=== PATIENT | male | born 1965 ===

== ENCOUNTER 2017-12-16 15:35 | Inpatient (IN) | payer BC, OTHER, MEDICARE ==
[2017-12-16 16:39] LABS: BASO # 0.1 K/uL (0.0-0.2); BASO % 0.5 % (0.0-2.0); EOS # 0.1 K/uL (0.0-0.7); EOS % 0.8 % (0.0-4.0); HEMOGLOBIN 11.6 g/dL (12.0-18.0); LYMPH # 1.4 K/uL (1.0-4.3); LYMPH % 9.8 % (20.0-40.0); MEAN CELL VOLUME 86.1 fl (80.0-94.0); MEAN CORPUSCULAR HEMOGLOBIN 27.7 pg (27.0-31.0); MEAN CORPUSCULAR HGB CONC 32.2 g/dL (33.0-37.0); MEAN PLATELET VOLUME 8.8 fl (7.2-11.7); MONO % 6.9 % (0.0-10.0); NEUT # 11.6 K/uL (1.8-7.0); PLATELET COUNT 232 K/uL (130-400); RBC 4.19 Mil/uL (4.40-5.90); RED CELL DISTRIBUTION WIDTH 15.3 % (11.5-14.5); WHITE BLOOD COUNT 14.1 K/uL (4.8-10.8)
[2017-12-16 16:42] LABS: INR 1.1
[2017-12-16 16:45] LABS: PARTIAL THROMBOPLASTIN TIME 31.4 Seconds (25.6-37.1)
--- NOTE | 2017-12-16 16:45 | ED PDOC ---
Lower Extremity Pain/Injury Time Seen by Provider: 12/16/17 15:53 Chief Complaint (Nursing): Lower Extremity Problem/Injury Chief Complaint (Provider): report of +DVT History Per: Family, Other (MS paperwork) Additional Complaint(s): 52yo male hx recent ICH in [place], s/p ventriculostomy, recently returned to [place] , presents w from [facility] for report of +DVT in E. Patient is nonverbal, communicates w gestures only. Per was having some dyspnea earlier today. Patient has an IVC filter, prior was on anticoagulaiton but had bladder hemorrhage. Also has current UTI from indwelling daniels, recently on Abx. PMD at [facility], no outpatient PMD do date in area, uses Dr Dacosta requesting him if requires admission Past Medical History Reviewed: Historical Data, Nursing Documentation, Vital Signs Vital Signs: Last Vital Signs Temp 97.9 F 12/16/17 15:37 Pulse 94 H 12/16/17 15:37 Resp 16 12/16/17 15:37 BP 91/62 L 12/16/17 15:37 Pulse Ox 97 12/16/17 15:37 - Medical History PMH: HTN (uncontrolled), Mitral Valve Prolapse Denies: Chronic Kidney Disease Other PMH: ICH - Surgical History Other surgeries: knee surgery, ventriculostomy s/p ICH - Family History Family History: States: Unknown Family Hx - Living Arrangements Living Arrangements: Prison/Assist Lvng - Social History Current smoker - smoking cessation education provided: No - Home Medications Home Medications: Ambulatory Orders Medication Instructions Recorded Atorvastatin [Lipitor] 40 mg PEG HS 01/30/16 amLODIPine [Norvasc] 10 mg PEG DAILY 01/30/16 Acetaminophen [Tylenol 325mg tab] 650 mg PEG Q4 PRN 12/16/17 Acetaminophen [Tylenol 325mg tab] 650 mg PEG Q4 PRN 12/16/17 Cefepime [Maxipime] 1 gm IV Q12 12/16/17 Clotrimazole/Betamethasone 1 appl TOP BID 12/16/17 [Lotrisone] Desmopressin [Ddavp] 0.1 mg PEG BID 12/16/17 Famotidine [Pepcid] 20 mg PEG HS 12/16/17 Glimepiride [amaRYL] 2 mg PEG DAILY 12/16/17 Insulin Regular [HumuLIN R] 2 - 12 unit SC Q6 12/16/17 Labetalol [Trandate] 200 mg PEG Q12 12/16/17 Losartan [Cozaar] 100 mg PEG DAILY 12/16/17 Ondansetron [Zofran Tab] 4 mg PEG Q8 PRN 12/16/17 Silver Sulfadiazine 1% [Silvadene 1 appl TOP BID 12/16/17 1%] - Allergies Allergies/Adverse Reactions: Allergies Allergy/AdvReac Type Severity Reaction Status Date / Time No Known Allergies Allergy Verified 01/30/16 18:07 Review of Systems Review Of Systems: ROS cannot be obtained secondary to pt's inabilty to answer questions. Physical Exam - Reviewed Nursing Documentation Reviewed: Yes Vital Signs Reviewed: Yes - Physical Exam Appears: Positive for: Non-toxic (obese bedbound nonverbal) Head Exam: Positive for: ATRAUMATIC, NORMAL INSPECTION, NORMOCEPHALIC Skin: Positive for: Normal Color, Warm, DRY Eye Exam: Positive for: EOMI, Normal appearance, PERRL ENT: Positive for: Normal ENT Inspection Neck: Positive for: Normal, Painless ROM, Trachea Midline (prior trach site healed) Cardiovascular/Chest: Positive for: Regular Rate, Rhythm Respiratory: Positive for: Decreased Breath Sounds. Negative for: Respiratory Distress Gastrointestinal/Abdominal: Positive for: Soft. Negative for: Tenderness Male Genital Exam: Positive for: normal genitalia, other (slight erythema scrotum and inner thighs nontender) Back: Positive for: Normal Inspection Extremity: Positive for: Pedal Edema, Swelling (L>R LE edema) Neurologic/Psych: Positive for: Alert, Motor/Sensory Deficits (chronic weakness bedbound nonverbal) - Laboratory Results Result Diagrams: 12/18/17 05:30 12/18/17 05:30 - ECG O2 Sat by Pulse Oximetry: 97 Medical Decision Making Medical Decision Making: workup for outpatient report of LLE DVT in patient w IVC and prior history of complications from anticoagulation. confirm DVT via duplex here Check CTA chest given SOB earlier Check labs r/o electrolyte derangement, dehydration and eval kidney function prior to CTA Disposition - Clinical Impression Clinical Impression: DVT (deep venous thrombosis), Hyperkalemia, Renal insufficiency - Patient ED Disposition Is Patient to be Admitted: Transfer of Care - Disposition Disposition: Transfer of Care Disposition Time: 16:49 Condition: STABLE Patient Signed Over To: Sandra Julian Handoff Comments: pending workup, labs, CTA/US Duplex and dispo/dx - POA Present On Arrival: Cath Associated UTI (indwelling daniels), Pressure Ulcer ( sacrum)
[2017-12-16 17:00] LABS: ALB/GLOB RATIO 1.1 (1.0-2.1); ALBUMIN 4.3 g/dL (3.5-5.0); CALCIUM 9.5 mg/dL (8.4-10.2)
[2017-12-16 17:04] LABS: TROPONIN I 0.013 ng/mL (0.00-0.120)
[2017-12-16] MEDS ORDERED: Iodixanol 320 MG/ML 100 ML BOTTLE IV ONE (17:16)
[2017-12-16] MEDS ORDERED: Sodium Chloride 0.9% 0 ML IV ONE (17:16)
[2017-12-16] MEDS ORDERED: Sod Polystyrene Sulf 15 gm/60 ml Susp PO ONE (17:27)
[2017-12-16] MEDS ORDERED: Albuterol 0.083% Inhal Sol (2.5 mg/3 mL) UD IH STA (17:27)
[2017-12-16] MEDS ORDERED: Calcium Gluconate 4.65 MEQ in Dextrose 5% In Water 100 ML IVP STA (17:28)
[2017-12-16] MEDS ORDERED: Dextrose 50% SYRINGE Inj (50 ml) IVP ONE (17:28)
[2017-12-16] MEDS ORDERED: Insulin Regular 100 units/ml IVP STA (17:28)
[2017-12-16] MEDS ORDERED: Sodium Chloride 0.9% 1,000 ML IV STA ×2 (17:31→19:11)
[2017-12-16 17:41] LABS: ANISOCYTOSIS SLIGHT; BANDS 1 % (0-2); HYPOCHROMIC SLIGHT; LYMPHOCYTE 8 % (20-50); MONOCYTE 5 % (0-10); MYELOCYTE 2 % (0-0); NEUTROPHIL 79 % (42-75); PLATELET ESTIMATE NORMAL (NORMAL); REACTIVE LYMPHOCYTES 5 % (0-0); STOMATOCYTES SLIGHT; TOTAL CELLS COUNTED 100
[2017-12-16] MEDS ORDERED: Dextrose 50% SYRINGE Inj (50 ml) ONE (17:44)
[2017-12-16] MEDS ORDERED: Albuterol 0.083% Inhal Sol (2.5 mg/3 mL) UD ONE (17:44)
[2017-12-16] MEDS ORDERED: Insulin Regular 100 units/ml ONE (17:45)
--- NOTE | 2017-12-16 19:11 | ED PDOC ---
- Laboratory Results Result Diagrams: 12/17/17 05:30 12/17/17 09:10 - ECG O2 Sat by Pulse Oximetry: 100 (RA) Pulse Ox Interpretation: Normal - Radiology X-Ray: Interpreted by Me X-Ray Interpretation: No Acute Disease - Critical Care Total Time (In Min): 30 Documented Critical Care: Time excludes all time spent performint seperately billable procedures Medical Decision Making Medical Decision Making: Time: 1699 -- Received endorsement from Dr. Rahman. Patient with leg swelling and outpatient ultrasound demonstrated DVT in the left lower extremity and shortness of breath, pending ER workup, re-assessment and final ER dispostion. -- Labs demonstrate a very elevated potassium level. Family reports a history of this. -- EKG demonstrates peaked T waves. -- Hypekalemia therapy ordered. -- Decreased GFR noted and therefore cannot undergo CT Angio of the chest -- Patient pending US of the left lower extremity and arterial dopler of the left lower extremity. Time: 1916 ARTERIAL US RESULTS FINDINGS: Biphasic waveforms are identified on spectral Doppler analysis throughout all the vessels described be low which is a pattern that may indicate mild-to- moderate stenosis at the left iliac arterial system in the pelvis or variably throughout the arteries listed be low though and no significant morphological stenosis is demonstrated at the left lower extremity. COMMON FEMORAL ARTERY: Patent. Maximal flow velocity of 89.5 cm/s. SUPERFICIAL FEMORAL ARTERY:Patent. Maximal flow velocity of 55.3 cm/s. POPLITEAL ARTERY:Patent. Maximal flow velocity of 44.8 cm/s. POSTERIOR TIBIAL ARTERY: Patent. Maximal flow velocity of 76.5 cm/s. DORSALIS PEDIS ARTERY: Patent. Maximal flow velocity of 19.1 cm/s. OTHER FINDINGS: None. IMPRESSION: No high-grade stenosis throughout the left lower extremity arteries discussed above. Bpbn-vt-[id number] left iliac arterial system stenosis may be present in the pelvis or intrinsically within the left lower extremity arteries as discussed above though no morphological stenosis is demonstrated. Further care station by CT angiography of the left upper extremity can be performed if clinically warranted. Time: 1927 LOWER EXTREMITY US RESULTS FINDINGS: At the right lower extremity, there is nonocclusive thrombosis identified at the right common femoral vein at the level of the saphenofemoral junction. No augmentation is seen throughout area Echogenic material is noted in the lumen and there is partial compressibility. Poor color blood flows also identified. Further, a similar pattern affects the proximal right superficial femoral vein compatible with the same. There is no compression at the mid and distal SFV segments nor the popliteal vein or posterior tibial vein compatible with occlusive thrombosis in all of these segments. At the left lower extremity, a nearly identical pattern of partial thrombosis is seen at the left common femoral vein however there is no compressibility identified at the left superficial femoral vein throughout and there is also no color blood flow appreciated. The lumen is echogenic compared to the its normal appearance and this pattern extends into the popliteal vein and post tibial vein. IMPRESSION: Nonocclusive thrombosis right common and proximal superficial veins with remainder completely occluded. Nonocclusive thrombosis right common femoral vein. Occlusive thrombosis otherwise seen throughout the remainder of the right lower extremity veins discussed above. Findings discussed with Dr. Julian with written down read back verification 7:20 p.m. by myself with the ER nurse Milton notified by a the technologist 6:52 p.[address] same date. DW Dr Reyna Hospitalist for pt's PMD Dr [place] [place] to be hospitalized in ICU for bilateral DVT, relative hypotension, hyperkalemia with EKG findings. Scribe Attestation: Documented by Connie Lin acting as a scribe for Dr. Sandra Julian. Provider Scribe Attestation: All medical record entries made by the Scribe were at my direction and personally dictated by me. I have reviewed the chart and agree that the record accurately reflects my personal performance of the history, physical exam, medical decision making, and the department course for this patient. I have also personally directed, reviewed, and agree with the discharge instructions and disposition. Disposition Counseled Patient/Family Regarding: Studies Performed, Diagnosis - Clinical Impression Clinical Impression: DVT (deep venous thrombosis), Hyperkalemia, Renal insufficiency - POA Present On Arrival: Deep Vein Thrombosis / PE - Disposition Disposition: Admitted as In-Patient Disposition Time: 19:35 Condition: CRITICAL
--- NOTE | 2017-12-16 19:19 | US ---
Date of service: 12/16/2017 PROCEDURE: Duplex ultrasound of the left lower extremity arteries. HISTORY: LEFT leg sewlling COMPARISON: None available. TECHNIQUE: Grayscale and duplex Doppler evaluation of the left common femoral, superficial femoral, popliteal, posterior tibial and dorsalis pedis arteries was performed.. FINDINGS: Biphasic waveforms are identified on spectral Doppler analysis throughout all the vessels described be low which is a pattern that may indicate htca-hy-egktqsor stenosis at the left iliac arterial system in the pelvis or variably throughout the arteries listed be low though and no significant morphological stenosis is demonstrated at the left lower extremity. COMMON FEMORAL ARTERY: Patent. Maximal flow velocity of 89.5 cm/s. SUPERFICIAL FEMORAL ARTERY:Patent. Maximal flow velocity of 55.3 cm/s. POPLITEAL ARTERY:Patent. Maximal flow velocity of 44.8 cm/s. POSTERIOR TIBIAL ARTERY: Patent. Maximal flow velocity of 76.5 cm/s. DORSALIS PEDIS ARTERY: Patent. Maximal flow velocity of 19.1 cm/s. OTHER FINDINGS: None. IMPRESSION: No high-grade stenosis throughout the left lower extremity arteries discussed above. Xhvw-fv-prersmoj left iliac arterial system stenosis may be present in the pelvis or intrinsically within the left lower extremity arteries as discussed above though no morphological stenosis is demonstrated. Further care station by CT angiography of the left upper extremity can be performed if clinically warranted.
--- NOTE | 2017-12-16 19:29 | US ---
Date of service: 12/16/2017 PROCEDURE: BILATERAL LOWER EXTREMITY VENOUS ULTRASOUND HISTORY: confirm as outpt LLE COMPARISON: None available. TECHNIQUE: Grayscale and duplex Doppler ultrasonography was performed including graded compression and augmentation at the bilateral common and superficial femoral as well as popliteal veins with bilateral posterior tibial veins also included. FINDINGS: At the right lower extremity, there is nonocclusive thrombosis identified at the right common femoral vein at the level of the saphenofemoral junction. No augmentation is seen throughout area Echogenic material is noted in the lumen and there is partial compressibility. Poor color blood flows also identified. Further, a similar pattern affects the proximal right superficial femoral vein compatible with the same. There is no compression at the mid and distal SFV segments nor the popliteal vein or posterior tibial vein compatible with occlusive thrombosis in all of these segments. At the left lower extremity, a nearly identical pattern of partial thrombosis is seen at the left common femoral vein however there is no compressibility identified at the left superficial femoral vein throughout and there is also no color blood flow appreciated. The lumen is echogenic compared to the its normal appearance and this pattern extends into the popliteal vein and post tibial vein. IMPRESSION: Nonocclusive thrombosis right common and proximal superficial veins with remainder completely occluded. Nonocclusive thrombosis right common femoral vein. Occlusive thrombosis otherwise seen throughout the remainder of the right lower extremity veins discussed above. Findings discussed with Dr. Julian with written down read back verification 12/16/2017 7:20 p.m. by myself with the ER nurse Milton notified by a the technologist 6:52 p.m. same date.
[2017-12-16] MEDS ORDERED: Cefepime (Maxipime) 1 g Inj IVPB SCH (21:00)
[2017-12-16] MEDS: Sodium Chloride 0.9% 1,000 ML IV SCH (22:07)
[2017-12-16] MEDS: Cefepime 1 GM in Sodium Chloride 0.9% 100 ML IVPB SCH (22:35)
--- NOTE | 2017-12-16 22:58 | CP.PCM.HP ---
History of Present Illness - History of Present Illness History of Present Illness: This is a 52 year old male, patient of Dr. Servin, with a recent ICH on September 24, 2017 in [place], s/p ventriculostomy, w/ PEG tube, nonverbal, who presented from [facility] today after found to have Left lower extremity DVT. The patient also has a history of mitral valve prolapse, HTN, and type 2 diabetes mellitus requiring insulin. Additionally 2 days ago he was diagnosed with a UTI and was started on Cefepime at [facility]. In the ED, the patient was noted to be dehydrated and hypotensive with a blood pressure of 91/62, which responded to fluid challenge. However he was noted to have an elevated potassium of 6.5 and EKG changes showing peaked T waves, particularly in leads V2 and V3. He was given Calcium chloride 1500 mg IV, D50/ Insulin, and albuterol for this. US dopplers reveal several DVT bilaterally. His bilateral extremities are cool but with good capillary reflex and color. CT angio of the chest was to be performed, however this was unable to be done due to decreased GFR. Of note the patient had an IVC filter placed in September when he was being treated for ICH. The patient's is at bedside and states that the patient's code status is full code. The patient is nonverbal and unable to give any history or review of systems. He is being admitted to ICU for close monitoring due to his hyperkalemia with EKG changes. Present on Admission - Present on Admission Any Indicators Present on Admission: Yes History of DVT/PE: Yes History of Uncontrolled Diabetes: Yes Review of Systems - Review of Systems Systems not reviewed;Unavailable: Other (nonverbal, somnolent) Past Patient History - Infectious Disease Hx of Infectious Diseases: None - Past Medical History & Family History Past Medical History?: Yes Past Family History: Reviewed and not pertinent - Past Social History Smoking Status: Never Smoked Alcohol: None Drugs: Denies Home Situation {Lives}: Half-Way - CARDIAC Hx Cardiac Disorders: Yes - PULMONARY Hx Respiratory Disorders: No - NEUROLOGICAL Hx Neurological Disorder: Yes HX Cerebrovascular Accident: Yes (x 4 times) - HEENT Other/Comment: Double/Triple vision when looking to the right. Blurry vision and pain. oculomotor nerve palsy - RENAL Hx Chronic Kidney Disease: No - ENDOCRINE/METABOLIC Hx Diabetes Insipidus: Yes Hx Diabetes Mellitus Type 2: Yes - MUSCULOSKELETAL/RHEUMATOLOGICAL Hx Falls: No - GASTROINTESTINAL Hx Constipation: Yes (Started 2 yrs ago) - GENITOURINARY/GYNECOLOGICAL Hx Genitourinary Disorders: Yes - PSYCHIATRIC Hx Substance Use: No - SURGICAL HISTORY Hx Arthroscopy: Yes (Bilateral Knee Twice ([id number])) Other/Comment: Cerebral intraventricular surgery (stroke). Abdominal IVC filter. - ANESTHESIA Hx Anesthesia: Yes Hx Anesthesia Reactions: No Hx Malignant Hyperthermia: No Meds Allergies/Adverse Reactions: Allergies Allergy/AdvReac Type Severity Reaction Status Date / Time No Known Allergies Allergy Verified 01/30/16 18:07 Physical Exam - Additional Findings Additional findings: Physical exam: Constitutional- nonverbal, communicates with gestures only, somnolent Head- NCAT, PERRL Eye- PERRL, + occulomotor palsy, EOMI ENT- normal exam, MMM. Neck- normal inspection, supple, no JVD Respiratory- CTAB, no wheezes rales rhonchi Cardiovascular- RRR, +S1, +S2 no MRG GI/Abdominal- normal bowel sounds, soft, no mass, no hsm Skin- warm, dry Extremities Exam- normal capillary refill, extremities are cool but with good color. bilateral +2 lower extremity edema. Neurological Exam- alert, awake, oriented Psych- normal mood, normal affect Results - Vital Signs Recent Vital Signs: Last Vital Signs Temp 98.2 F 12/16/17 22:00 Pulse 96 H 12/16/17 22:00 Resp 25 H 12/16/17 22:00 BP 107/69 12/16/17 22:00 Pulse Ox 98 12/16/17 22:00 - Labs Result Diagrams: 12/16/17 16:34 12/16/17 16:34 Labs: Laboratory Results - last 24 hr 12/16/17 12/16/17 12/16/17 16:34 16:34 16:34 WBC 14.1 H RBC 4.19 L Hgb 11.6 L D Hct 36.1 MCV 86.1 MCH 27.7 MCHC 32.2 L RDW 15.3 H Plt Count 232 MPV 8.8 Neut % (Auto) 82.0 H Lymph % (Auto) 9.8 L [place] % (Auto) 6.9 Eos % (Auto) 0.8 Baso % (Auto) 0.5 Neut # (Auto) 11.6 H Lymph # (Auto) 1.4 [place] # (Auto) 1.0 H Eos # (Auto) 0.1 Baso # (Auto) 0.1 Neutrophils % (Manual) 79 H Band Neutrophils % 1 Lymphocytes % (Manual) 8 L Reactive Lymphs % 5 H Monocytes % (Manual) 5 Myelocytes % 2 H Platelet Estimate Normal Hypochromasia (manual) Slight Anisocytosis (manual) Slight Stomatocytes Slight PT 12.0 INR 1.1 APTT 31.4 Sodium 135 Potassium 6.5 H* D Chloride 99 Carbon Dioxide 22 Anion Gap 21 H BUN 49 H Creatinine 1.6 H Est GFR ( Amer) 55 Est GFR (Non-Af Amer) 46 POC Glucose (mg/dL) Random Glucose 185 H Calcium 9.5 Total Bilirubin 0.7 AST 28 ALT 38 Alkaline Phosphatase 78 Troponin I 0.0130 NT-Pro-B Natriuret Pep 427 Total Protein 8.4 H Albumin 4.3 Globulin 4.0 H Albumin/Globulin Ratio 1.1 12/16/17 17:30 WBC RBC Hgb Hct MCV MCH MCHC RDW Plt Count MPV Neut % (Auto) Lymph % (Auto) [place] % (Auto) Eos % (Auto) Baso % (Auto) Neut # (Auto) Lymph # (Auto) [place] # (Auto) Eos # (Auto) Baso # (Auto) Neutrophils % (Manual) Band Neutrophils % Lymphocytes % (Manual) Reactive Lymphs % Monocytes % (Manual) Myelocytes % Platelet Estimate Hypochromasia (manual) Anisocytosis (manual) Stomatocytes PT INR APTT Sodium Potassium Chloride Carbon Dioxide Anion Gap BUN Creatinine Est GFR ( Amer) Est GFR (Non-Af Amer) POC Glucose (mg/dL) 167 H Random Glucose Calcium Total Bilirubin AST ALT Alkaline Phosphatase Troponin I NT-Pro-B Natriuret Pep Total Protein Albumin Globulin Albumin/Globulin Ratio Assessment & Plan - Assessment and Plan (Free Text) Plan: This is a 52 year old male, patient of Dr. Servin, with a recent ICH on September 24, 2017 in [place], s/p ventriculostomy, w/ PEG tube, nonverbal, who presented from [facility] today after found to have Left lower extremity DVT. The patient also has a history of mitral valve prolapse, HTN, and type 2 diabetes mellitus requiring insulin. Additionally 2 days ago he was diagnosed with a UTI and was started on Cefepime at [facility]. In the ED, the patient was noted to be dehydrated and hypotensive with a blood pressure of 91/62, which responded to fluid challenge. However he was noted to have an elevated potassium of 6.5 and EKG changes showing peaked T waves, particularly in leads V2 and V3. He was given Calcium chloride 1500 mg IV, D50/ Insulin, and albuterol for this. US dopplers reveal several DVT bilaterally. His bilateral extremities are cool but with good capillary reflex and color. CT angio of the chest was to be performed, however this was unable to be done due to decreased GFR. Of note the patient had an IVC filter placed in September when he was being treated for ICH. Patient being admitted to ICU for close monitoring. 1) Iatrogenic hyperkalemia with EKG changes - Admit to ICU - Tx was given in ED, repeat BMP tonight to monitor - Repeat EKG in AM - Patient [facility] Kdur 20 meq BID [facility] which we will [facility] - Monitor vitals / telemetry closely 2) Acute bilateral lower extremity DVT, with nonocclusive thrombosis at the right common femoral vein and proximal superficial veins, with distal superficial veins occluded. LLE also has partial thrombosis of the left common femoral vein with occlusion of the superficial femoral vein. - Anticoagulation is a concern given recent ICH, will hold off for now. Will consult Dr. Noel for neurology - Patient has IVC filter in place, however should still rule out pulmonary embolism. Will attempt CT angio in AM if renal function improved, otherwise will perform VQ scan. Respiratory camargo patient is stable and saturating well on room air Extremities cool and edematous but patient has good capillary refill and good color 3) Acute renal insufficiency, likely due to dehydration / prerenal azotemia, also consider urinary retention as cause - Patient had normal renal function 02/07 - Continue aggressive hydration with normal saline - monitor urine output 4) Type 2 DM requiring insulin - Lispro sliding scale with Accucheks q 6 hours - Resume tube feedings when clinical status improved 5) Hypovolemic hypotension, improved with fluids - Continue normal salin at 200 cc/hour overnight - BP improved to 100/69 currently 6) UTI - Continue Cefepime which was being given in SNF - Follow urine culture - May be cause of leukocytosis
[2017-12-16] MEDS: Insulin Lispro (humaLOG) 100 Units/ml Inj SC SCH (23:27)
[2017-12-16] MEDS: Famotidine 40 MG/5 ML PEG SCH (23:30)
[2017-12-17 01:44] VITALS: BMI 36.1
[2017-12-17] MEDS: Sodium Chloride 0.9% 1,000 ML IV SCH ×2 (04:39→12:01)
[2017-12-17] MEDS: Insulin Lispro (humaLOG) 100 Units/ml Inj SC SCH ×3 (06:02→16:44)
[2017-12-17 06:03] LABS: HEMOGLOBIN 10.2 g/dL (12.0-18.0); MEAN CELL VOLUME 86.3 fl (80.0-94.0); MEAN CORPUSCULAR HEMOGLOBIN 27.8 pg (27.0-31.0); MEAN CORPUSCULAR HGB CONC 32.2 g/dL (33.0-37.0); RBC 3.66 Mil/uL (4.40-5.90); RED CELL DISTRIBUTION WIDTH 15.6 % (11.5-14.5); WHITE BLOOD COUNT 14.7 K/uL (4.8-10.8)
[2017-12-17 06:59] LABS: SQUAMOUS EPITHIAL < 1 /hpf (0-5); URINE BACTERIA RARE (<OCC); URINE BILIRUBIN NEGATIVE (NEGATIVE); URINE BLOOD NEGATIVE (NEGATIVE); URINE CLARITY CLOUDY (Clear); URINE COLOR AMBER (YELLOW); URINE GLUCOSE (UA) NEG (Normal); URINE LEUKOCYTE ESTERASE TRACE Leu/uL (Negative); URINE PROTEIN >=500 mg/dL (NEGATIVE); URINE UROBILINOGEN 0.2-1.0 mg/dL (0.2-1.0)
--- NOTE | 2017-12-17 08:20 | CARD ---
APPROVED REPORT Date of service: 12/16/2017 <Conclusion> Normal sinus rhythm Nonspecific ST and T wave abnormality Abnormal ECG
[2017-12-17] MEDS: Cefepime 1 GM in Sodium Chloride 0.9% 100 ML IVPB SCH ×2 (08:25→22:21)
[2017-12-17] MEDS ORDERED: Silver Sulfadiazine 1% CREAM (50 gm) TOP SCH (09:00)
--- NOTE | 2017-12-17 09:25 | CP.PCM.PN ---
Subjective - Date & Time of Evaluation Date of Evaluation: 12/17/17 Time of Evaluation: 11:30 - Subjective Subjective: Patient seen bedside. Lying in bed in no respiratory distress, non verbal with left side weakness and neglect Tachycardic HR 105 BP stable 105/60 WBC 14 K BUN/Cr 52/1.[address] with good urine output peg tube in place Objective - Vital Signs/Intake and Output Vital Signs (last 24 hours): Temp Pulse Resp BP Pulse Ox 98.5 F 102 H 98 H 128/64 98 12/17/17 08:00 12/17/17 09:00 12/17/17 09:00 12/17/17 09:00 12/17/17 08:00 Intake and Output: 12/17/17 12/17/17 06:59 18:59 Intake Total 2200 200 Output Total 500 Balance 1700 200 - Medications Medications: Current Medications Acetaminophen (Tylenol 325mg Tab) 650 mg PEG Q4 PRN PRN Reason: Temp >100 Acetaminophen (Tylenol 325mg Tab) 650 mg PEG Q4 PRN PRN Reason: Pain, Mild (1-3) Last Admin: 12/17/17 05:41 Dose: 650 mg Clotrimazole (Lotrimin 1% Cream) 1 applic TOP BID [facility] Last Admin: 12/17/17 08:27 Dose: 1 applic Famotidine (Pepcid) 20 mg PEG HS [facility] Last Admin: 12/16/17 23:30 Dose: 20 mg Sodium Chloride (Sodium Chloride 0.9%) 1,000 mls @ 200 mls/hr IV .Q5H [facility] Last Admin: 12/17/17 04:39 Dose: 200 mls/hr Cefepime HCl 1 gm/ Sodium (Chloride) 100 mls @ 100 mls/hr IVPB Q12 [facility] Last Admin: 12/17/17 08:25 Dose: 100 mls/hr Insulin Human Lispro (Humalog) 0 units SC ACCU-CHECK [facility] PRN Reason: Protocol Last Admin: 12/17/17 06:02 Dose: Not Given Ondansetron HCl (Zofran Tab) 4 mg PEG Q8 PRN PRN Reason: Nausea/Vomiting Pantoprazole Sodium (Protonix Inj) 40 mg IVP DAILY [facility] Last Admin: 12/17/17 08:25 Dose: 40 mg Silver Sulfadiazine (Silvadene 1% 50 Gm) 1 applic TOP BID [facility] - Labs Labs: 12/17/17 05:30 12/16/17 16:34 PT 12.0 Seconds (9.8-13.1) 12/16/17 16:34 INR 1.1 12/16/17 16:34 APTT 31.4 Seconds (25.6-37.1) 12/16/17 16:34 - Constitutional Appears: Non-toxic, No Acute Distress - Head Exam Head Exam: ATRAUMATIC, NORMOCEPHALIC - Eye Exam Eye Exam: PERRL Pupil Exam: NORMAL ACCOMODATION - ENT Exam ENT Exam: Mucous Membranes Dry, Normal Exam - Neck Exam Neck Exam: Normal Inspection - Respiratory Exam Respiratory Exam: Clear to Ausculation Bilateral, NORMAL BREATHING PATTERN. absent: Rales, Rhonchi, Wheezes - Cardiovascular Exam Cardiovascular Exam: Tachycardia, REGULAR RHYTHM. absent: JVD - GI/Abdominal Exam GI & Abdominal Exam: Soft. absent: Distended, Guarding, Tenderness, Normal Bowel Sounds, Rebound Additional comments: peg tube in place - Rectal Exam Rectal Exam: Deferred - Extremities Exam Extremities Exam: Normal Capillary Refill Additional comments: LLE selling - Neurological Exam Neurological Exam: Alert, Awake Neuro motor strength exam: Left Upper Extremity: 0, Left Lower Extremity: 0 Additional comments: left side weakness and neglect non verbal - Psychiatric Exam Psychiatric exam: Flat Affect - Skin Skin Exam: Dry, Warm Assessment and Plan - Assessment and Plan (Free Text) Assessment: 52 year old male, patient of Dr. Servin, with a recent ICH on September 24, 2017 in [place], s/p ventriculostomy, w/ PEG tube, nonverbal, presented from [facility] today after found to have Left lower extremity DVT. The patient also has a history of mitral valve prolapse, HTN, and type 2 diabetes mellitus requiring insulin. Additionally 2 days ago he was diagnosed with a UTI and was started on Cefepime at [facility]. In the ED, the patient was noted to be dehydrated and hypotensive with a blood pressure of 91/62, which responded to fluid challenge. However he was noted to have an elevated potassium of 6.5 and EKG changes showing peaked T waves, particularly in leads V2 and V3. He was given Calcium chloride 1500 mg IV, D50/ Insulin, and albuterol for this. US dopplers reveal several DVT bilaterally. His bilateral extremities are cool but with good capillary reflex and color. CT angio of the chest was to be performed, however this was unable to be done due to decreased GFR. Of note the patient had an IVC filter placed in September when he was being treated for ICH. Patient being admitted to ICU for close monitoring. 1.Iatrogenic hyperkalemia with EKG changes Given treatment with D50 , insulin , IVF, Duonebs calcium gluconate Repeat K 5.3 D/c Kdur supplements Transfer to telemetry Repeat BMP in AM 2. Acute bilateral lower extremity DVT with nonocclusive thrombosis at the right common femoral vein and proximal superficial veins, with distal superficial veins occluded. LLE also has partial thrombosis of the left common femoral vein with occlusion of the superficial femoral vein. Patient has recent ICH in September 2017 so anticoagulation is a concern for bleed .Will hold off anticoagulation since patient has IVC filter Respiratory camargo patient is stable and saturating well on room air 3.Acute renal insufficiency likely due to dehydration / prerenal azotemia, also consider urinary retention as cause improving Continue IVF and repeat BMP in AM 4. Type 2 DM requiring insulin Lispro sliding scale with Accucheks q 6 hours Resume tube feeding 5. Hypovolemic hypotension, improved with fluids IVF BP improved to 100/69 currently 6. UTI Continue Cefepime which was being given in SNF f/u urine cx 7. Mild anemia unclear etiology stable 8. Recent ICH with left side weakness , neglect and non verbal will need to continue PT in rehab
[2017-12-17 09:43] LABS: ALB/GLOB RATIO 1.1 (1.0-2.1); ALBUMIN 3.8 g/dL (3.5-5.0); CALCIUM 9.1 mg/dL (8.4-10.2)
[2017-12-17] MEDS ORDERED: Silver Sulfadiazine 1% Cream (20 gm) TOP SCH (11:45)
--- NOTE | 2017-12-17 16:20 | RAD ---
Date of service: 12/16/2017 HISTORY: sob COMPARISON: No prior. FINDINGS: LUNGS: Poor inspiration with low lung volumes, crowded bronchovascular markings and mild bibasilar atelectasis. PLEURA: No significant pleural effusion identified, no pneumothorax apparent. CARDIOVASCULAR: Mild cardiomegaly. OSSEOUS STRUCTURES: No significant abnormalities. VISUALIZED UPPER ABDOMEN: Normal. OTHER FINDINGS: None. IMPRESSION: Poor inspiration with low lung volumes, crowded bronchovascular markings and mild bibasilar atelectasis.
[2017-12-17] MEDS: Famotidine 40 MG/5 ML PEG SCH (22:22)
[2017-12-18] MEDS: Insulin Lispro (humaLOG) 100 Units/ml Inj SC SCH ×3 (01:38→11:43)
[2017-12-18] MEDS: Sodium Chloride 0.9% 1,000 ML IV SCH (02:51)
[2017-12-18 06:45] LABS: BLOOD UREA NITROGEN 47 mg/dl (9-20); CALCIUM 9.3 mg/dL (8.4-10.2); GFR NON-AFRICAN AMERICAN > 60
[2017-12-18 06:47] LABS: HEMOGLOBIN 10.2 g/dL (12.0-18.0); MEAN CORPUSCULAR HEMOGLOBIN 28.1 pg (27.0-31.0); MEAN CORPUSCULAR HGB CONC 33.1 g/dL (33.0-37.0); RBC 3.63 Mil/uL (4.40-5.90); RED CELL DISTRIBUTION WIDTH 15.1 % (11.5-14.5); WHITE BLOOD COUNT 13.3 K/uL (4.8-10.8)
--- NOTE | 2017-12-18 07:03 | CP.PCM.DIS ---
Provider - Provider Date of Admission: 12/16/17 19:34 Attending physician: Parker Reyna DO Primary care physician: none Consults: neurology consult Time Spent in preparation of Discharge (in minutes): 15 Hospital Course - Lab Results Lab Results: Micro Results 12/16/17 20:30 Blood-Venous Blood Culture - Preliminary NO GROWTH AFTER 24 HOURS Most Recent Lab Values WBC 13.3 K/uL (4.8-10.8) H 12/18/17 05:30 RBC 3.63 Mil/uL (4.40-5.90) L 12/18/17 05:30 Hgb 10.2 g/dL (12.0-18.0) L 12/18/17 05:30 Hct 30.8 % (35.0-51.0) L 12/18/17 05:30 MCV 85.0 fl (80.0-94.0) 12/18/17 05:30 MCH 28.1 pg (27.0-31.0) 12/18/17 05:30 MCHC 33.1 g/dL (33.0-37.0) 12/18/17 05:30 RDW 15.1 % (11.5-14.5) H 12/18/17 05:30 Plt Count 279 K/uL (130-400) 12/18/17 05:30 MPV 8.8 fl (7.2-11.7) 12/16/17 16:34 Neut % (Auto) 82.0 % (50.0-75.0) H 12/16/17 16:34 Lymph % (Auto) 9.8 % (20.0-40.0) L 12/16/17 16:34 Aiken % (Auto) 6.9 % (0.0-10.0) 12/16/17 16:34 Eos % (Auto) 0.8 % (0.0-4.0) 12/16/17 16:34 Baso % (Auto) 0.5 % (0.0-2.0) 12/16/17 16:34 Neut # (Auto) 11.6 K/uL (1.8-7.0) H 12/16/17 16:34 Lymph # (Auto) 1.4 K/uL (1.0-4.3) 12/16/17 16:34 Aiken # (Auto) 1.0 K/uL (0.0-0.8) H 12/16/17 16:34 Eos # (Auto) 0.1 K/uL (0.0-0.7) 12/16/17 16:34 Baso # (Auto) 0.1 K/uL (0.0-0.2) 12/16/17 16:34 Neutrophils % (Manual) 79 % (42-75) H 12/16/17 16:34 Band Neutrophils % 1 % (0-2) 12/16/17 16:34 Lymphocytes % (Manual) 8 % (20-50) L 12/16/17 16:34 Reactive Lymphs % 5 % (0-0) H 12/16/17 16:34 Monocytes % (Manual) 5 % (0-10) 12/16/17 16:34 Myelocytes % 2 % (0-0) H 12/16/17 16:34 Platelet Estimate Normal (NORMAL) 12/16/17 16:34 Hypochromasia (manual) Slight 12/16/17 16:34 Anisocytosis (manual) Slight 12/16/17 16:34 Stomatocytes Slight 12/16/17 16:34 PT 12.0 Seconds (9.8-13.1) 12/16/17 16:34 INR 1.1 12/16/17 16:34 APTT 31.4 Seconds (25.6-37.1) 12/16/17 16:34 Sodium 139 mmol/l (132-148) 12/18/17 05:30 Potassium 4.7 MMOL/L (3.6-5.0) 12/18/17 05:30 Chloride 106 mmol/L (98-107) 12/18/17 05:30 Carbon Dioxide 24 mmol/L (22-30) 12/18/17 05:30 Anion Gap 14 (10-20) 12/18/17 05:30 BUN 47 mg/dl (9-20) H 12/18/17 05:30 Creatinine 0.9 mg/dl (0.8-1.5) 12/18/17 05:30 Est GFR ( Amer) > 60 12/18/17 05:30 Est GFR (Non-Af Amer) > 60 12/18/17 05:30 POC Glucose (mg/dL) 98 mg/dL (65-110) 12/18/17 05:30 Random Glucose 114 mg/dL (75-110) H 12/18/17 05:30 Calcium 9.3 mg/dL (8.4-10.2) 12/18/17 05:30 Phosphorus 5.7 mg/dl (2.5-4.5) H 12/17/17 09:10 Magnesium 2.3 MG/DL (1.6-2.3) 12/17/17 09:10 Total Bilirubin 0.6 mg/dl (0.2-1.3) 12/17/17 09:10 AST 24 U/L (17-59) 12/17/17 09:10 ALT 31 U/L (21-72) 12/17/17 09:10 Alkaline Phosphatase 69 U/L (38-126) 12/17/17 09:10 Troponin I 0.0130 ng/mL (0.00-0.120) 12/16/17 16:34 NT-Pro-B Natriuret Pep 427 pg/ml (0-900) 12/16/17 16:34 Total Protein 7.2 G/DL (6.3-8.2) 12/17/17 09:10 Albumin 3.8 g/dL (3.5-5.0) 12/17/17 09:10 Globulin 3.4 gm/dL (2.2-3.9) 12/17/17 09:10 Albumin/Globulin Ratio 1.1 (1.0-2.1) 12/17/17 09:10 Procalcitonin 0.19 NG/ML (0.19-0.49) 12/16/17 20:30 Urine Color Courtney (YELLOW) 12/17/17 06:42 Urine Clarity Cloudy (Clear) 12/17/17 06:42 Urine pH 5.0 (5.0-8.0) 12/17/17 06:42 Ur Specific [place] 1.027 (1.003-1.030) 12/17/17 06:42 Urine Protein >=500 mg/dL (NEGATIVE) 12/17/17 06:42 Urine Glucose (UA) Neg mg/dL (Normal) 12/17/17 06:42 Urine Ketones Negative mg/dL (NEGATIVE) 12/17/17 06:42 Urine Blood Negative (NEGATIVE) 12/17/17 06:42 Urine Nitrate Negative (NEGATIVE) 12/17/17 06:42 Urine Bilirubin Negative (NEGATIVE) 12/17/17 06:42 Urine Urobilinogen 0.2-1.0 mg/dL (0.2-1.0) 12/17/17 06:42 Ur Leukocyte Esterase Trace Byron/uL (Negative) 12/17/17 06:42 Urine RBC (Auto) 34 /hpf (0-3) H 12/17/17 06:42 Urine Microscopic WBC 146 /hpf (0-5) H 12/17/17 06:42 Ur Squamous Epith Cells < 1 /hpf (0-5) 12/17/17 06:42 Urine Bacteria Rare (<OCC) 12/17/17 06:42 Urine Yeast (Budding) Occ /hpf (NEGATIVE) H 12/17/17 06:42 - Hospital Course Hospital Course: 52 year old male, patient of Dr. Servin, with a recent ICH on September 24, 2017 in [place], s/p ventriculostomy, w/ PEG tube, nonverbal, presented from [facility] after found to have Left lower extremity DVT. The patient also has a history of mitral valve prolapse, HTN, and type 2 diabetes mellitus requiring insulin. Additionally 2 days ago he was diagnosed with a UTI and was started on Cefepime at [facility]. In the ED, the patient was noted to be dehydrated and hypotensive with a blood pressure of 91/62, which responded to fluid challenge. However he was noted to have an elevated potassium of 6.5 and EKG changes showing peaked T waves, particularly in leads V2 and V3. He was given Calcium chloride 1500 mg IV, D50/ Insulin, and albuterol for this. US dopplers reveal several DVT bilaterally. His bilateral extremities are with good capillary reflex and color. Of note the patient had an IVC filter placed in September when he was being treated for ICH and hematuria. Patient was admitted in ICU for close monitoring, started on IVF, treated for hyperkalemia and resumed his other meds.Upon review of his home meds noted that he was taking Kdur 20 MEQ po bid so it was discontinued . Due to his recent ICH and hematuria patient is not a candidate for anticoagulation . His Shabbir improved with hydration At present he is hemodynamically stable, afebrile , non verbal with left side weakness and neglect Will discharge patient back to [facility] for continuation of his treatment and PT . Follow up with MD at [facility] All results were discussed with patient's and all questions were ANSWERED. 1.Iatrogenic hyperkalemia with EKG changes Given treatment with D50 , insulin , IVF, Duonebs calcium gluconate D/c Kdur supplements repeat K within normal range 2. Acute bilateral lower extremity DVT with nonocclusive thrombosis at the right common femoral vein and proximal superficial veins, with distal superficial veins occluded. LLE also has partial thrombosis of the left common femoral vein with occlusion of the superficial femoral vein. Patient has recent ICH in September 2017 so anticoagulation is a concern for bleed .Will hold off anticoagulation since patient has IVC filter Respiratory camargo patient is stable and saturating well on room air 3.Acute renal insufficiency likely due to dehydration / prerenal azotemia improved with hydration Gomez replaced and draining wel 4. Type 2 DM requiring insulin Lispro sliding scale with Accucheks q 6 hours Resumed tube feeding with water flushes 5. Hypovolemic hypotension, improved with fluids IVF BP improved to 100/69 currently 6. UTI Continue Cefepime which was being given in SNF 7. Mild anemia unclear etiology stable 8. Recent ICH with left side weakness , neglect and non verbal will need to continue PT in rehab Discharge Exam - Head Exam Head Exam: ATRAUMATIC, NORMOCEPHALIC - Eye Exam Eye Exam: EOMI, PERRL Pupil Exam: NORMAL ACCOMODATION - ENT Exam ENT Exam: Mucous Membranes Dry, Normal Exam - Neck Exam Neck exam: Normal Inspection - Respiratory Exam Respiratory Exam: Clear to PA & Lateral, NORMAL BREATHING PATTERN. absent: Rales, Rhonchi, Wheezes - Cardiovascular Exam Cardiovascular Exam: REGULAR RHYTHM, RRR, +S1, +S2. absent: JVD - GI/Abdominal Exam GI & Abdominal Exam: Normal Bowel Sounds, Soft. absent: Guarding, Rebound, Tenderness Additional comments: peg in place - Rectal Exam Rectal Exam: Deferred - Extremities Exam Extremities exam: pedal pulses present Additional comments: swelling to LLE - Neurological Exam Neurological exam: Alert, CN II-XII Intact Additional comments: non verbal left side weakness and neglect - Psychiatric Exam Psychiatric exam: Flat Affect - Skin Skin Exam: Dry, Intact, Normal Color, Warm Discharge Plan - Follow Up Plan Condition: STABLE Disposition: TRANSF TO SNF Patient education suggested?: Yes Instructions: Deep Vein Thrombosis (Blood Clots in the Legs), Hyperkalemia (DC) , Preventing Falls Additional Instructions: Discharge patient to [place], [place], for continued care.
[2017-12-18 07:44] VITALS: TEMP 98.4
[2017-12-18] MEDS: Cefepime 1 GM in Sodium Chloride 0.9% 100 ML IVPB SCH (08:40)
--- NOTE | 2017-12-18 11:22 | CP.PCM.CON ---
History of Present Illness - History of Present Illness History of Present Illness: 52 yr old male with a long standing history of DVT, not on coumadin, and prior strokes that were most likely in the left mca distribution, resulting in aphasia, is seen today for a neurological evaluation. started to have increasing leg swelling and was brought in by his , and admitted to the ICU. He is now stable with no neurological deficits. There was no seizure, no weakness, no headache, no new symptoms in addition to his baseline stroke symptoms. ROS: unable to obtain as patient is awake and nonverbal. ROS obtained from his . PMH/PSH: as above. FH/SH: . 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 PERRL. CN 2-12 normal. PLegic, increased swelling in left leg. +2 dtr ul and ll bl. Toes downgoing. No clonus. Gait not tested. left sided weaness. Past Patient History - Infectious Disease Hx of Infectious Diseases: None - Past Medical History & Family History Past Medical History?: Yes Past Family History: Reviewed and not pertinent - Past Social History Smoking Status: Never Smoked Alcohol: None Drugs: Denies Home Situation {Lives}: Snf - CARDIAC Hx Cardiac Disorders: Yes - PULMONARY Hx Respiratory Disorders: No - NEUROLOGICAL Hx Neurological Disorder: Yes HX Cerebrovascular Accident: Yes (x 4 times) - HEENT Other/Comment: Double/Triple vision when looking to the right. Blurry vision and pain. oculomotor nerve palsy - RENAL Hx Chronic Kidney Disease: No - ENDOCRINE/METABOLIC Hx Diabetes Insipidus: Yes Hx Diabetes Mellitus Type 2: Yes - HEMATOLOGICAL/ONCOLOGICAL Hx Blood Disorders: No Hx AIDS: No Hx Blood Transfusions: Yes Hx Blood Transfusion Reaction: No Hx Human Immunodeficiency Virus (HIV): No Other/Comment: pt is Jehovahs witness - INTEGUMENTARY Hx Dermatological Problems: No - MUSCULOSKELETAL/RHEUMATOLOGICAL Hx Falls: No - GASTROINTESTINAL Hx Constipation: Yes (Started 2 yrs ago) - GENITOURINARY/GYNECOLOGICAL Hx Genitourinary Disorders: Yes - PSYCHIATRIC Hx Substance Use: No - SURGICAL HISTORY Hx Arthroscopy: Yes (Bilateral Knee Twice ([id number])) Other/Comment: Cerebral intraventricular surgery (stroke). Abdominal IVC filter. - ANESTHESIA Hx Anesthesia: Yes Hx Anesthesia Reactions: No Hx Malignant Hyperthermia: No Meds Allergies/Adverse Reactions: Allergies Allergy/AdvReac Type Severity Reaction Status Date / Time No Known Allergies Allergy Verified 01/30/16 18:07 - Medications Medications: Current Medications Acetaminophen (Tylenol 325mg Tab) 650 mg PEG Q4 PRN PRN Reason: Temp >100 Acetaminophen (Tylenol 325mg Tab) 650 mg PEG Q4 PRN PRN Reason: Pain, Mild (1-3) Last Admin: 12/17/17 05:41 Dose: 650 mg Clotrimazole (Lotrimin 1% Cream) 1 applic TOP BID [facility] Last Admin: 12/18/17 08:23 Dose: 1 applic Famotidine (Pepcid) 20 mg PEG HS [facility] Last Admin: 12/17/17 22:22 Dose: 20 mg Cefepime HCl 1 gm/ Sodium (Chloride) 100 mls @ 100 mls/hr IVPB Q12 [facility] Last Admin: 12/18/17 08:40 Dose: 100 mls/hr Sodium Chloride (Sodium Chloride 0.9%) 1,000 mls @ 75 mls/hr IV .[id number] [facility] Stop: 12/18/17 11:49 Last Admin: 12/18/17 02:51 Dose: 75 mls/hr Insulin Human Lispro (Humalog) 0 units SC ACCU-CHECK [facility] PRN Reason: Protocol Last Admin: 12/18/17 06:37 Dose: Not Given Ondansetron HCl (Zofran Tab) 4 mg PEG Q8 PRN PRN Reason: Nausea/Vomiting Pantoprazole Sodium (Protonix Inj) 40 mg IVP DAILY [facility] Last Admin: 12/18/17 08:18 Dose: 40 mg Results - Vital Signs Recent Vital Signs: Last Vital Signs Temp 98.4 F 12/18/17 07:44 Pulse 105 H 12/18/17 08:46 Resp 24 12/18/17 08:46 BP 121/77 12/18/17 08:46 Pulse Ox 98 12/18/17 08:46 - Labs Result Diagrams: 12/18/17 05:30 12/18/17 05:30 Labs: Laboratory Results - last 24 hr 12/16/17 12/17/17 12/17/17 20:30 11:09 16:42 WBC RBC Hgb Hct MCV MCH MCHC RDW Plt Count Sodium Potassium Chloride Carbon Dioxide Anion Gap BUN Creatinine Est GFR ( Amer) Est GFR (Non-Af Amer) POC Glucose (mg/dL) 112 H 110 Random Glucose Calcium Procalcitonin 0.19 12/17/17 12/18/17 12/18/17 23:09 05:30 05:30 WBC 13.3 H RBC 3.63 L Hgb 10.2 L Hct 30.8 L MCV 85.0 MCH 28.1 MCHC 33.1 RDW 15.1 H Plt Count 279 Sodium 139 Potassium 4.7 Chloride 106 Carbon Dioxide 24 Anion Gap 14 BUN 47 H Creatinine 0.9 Est GFR ( Amer) > 60 Est GFR (Non-Af Amer) > 60 POC Glucose (mg/dL) 109 Random Glucose 114 H Calcium 9.3 Procalcitonin 12/18/17 05:30 WBC RBC Hgb Hct MCV MCH MCHC RDW Plt Count Sodium Potassium Chloride Carbon Dioxide Anion Gap BUN Creatinine Est GFR ( Amer) Est GFR (Non-Af Amer) POC Glucose (mg/dL) 98 Random Glucose Calcium Procalcitonin Assessment & Plan - Assessment and Plan (Free Text) Assessment: 52 yr old male who is here for dvt treatment with neurology consult placed for possible stroke. Mr Arthur does not appear to have a new stroke per history and exam, however, he is hypercoagulable for unknown reason. I would recommend referring him to hematology for hypercoagulable workup on outpatient basis, and follow with cardiology. Thank you please reconsult prn. DR north
[2017-12-18 12:43] VITALS: BP 136/89; PULSE 101; RESP 25
[2017-12-19 10:45] VITALS: O2SAT 97
== END 2017-12-18 12:51 | DRG 300 ==
LOC: H.ER 15:35 → H.ERHOLD 19:34 → H.ICU/CCU 21:17
PROVIDERS: ADMIT Internal Medicine; ATTEND Internal Medicine
DX: I82.413 Acute embolism and thrombosis of femoral vein, bilateral (principal); T83.518A Infection and inflammatory reaction due to other urinary catheter, initial encounter; N17.9 Acute kidney failure, unspecified; N39.0 Urinary tract infection, site not specified; E23.2 Diabetes insipidus; I82.403 Acute embolism and thrombosis of unspecified deep veins of lower extremity, bilateral; H49.00 Third [oculomotor] nerve palsy, unspecified eye; I10 Essential (primary) hypertension; I34.1 Nonrheumatic mitral (valve) prolapse; Y84.9 Medical procedure, unspecified as the cause of abnormal reaction of the patient, or of later complication, without mention of misadventure at the time of the procedure; Y92.9 Unspecified place or not applicable; Z79.4 Long term (current) use of insulin; Z86.73 Personal history of transient ischemic attack (TIA), and cerebral infarction without residual deficits; Z93.1 Gastrostomy status; K59.00 Constipation, unspecified; Y84.6 Urinary catheterization as the cause of abnormal reaction of the patient, or of later complication, without mention of misadventure at the time of the procedure; Z79.84 Long term (current) use of oral hypoglycemic drugs; I95.9 Hypotension, unspecified; R00.0 Tachycardia, unspecified; D64.9 Anemia, unspecified; E11.9 Type 2 diabetes mellitus without complications; E86.0 Dehydration; E86.1 Hypovolemia

== ENCOUNTER 2018-01-17 20:59 | Inpatient (IN) | payer BC, MEDICARE ==
[2018-01-17 22:02] LABS: HEMOGLOBIN 11.2 g/dL (12.0-18.0); MEAN CELL VOLUME 83.3 fl (80.0-94.0); MEAN CORPUSCULAR HEMOGLOBIN 28.1 pg (27.0-31.0); MEAN CORPUSCULAR HGB CONC 33.7 g/dL (33.0-37.0); RED CELL DISTRIBUTION WIDTH 15.2 % (11.5-14.5); WHITE BLOOD COUNT 7.8 K/uL (4.8-10.8)
--- NOTE | 2018-01-17 22:19 | ED PDOC ---
HPI: Chest Pain Time Seen by Provider: 01/17/18 21:21 Chief Complaint (Nursing): Chest Pain Chief Complaint (Provider): Chest Pain History Per: Family () History/Exam Limitations: physical impairment Onset/Duration Of Symptoms: Days Current Symptoms Are (Timing): Still Present Additional Complaint(s): 52 y/o male with a PMHx of CVA, hypercholesterolemia, HTN, DM and renal insufficiency presenting with chest pain, occurring for the past month. Patient initially thought to be due to subluxation of the shoulder. Pain has been occurring now with increase frequency according to the . All history was obtained from the as patient is non-verbal. PMD: Dr. Beth Past Medical History Reviewed: Historical Data, Nursing Documentation, Vital Signs Vital Signs: Last Vital Signs Temp 98.4 F 01/17/18 21:03 Pulse 72 01/17/18 21:03 Resp 18 01/17/18 21:03 BP 134/82 01/17/18 21:03 Pulse Ox 96 01/17/18 22:24 - Medical History PMH: Fractures, HTN (uncontrolled), Hypercholesterolemia (Renal Insufficiency), Hyperlipidemia (mild), Mitral Valve Prolapse, Pneumonia (3 months ago), TIA Denies: HIV, Chronic Kidney Disease - Family History Family History: States: Unknown Family Hx - Home Medications Home Medications: Ambulatory Orders Medication Instructions Recorded Atorvastatin [Lipitor] 40 mg PEG HS 01/30/16 amLODIPine [Norvasc] 10 mg PEG DAILY 01/30/16 Acetaminophen [Tylenol 325mg tab] 650 mg PEG Q4 PRN 12/16/17 Acetaminophen [Tylenol 325mg tab] 650 mg PEG Q4 PRN 12/16/17 Cefepime [Maxipime] 1 gm IV Q12 12/16/17 Clotrimazole/Betamethasone 1 appl TOP BID 12/16/17 [Lotrisone] Desmopressin [Ddavp] 0.1 mg PEG BID 12/16/17 Famotidine [Pepcid] 20 mg PEG HS 12/16/17 Glimepiride [amaRYL] 2 mg PEG DAILY 12/16/17 Insulin Regular [HumuLIN R] 2 - 12 unit SC Q6 12/16/17 Labetalol [Trandate] 200 mg PEG Q12 12/16/17 Losartan [Cozaar] 100 mg PEG DAILY 12/16/17 Ondansetron [Zofran Tab] 4 mg PEG Q8 PRN 12/16/17 Silver Sulfadiazine 1% [Silvadene 1 appl TOP BID 12/16/17 1%] - Allergies Allergies/Adverse Reactions: Allergies Allergy/AdvReac Type Severity Reaction Status Date / Time No Known Allergies Allergy Verified 01/17/18 21:03 Review of Systems ROS Statement: Except As Marked, All Systems Reviewed And Found Negative Cardiovascular: Positive for: Chest Pain Physical Exam - Reviewed Nursing Documentation Reviewed: Yes Vital Signs Reviewed: Yes - Physical Exam Appears: Positive for: Well. Negative for: Uncomfortable (Comfortable) Head Exam: Positive for: ATRAUMATIC Skin: Positive for: Normal Color, Warm, Dry Eye Exam: Positive for: Normal appearance, EOMI, PERRL ENT: Positive for: Normal ENT Inspection Neck: Positive for: Normal, Painless ROM Cardiovascular/Chest: Positive for: Regular Rate, Rhythm, Chest Non Tender Respiratory: Positive for: Normal Breath Sounds. Negative for: Respiratory Distress Gastrointestinal/Abdominal: Positive for: Normal Exam, Soft. Negative for: Tenderness Back: Positive for: Normal Inspection. Negative for: L CVA Tenderness, R CVA Tenderness Extremity: Positive for: Normal ROM. Negative for: Pedal Edema, Deformity Neurologic/Psych: Positive for: Alert. Negative for: Oriented (patient is non- verbal) - Laboratory Results Result Diagrams: 01/17/18 21:57 01/17/18 21:57 - ECG O2 Sat by Pulse Oximetry: 96 (RA) Pulse Ox Interpretation: Normal Medical Decision Making Medical Decision Making: Time: 2156 A/P: 52 y/o male with a PMHx of hypercholesterolemia, HTN, DM, renal insufficiency and DM. -- Patient has significant cardiac comorbidities. -- Will require in patient management. -- Continuous cardiac monitoring. -- Serial Troponins and further workup as warranted. -- Case discussed with Dr. Beth who agrees with plan. -- BMP -- Troponin -- CBC -- PTT -- Prothrombin Time -- CXR Portable -- Admit to Hospital Scribe Attestation: Documented by Connie Lin acting as a scribe for Bryon Licea MD. Provider Scribe Attestation: All medical record entries made by the Scribe were at my direction and personally dictated by me. I have reviewed the chart and agree that the record accurately reflects my personal performance of the history, physical exam, medical decision making, and the department course for this patient. I have also personally directed, reviewed, and agree with the discharge instructions and disposition. Disposition - Clinical Impression Clinical Impression: Chest pain - Patient ED Disposition Is Patient to be Admitted: No - Disposition Disposition Time: 21:57 Condition: FAIR
[2018-01-17 22:29] LABS: BLOOD UREA NITROGEN 16 mg/dl (9-20); CALCIUM 9.1 mg/dL (8.4-10.2); GFR NON-AFRICAN AMERICAN > 60
[2018-01-17 22:31] LABS: INR 1.1; PROTHROMBIN TIME 11.7 Seconds (9.8-13.1)
[2018-01-17 22:34] LABS: PARTIAL THROMBOPLASTIN TIME 33.8 Seconds (25.6-37.1)
[2018-01-18] MEDS ORDERED: Glucagon Recombinant 1 mg Inj IM PRN ×2 (01:51→03:38)
[2018-01-18] MEDS ORDERED: Alum-Mag Hydrox-Simethicone Susp (30 mL) PEG SCH (01:51)
[2018-01-18] MEDS ORDERED: Albuterol-Ipratrop 3 mg / 0.5 (3 ml) UD INH PRN (01:51)
[2018-01-18] MEDS ORDERED: Magnesium Hydroxide Susp 30 ml UD PEG PRN ×2 (01:57→03:23)
[2018-01-18] MEDS ORDERED: Zinc Oxide 5 APPL/28 GM OINT TP SCH (02:00)
[2018-01-18] MEDS ORDERED: Alum-Mag Hydrox-Simethicone Susp (30 mL) PEG PRN (03:20)
[2018-01-18] MEDS ORDERED: Influenza Vaccine (5 YR UP)/PF 60 MCG/0.5 ML SYR IM ONE (06:00)
[2018-01-18] MEDS: Insulin Regular 100 units/ml SC SCH ×4 (06:40→22:16)
--- NOTE | 2018-01-18 07:56 | CARD ---
APPROVED REPORT Date of service: 01/18/2018 EKG Measurement Heart [id number] <Conclusion> Sinus rhythm with 1st degree AV block T wave abnormality, consider lateral ischemia Abnormal ECG
[2018-01-18] MEDS: Ferrous Sulfate 220 MG/5 ML PO SCH (08:26)
[2018-01-18] MEDS: Silver Sulfadiazine 1% Cream (20 gm) TOP SCH ×2 (08:27→23:18)
[2018-01-18] MEDS: Betamethasone Dip 0.05% Cream(15 gm) TOP SCH ×2 (08:29→17:11)
[2018-01-18] MEDS: Enoxaparin 40 mg Syringe SC SCH (08:30)
[2018-01-18] MEDS ORDERED: CALCIUM ALGINATE TOP SCH (09:00)
[2018-01-18] MEDS ORDERED: Patient's Own Med (Amino Acids/Protein Hydrolys [Prostat 15 G Packet] 30 ml) PEG SCH (09:00)
[2018-01-18] MEDS ORDERED: Lidocaine 5% Patch TD SCH ×2 (09:00)
[2018-01-18] MEDS ORDERED: Silver Sulfadiazine 1% Cream (20 gm) TOP SCH (09:00)
[2018-01-18] MEDS ORDERED: Enoxaparin 30 mg Syringe SC SCH (09:00)
--- NOTE | 2018-01-18 09:53 | CP.PCM.CON ---
History of Present Illness - History of Present Illness History of Present Illness: I WAS ASKED TO SEE THIS PATIENT BY DR SABILLON FOR CHEST PAIN. HE IS A 52 YEAR OLD MALE WITH A HISTORY OF AN ICH IN SEPTEMBER OF 2017 WITH LEFT SIDED HEMIPARESIS, LLE DVT IN November, HYPERTENSION, RF A CHILD, MVP ON ECHOCARDIOGRAM, TYPE 2 DM AND HE HAD ROVERTO IN NOVEMBER OF 2017 FROM DEHYDRATION THAT IMPROVE WITH HYDRATION. HE HAS BEEN POINTING TO HIS LEFT CHEST AND LEFT SHOULDER AND ARM FOR SEVERAL WEEKS NOW AND IT WAS DECIDED TO ADMIT HIM NOW FOR CARDIAC TESTING. HE ISN'T ABLE TO SPEAK WELL AND THE HISTORY WAS OBTAINED FROM HIS AND REVIEWING THE CHART. Past Patient History - Infectious Disease Hx of Infectious Diseases: None - Past Medical History & Family History Past Medical History?: Yes - Past Social History Smoking Status: Former Smoker - CARDIAC Hx Cardiac Disorders: Yes Hx Hypercholesterolemia: Yes (Renal Insufficiency) Hx Hypertension: Yes (uncontrolled) Hx Mitral Valve Prolapse: Yes - PULMONARY Hx Respiratory Disorders: Yes Hx Pneumonia: Yes (3 months ago) - NEUROLOGICAL Hx Neurological Disorder: Yes HX Cerebrovascular Accident: Yes Hx Transient Ischemic Attacks (TIA): Yes - HEENT Hx HEENT Problems: Yes Other/Comment: Double/Triple vision when looking to the right. Blurry vision and pain. oculomotor nerve palsy - RENAL Hx Chronic Kidney Disease: No - ENDOCRINE/METABOLIC Hx Endocrine Disorders: Yes Hx Diabetes Insipidus: Yes Hx Diabetes Mellitus Type 2: Yes - HEMATOLOGICAL/ONCOLOGICAL Hx Blood Disorders: No Hx Human Immunodeficiency Virus (HIV): No - INTEGUMENTARY Hx Dermatological Problems: Yes (pressure ulcer on right buttock) - MUSCULOSKELETAL/RHEUMATOLOGICAL Hx Musculoskeletal Disorders: Yes Hx Falls: Yes Hx Fractures: Yes - GASTROINTESTINAL Hx Gastrointestinal Disorders: Yes (Gtube) Hx Constipation: Yes (Started 2 yrs ago) - GENITOURINARY/GYNECOLOGICAL Hx Genitourinary Disorders: Yes Hx Incontinence: Yes - PSYCHIATRIC Hx Psychophysiologic Disorder: No Hx Substance Use: No - SURGICAL HISTORY Hx Surgeries: Yes Hx Arthroscopy: Yes (Bilateral Knee Twice ([id number])) Other/Comment: Cerebral intraventricular surgery (stroke). Abdominal IVC filter. - ANESTHESIA Hx Anesthesia: Yes Hx Anesthesia Reactions: No Hx Malignant Hyperthermia: No Meds Allergies/Adverse Reactions: Allergies Allergy/AdvReac Type Severity Reaction Status Date / Time No Known Allergies Allergy Verified 01/17/18 21:03 - Medications Medications: Current Medications Acetaminophen (Tylenol 325mg Tab) 650 mg PEG Q4 PRN PRN Reason: Temp >100 Acetaminophen (Tylenol 325mg Tab) 650 mg PEG Q4 PRN PRN Reason: Pain, Mild (1-3) Al Hydrox/Mg Hydrox/Simethicone (Maalox Plus 30 Ml) 30 ml PEG Q4 PRN PRN Reason: Heartburn Albuterol/Ipratropium (Duoneb 3 Mg/0.5 Mg (3 Ml) Ud) 3 ml INH RTID PRN PRN Reason: Shortness of Breath Amlodipine Besylate (Norvasc) 10 mg PEG DAILY [facility] Last Admin: 01/18/18 08:26 Dose: 10 mg Atorvastatin Calcium (Lipitor) 40 mg PEG HS [facility] Betamethasone Dipropion Augmented (Diprolene Af) 1 gm TOP BID [facility] Last Admin: 01/18/18 08:29 Dose: 1 applic Clotrimazole (Lotrimin 1% Cream) 1 applic TOP BID [facility] Last Admin: 01/18/18 08:28 Dose: 1 applic Enoxaparin Sodium (Lovenox) 40 mg SC DAILY [facility]; Protocol Last Admin: 01/18/18 08:30 Dose: 40 mg Famotidine (Pepcid) 20 mg PEG HS [facility] Ferrous Sulfate (Ferrous Sulfate) 308 mg PO DAILY [facility] Last Admin: 01/18/18 08:26 Dose: 308 mg Glucagon (Glucagen Diagnostic Kit) 1 mg IM PRN PRN PRN Reason: Hypoglycemia Insulin Human Regular (Humulin R) 0 units SC ACCU-CHECK [facility]; Protocol Last Admin: 01/18/18 06:40 Dose: Not Given Labetalol HCl (Trandate) 200 mg PEG Q12 [facility] Last Admin: 01/18/18 08:26 Dose: 200 mg Lidocaine (Lidoderm) 1 ea TD DAILY [facility] Losartan Potassium (Cozaar) 100 mg PEG DAILY [facility] Last Admin: 01/18/18 08:26 Dose: 100 mg Magnesium Hydroxide (Milk Of Magnesia) 30 ml PEG DAILY PRN PRN Reason: Constipation Nystatin (Nystop Topical Powder) 1 applic TOP Q12 [facility] Last Admin: 01/18/18 08:27 Dose: 1 applic Ondansetron HCl (Zofran Tab) 4 mg PEG Q8 PRN PRN Reason: Nausea/Vomiting Petrolatum (Boudreauxs) 1 appl TP Q12 [facility] Silver Sulfadiazine (Silvadene 1% 20 Gm) 1 ea TOP Q12 [facility] Last Admin: 01/18/18 08:27 Dose: 1 applic Physical Exam - Respiratory Exam Respiratory Exam: Clear to Auscultation Bilateral - Cardiovascular Exam Cardiovascular Exam: REGULAR RHYTHM, +S1, +S2 - Extremities Exam Additional comments: NO LE EDEMA - Additional Findings Additional findings: EKG NSR TROPONINS NEGATIVE Results - Vital Signs Recent Vital Signs: Last Vital Signs Temp 97.5 F L 01/18/18 08:22 Pulse 80 01/18/18 08:26 Resp 20 01/18/18 08:22 BP 159/96 H 01/18/18 08:26 Pulse Ox 99 01/18/18 08:22 - Labs Result Diagrams: 01/17/18 21:57 01/17/18 21:57 Labs: Laboratory Results - last 24 hr 01/17/18 01/17/18 01/17/18 21:57 21:57 21:57 WBC 7.8 RBC 4.00 L Hgb 11.2 L Hct 33.3 L MCV 83.3 MCH 28.1 MCHC 33.7 RDW 15.2 H Plt Count 396 D PT 11.7 INR 1.1 APTT 33.8 Sodium 140 Potassium 3.6 Chloride 104 Carbon Dioxide 31 H Anion Gap 9 L BUN 16 Creatinine 0.4 L Est GFR ( Amer) > 60 Est GFR (Non-Af Amer) > 60 POC Glucose (mg/dL) Random Glucose 118 H Calcium 9.1 Troponin I < 0.0120 01/18/18 01/18/18 01/18/18 05:37 07:30 07:46 WBC RBC Hgb Hct MCV MCH MCHC RDW Plt Count PT INR APTT Sodium Potassium Chloride Carbon Dioxide Anion Gap BUN Creatinine Est GFR ( Amer) Est GFR (Non-Af Amer) POC Glucose (mg/dL) 88 85 Random Glucose Calcium Troponin I < 0.0120 Assessment & Plan - Assessment and Plan (Free Text) Assessment: LEFT CHEST AND LUE DISCOMFORT. CARDIAC? NEUROLOGICAL? ICH SEPTEMBER 2017 HYPERTENSION DM HYPERLIPIDEMIA Plan: THE PATIENT WAS ADMITTED TO ON TELEMETRY SERIAL EKGS AND TROPONINS ECHOCARDIOGRAM PHARMACOLOGICAL STRESS TEST CONTINUE LOSARTAN, AMLODIPINE, LABETOLOL AND ATORVASTATIN i SPOKE TO THE WHO WANTS TO PROCEED WITH THE PHARMACOLOGICAL STRESS TEST
--- NOTE | 2018-01-18 10:09 | RAD ---
Date of service: 01/17/2018 HISTORY: chest pain COMPARISON: Portable chest 12/16/2017. FINDINGS: LUNGS: No active pulmonary disease. PLEURA: No significant pleural effusion identified, no pneumothorax apparent. CARDIOVASCULAR: Stable cardiomediastinal silhouette. No pulmonary vascular congestion. OSSEOUS STRUCTURES: No significant abnormalities. VISUALIZED UPPER ABDOMEN: Normal. OTHER FINDINGS: None. IMPRESSION: No interval acute cardiopulmonary disease appreciated.
[2018-01-18] MEDS: Zinc Oxide 5 APPL/28 GM OINT TP SCH ×2 (11:58→22:15)
--- NOTE | 2018-01-18 15:48 | CARD ---
APPROVED REPORT Date of service: 01/18/2018 EXAM: Two-dimensional and M-mode echocardiogram with Doppler and color Doppler. Other Information Quality : GoodRhythm : NSR INDICATION Chest Pain 2D DIMENSIONS IVSd1.70 (0.7-1.1cm)LVDd4.40 (3.9-5.9cm) LVOT Diameter2.37 (1.8-2.4cm)PWd1.69 (0.7-1.1cm) IVSs2.08 (0.8-1.2cm)LVDs3.26 (2.5-4.0cm) FS (%) 20.7 %PWs2.37 (0.8-1.2cm) M-Mode DIMENSIONS Left Atrium (MM)5.00 (2.5-4.0cm)IVSd1.70 (0.7-1.1cm) Aortic Root3.71 (2.2-3.7cm)LVDd5.15 (4.0-5.6cm) Aortic Cusp Exc.1.85 (1.5-2.0cm)PWd1.41 (0.7-1.1cm) IVSs2.12 cmFS (%) 35 % LVDs3.35 (2.0-3.8cm)PWs2.32 cm Aortic Valve AoV Peak Acedsjsf461.9cm/sAoV VTI39.0cmAO Peak GR.18mmHg LVOT Peak Sveqmvor84.8cm/sLVOT VTI18.58cmAO Mean GR.11mmHg AI P 1/2 Qzos612lz Mitral Valve MV E Ryfzvigj014.9cm/sMV DECEL [id number] A Oicszvcm31.5cm/s MV TTP38eeR/A ratio1.1MVA (PHT)2.56cm2 TDI Lateral E' Peak V7.17cm/sMedial E' Peak V6.03cm/sE/Lateral E'14.8 E/Medial E'17.6 Pulmonary Valve PV Peak Wdyionpg995.0cm/s LEFT VENTRICLE The left ventricle is normal size. There is moderate concentric left ventricular hypertrophy. The left ventricular systolic function is normal. The estimated ejection fraction is 60% Mild dynamic LV gradient No regional wall motion abnormalities noted.. Transmitral Doppler flow pattern is Grade I-abnormal relaxation pattern. No left ventricle thrombus noted on this study. There is no ventricular septal defect visualized. There is no mass noted in the left ventricle. RIGHT VENTRICLE The right ventricle is normal size. There is normal right ventricular wall thickness. The right ventricular systolic function is normal. ATRIA The left atrium size is moderately dilated The right atrium size is normal. AORTIC VALVE The aortic valve is normal in structure. Mild aortic regurgitation is present. There is no aortic valvular stenosis. MITRAL VALVE The mitral valve is normal in structure. There is no mitral valve stenosis. There is a moderate, lateral wall hugging jet of mitral valve regurgitation noted. TRICUSPID VALVE The tricuspid valve is normal in structure. There is no tricuspid valve regurgitation noted. PULMONIC VALVE The pulmonary valve is normal in structure. There is no pulmonic valvular regurgitation. GREAT VESSELS The aortic root is milldy dilated The ascending aorta is normal in size. The pulmonary artery is normal. The IVC is normal in size and collapses >50% with inspiration. PERICARDIAL EFFUSION There is no pericardial effusion. <Conclusion> Dilated aortic root with mild insufficiency Moderate mitral insufficiency Dilated left atrium Moderate LVH Normal LV systolic function with mild dynamic gradient and doppler hemodynamics consistent with abnormal relaxation The estimated ejection fraction is 60%
[2018-01-18] MEDS: Famotidine 40 MG/5 ML PEG SCH (23:18)
[2018-01-19] MEDS: Insulin Regular 100 units/ml SC SCH ×4 (08:58→22:48)
[2018-01-19] MEDS: Zinc Oxide 5 APPL/28 GM OINT TP SCH ×2 (09:04→21:20)
[2018-01-19] MEDS: Betamethasone Dip 0.05% Cream(15 gm) TOP SCH ×2 (09:06→16:42)
[2018-01-19] MEDS: Lidocaine 5% Patch TD SCH (09:07)
[2018-01-19] MEDS: Ferrous Sulfate 220 MG/5 ML PO SCH (09:07)
[2018-01-19] MEDS: Enoxaparin 40 mg Syringe SC SCH (09:09)
[2018-01-19] MEDS: Silver Sulfadiazine 1% Cream (20 gm) TOP SCH ×2 (09:10→21:19)
--- NOTE | 2018-01-19 10:33 | CP.PCM.PN ---
Subjective - Date & Time of Evaluation Date of Evaluation: 01/19/18 Time of Evaluation: 09:30 - Subjective Subjective: UNABLE TO COMMUNICATE WITH PATIENT Objective - Vital Signs/Intake and Output Vital Signs (last 24 hours): Temp Pulse Resp BP Pulse Ox 97.7 F 86 20 174/97 H 100 01/19/18 08:00 01/19/18 09:26 01/19/18 08:00 01/19/18 09:26 01/19/18 08:00 - Medications Medications: Current Medications Acetaminophen (Tylenol 325mg Tab) 650 mg PEG Q4 PRN PRN Reason: Temp >100 Acetaminophen (Tylenol 325mg Tab) 650 mg PEG Q4 PRN PRN Reason: Pain, Mild (1-3) Al Hydrox/Mg Hydrox/Simethicone (Maalox Plus 30 Ml) 30 ml PEG Q4 PRN PRN Reason: Heartburn Albuterol/Ipratropium (Duoneb 3 Mg/0.5 Mg (3 Ml) Ud) 3 ml INH RTID PRN PRN Reason: Shortness of Breath Amlodipine Besylate (Norvasc) 10 mg PEG DAILY [facility] Last Admin: 01/19/18 09:26 Dose: 10 mg Atorvastatin Calcium (Lipitor) 40 mg PEG HS [facility] Last Admin: 01/18/18 22:16 Dose: 40 mg Betamethasone Dipropion Augmented (Diprolene Af) 1 gm TOP BID [facility] Last Admin: 01/19/18 09:06 Dose: 1 applic Clotrimazole (Lotrimin 1% Cream) 1 applic TOP BID [facility] Last Admin: 01/18/18 17:11 Dose: 1 applic Enoxaparin Sodium (Lovenox) 40 mg SC DAILY [facility]; Protocol Last Admin: 01/19/18 09:09 Dose: 40 mg Famotidine (Pepcid) 20 mg PEG HS [facility] Last Admin: 01/18/18 23:18 Dose: 20 mg Ferrous Sulfate (Ferrous Sulfate) 308 mg PO DAILY [facility] Last Admin: 01/19/18 09:07 Dose: 308 mg Glucagon (Glucagen Diagnostic Kit) 1 mg IM PRN PRN PRN Reason: Hypoglycemia Dextrose (Dextrose 5% In Water 1000 Ml) 1,000 mls @ 75 mls/hr IV .[id number] [facility] Stop: 01/20/18 08:19 Last Admin: 01/19/18 09:03 Dose: 75 mls/hr Insulin Human Regular (Humulin R) 0 units SC ACCU-CHECK [facility]; Protocol Last Admin: 01/19/18 08:58 Dose: Not Given Labetalol HCl (Trandate) 200 mg PEG Q12 [facility] Last Admin: 01/19/18 09:10 Dose: 200 mg Lidocaine (Lidoderm) 1 ea TD DAILY [facility] Last Admin: 01/19/18 09:07 Dose: 1 ea Losartan Potassium (Cozaar) 100 mg PEG DAILY [facility] Last Admin: 01/19/18 09:05 Dose: 100 mg Magnesium Hydroxide (Milk Of Magnesia) 30 ml PEG DAILY PRN PRN Reason: Constipation Nystatin (Nystop Topical Powder) 1 applic TOP Q12 [facility] Last Admin: 01/19/18 09:11 Dose: 1 applic Ondansetron HCl (Zofran Tab) 4 mg PEG Q8 PRN PRN Reason: Nausea/Vomiting Petrolatum (Boudreauxs) 1 appl TP Q12 [facility] Last Admin: 01/19/18 09:04 Dose: 1 appl Silver Sulfadiazine (Silvadene 1% 20 Gm) 1 ea TOP Q12 [facility] Last Admin: 01/19/18 09:10 Dose: 1 applic - Labs Labs: 01/17/18 21:57 01/17/18 21:57 PT 11.7 Seconds (9.8-13.1) 01/17/18 21:57 INR 1.1 01/17/18 21:57 APTT 33.8 Seconds (25.6-37.1) 01/17/18 21:57 - Respiratory Exam Respiratory Exam: Clear to Ausculation Bilateral - Cardiovascular Exam Cardiovascular Exam: REGULAR RHYTHM, +S1, +S2 - Extremities Exam Extremities Exam: Normal Inspection - Additional Findings Additional findings: EKG NSR TROPONINS NORMAL ECHOCARDIOGRAM REVIEWED BY ME AND THE MV DOES NOT FIT STRICT CRITERIA FOR PROLAPSE THE DID NOT WANT TO SIGN FOR CONSENT FOR THE PHARMACOLOGICAL STRESS TEST TODAY. SHE WANTS TO THINK IT OVER ONE MORE DAY. Assessment and Plan - Assessment and Plan (Free Text) Assessment: CHEST AND LEFT SHOULDER DISCOMFORT HYPERTENSION CEREBRAL HEMMORHAGE SEPTEMBER 2017 Plan: CONTINUE AMLODIPINE, LOSARTAN, ATORVASTATIN, LOVENOX I SPOKE TO THE AGAIN TODAY AND DISCUSSED THE BENEFITS AND RISKS OF A PHARMACOLOGICAL STRESS TEST AND SHE WILL DECIDE BY TOMORROW MORNING IF SHE WANT TO PROCEED WITH IT
[2018-01-19] MEDS ORDERED: Gadodiamide 287 MG/ML VIAL (15ML) IV ONE (12:18)
--- NOTE | 2018-01-19 13:40 | CP.PCM.CON ---
History of Present Illness - History of Present Illness History of Present Illness: 52 yr old male who has a pmh of PMHx of CVA, hypercholesterolemia, HTN, DM and renal insufficiency presenting with chest pain, occurring for the past month. Patient initially thought to be due to subluxation of the shoulder. Pain has been occurring now with increase frequency according to the . All history was obtained from the as patient is non-verbal. Neurology consult is called for possible altered mental status. Past Patient History - Infectious Disease Hx of Infectious Diseases: None - Past Medical History & Family History Past Medical History?: Yes - Past Social History Smoking Status: Former Smoker - CARDIAC Hx Cardiac Disorders: Yes Hx Hypercholesterolemia: Yes (Renal Insufficiency) Hx Hypertension: Yes (uncontrolled) Hx Mitral Valve Prolapse: Yes - PULMONARY Hx Respiratory Disorders: Yes Hx Pneumonia: Yes (3 months ago) - NEUROLOGICAL Hx Neurological Disorder: Yes HX Cerebrovascular Accident: Yes Hx Transient Ischemic Attacks (TIA): Yes - HEENT Hx HEENT Problems: Yes Other/Comment: Double/Triple vision when looking to the right. Blurry vision and pain. oculomotor nerve palsy - RENAL Hx Chronic Kidney Disease: No - ENDOCRINE/METABOLIC Hx Endocrine Disorders: Yes Hx Diabetes Insipidus: Yes Hx Diabetes Mellitus Type 2: Yes - HEMATOLOGICAL/ONCOLOGICAL Hx Blood Disorders: No Hx Human Immunodeficiency Virus (HIV): No - INTEGUMENTARY Hx Dermatological Problems: Yes (pressure ulcer on right buttock) - MUSCULOSKELETAL/RHEUMATOLOGICAL Hx Musculoskeletal Disorders: Yes Hx Falls: Yes Hx Fractures: Yes - GASTROINTESTINAL Hx Gastrointestinal Disorders: Yes (Gtube) Hx Constipation: Yes (Started 2 yrs ago) - GENITOURINARY/GYNECOLOGICAL Hx Genitourinary Disorders: Yes Hx Incontinence: Yes - PSYCHIATRIC Hx Psychophysiologic Disorder: No Hx Substance Use: No - SURGICAL HISTORY Hx Surgeries: Yes Hx Arthroscopy: Yes (Bilateral Knee Twice ([id number])) Other/Comment: Cerebral intraventricular surgery (stroke). Abdominal IVC filter. - ANESTHESIA Hx Anesthesia: Yes Hx Anesthesia Reactions: No Hx Malignant Hyperthermia: No Meds Allergies/Adverse Reactions: Allergies Allergy/AdvReac Type Severity Reaction Status Date / Time No Known Allergies Allergy Verified 01/17/18 21:03 - Medications Medications: Current Medications Acetaminophen (Tylenol 325mg Tab) 650 mg PEG Q4 PRN PRN Reason: Temp >100 Acetaminophen (Tylenol 325mg Tab) 650 mg PEG Q4 PRN PRN Reason: Pain, Mild (1-3) Al Hydrox/Mg Hydrox/Simethicone (Maalox Plus 30 Ml) 30 ml PEG Q4 PRN PRN Reason: Heartburn Albuterol/Ipratropium (Duoneb 3 Mg/0.5 Mg (3 Ml) Ud) 3 ml INH RTID PRN PRN Reason: Shortness of Breath Amlodipine Besylate (Norvasc) 10 mg PEG DAILY [facility] Last Admin: 01/19/18 09:26 Dose: 10 mg Atorvastatin Calcium (Lipitor) 40 mg PEG HS [facility] Last Admin: 01/18/18 22:16 Dose: 40 mg Betamethasone Dipropion Augmented (Diprolene Af) 1 gm TOP BID [facility] Last Admin: 01/19/18 09:06 Dose: 1 applic Clotrimazole (Lotrimin 1%) 1 applic TOP BID [facility] Enoxaparin Sodium (Lovenox) 40 mg SC DAILY [facility]; Protocol Last Admin: 01/19/18 09:09 Dose: 40 mg Famotidine (Pepcid) 20 mg PEG HS [facility] Last Admin: 01/18/18 23:18 Dose: 20 mg Ferrous Sulfate (Ferrous Sulfate) 308 mg PO DAILY [facility] Last Admin: 01/19/18 09:07 Dose: 308 mg Glucagon (Glucagen Diagnostic Kit) 1 mg IM PRN PRN PRN Reason: Hypoglycemia Dextrose (Dextrose 5% In Water 1000 Ml) 1,000 mls @ 75 mls/hr IV .[id number] [facility] Stop: 01/20/18 08:19 Last Admin: 01/19/18 09:03 Dose: 75 mls/hr Insulin Human Regular (Humulin R) 0 units SC ACCU-CHECK [facility]; Protocol Last Admin: 01/19/18 13:03 Dose: Not Given Labetalol HCl (Trandate) 200 mg PEG Q12 [facility] Last Admin: 01/19/18 09:10 Dose: 200 mg Lidocaine (Lidoderm) 1 ea TD DAILY [facility] Last Admin: 01/19/18 09:07 Dose: 1 ea Losartan Potassium (Cozaar) 100 mg PEG DAILY [facility] Last Admin: 01/19/18 09:05 Dose: 100 mg Magnesium Hydroxide (Milk Of Magnesia) 30 ml PEG DAILY PRN PRN Reason: Constipation Nystatin (Nystop Topical Powder) 1 applic TOP Q12 [facility] Last Admin: 01/19/18 09:11 Dose: 1 applic Ondansetron HCl (Zofran Tab) 4 mg PEG Q8 PRN PRN Reason: Nausea/Vomiting Petrolatum (Boudreauxs) 1 appl TP Q12 [facility] Last Admin: 01/19/18 09:04 Dose: 1 appl Silver Sulfadiazine (Silvadene 1% 20 Gm) 1 ea TOP Q12 [facility] Last Admin: 01/19/18 09:10 Dose: 1 applic Results - Vital Signs Recent Vital Signs: Last Vital Signs Temp 98.0 F 01/19/18 13:06 Pulse 86 01/19/18 13:06 Resp 20 01/19/18 13:06 BP 151/90 H 01/19/18 13:06 Pulse Ox 97 01/19/18 13:06 - Labs Result Diagrams: 01/17/18 21:57 01/17/18 21:57 Labs: Laboratory Results - last 24 hr 01/18/18 01/18/18 01/19/18 16:02 21:34 05:40 POC Glucose (mg/dL) 109 87 84 01/19/18 11:24 POC Glucose (mg/dL) 146 H
[2018-01-19 13:48] VITALS: BMI 30.6
--- NOTE | 2018-01-19 15:31 | MRI ---
Date of service: 01/19/2018 PROCEDURE: MRI BRAIN WITH AND WITHOUT CONTRAST HISTORY: r/o cva COMPARISON: None available. TECHNIQUE: Multiplanar, multisequence MR images of the brain were obtained with and without intravenous contrast enhancement. FINDINGS: HEMORRHAGE: Hemosiderin is seen related to areas of encephalomalacia at the medial right frontal vertex as well as the right thalamus and minimally at bilateral basal ganglia. Trace hemosiderin lines the atrium and occipital horns of the bilateral lateral ventricles, right greater than left. Basal ganglia findings could reflect calcifications rather than hemosiderin. The right frontal and thalamic as well as lateral ventricle findings likely reflect postoperative change. Preceding prior intracranial hemorrhage is not excluded. No prior comparison or additional clinical information is available and further clinical correlation is advised. DWI: No MR evidence of an acute or subacute brain infarction. BRAIN PARENCHYMA: There is a questionable left frontal shunt tract entry into the appearing to terminate at the anterior left thalamus. In addition to encephalomalacia changes described above, there is diffuse cerebral atrophy and chronic microangiopathy with Wallerian degeneration identified at the right cerebral peduncle extending into the right gary and crossing through the left medulla. There is a small area of encephalomalacia at the left basal ganglia posteriorly, potentially a chronic lacune. There is no mass effect or suspicious extra-axial fluid collection appreciated. A 4.0 x 1.7 cm arachnoid cyst is seen at the middle cranial fossa anteriorly and there is a mildly prominent cisterna magna. ENHANCEMENT: No abnormal intracranial enhancement. VENTRICLES: Ex vacuo expansion of the right lateral ventricle is identified with proportional ventricular expansion related to diffuse cerebral atrophy. CRANIUM: Unremarkable. ORBITS: Grossly unremarkable. PARANASAL SINUSES/MASTOIDS: Extensive right mastoid effusions identified. Multifocal ethmoid sinusitis noted. VASCULAR SYSTEM: Skull base flow voids intact. OTHER FINDINGS: None . IMPRESSION: Abdominally postoperative cystic encephalomalacia seen at the right frontal vertex and the right thalamus with related hemosiderin felt to be on a chronic basis. Trace hemosiderin is seen in the posterior segments of the bilateral lateral ventricles which may also be postoperative. A left frontal ventricular shunt tract is felt to be present at the left frontal region extending to the left thalamus. It is not clear that a shunt is currently placed. No evidence of an acute separate brain infarction at this time. Follow-up CT is advised to exclude potential hyper acute or acute hemorrhage. Small area cystic encephalomalacia is appreciated at the left basal ganglia posteriorly potentially related to lacune though this may also be shunt related. Diffuse cerebral atrophy chronic microangiopathy are identified.
--- NOTE | 2018-01-19 19:12 | HP ---
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 The patient was in rehabilitation when he started to complain of chest pain. EKG was done and it showed non specific ST-T wave changes. The patient was transferred to the emergency room for evaluation and admitted for further management. The patient is aphasic and no history can be obtained from the patient. No history can be obtained for the review of systems. ALLERGIES: NO KNOWN ALLERGY. MEDICATIONS: Reviewed and ordered as per MAR. SOCIAL HISTORY: No history of smoking, EtOH or substance abuse. FAMILY HISTORY: Not contributory. 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 PHYSICAL EXAMINATION: GENERAL: The patient was not in any cardiopulmonary distress at the time of this examination. VITAL SIGNS: Blood pressure 115/95, temperature 97.8, respiratory rate 16 and pulse 75. HEENT: Pupils equal and reactive to light. Normal-appearing mucosa of the conjunctivae, oropharynx and nasal membrane mucosa. NECK: Supple. No JVD. No carotid bruit. No lymph node. No thyromegaly. CHEST AND LUNGS: Bilateral symmetrical expansion. Good air exchange. No rales. No rhonchi. CARDIOVASCULAR SYSTEM: PMI not localized. S1, S2. No additional sounds. ABDOMEN: Normoactive bowel sounds. No tenderness. No organomegaly. No masses. EXTREMITIES: No cyanosis. No clubbing. No edema. WELLNESS SPECIALIST: The patient is aphasic, awake, oriented and he has left-sided hemiparesis. ASSESSMENT: 1. Chest pain, rule out acute coronary syndrome. 2. Cerebrovascular accident with left-sided hemiparesis secondary to intracranial bleeding. 3. Hypertension. 4. Type 2 diabetes mellitus. 5. Aphasia. PLAN: Cardiology consult and follow recommendations and resume the patient's home medications. Neuro consult and follow the recommendations. Ishan Beth MD
[2018-01-19] MEDS: Famotidine 40 MG/5 ML PEG SCH (21:19)
--- NOTE | 2018-01-20 00:07 | PN ---
DATE: 01/19/2018 DAILY PROGRESS NOTE SUBJECTIVE: The patient is seen today, 01/19/2018. He is not in any cardiopulmonary distress. The patient was scheduled for a stress test, but his did not sign the consent. PHYSICAL EXAMINATION: VITAL SIGNS: Blood pressure 144/89, temperature 98.7, respiratory rate 18, and pulse 86. HEENT: Pupils are equal and reactive to light. Normal-appearing mucosa of the conjunctivae, oropharynx, and nasal membrane mucosa. NECK: Supple. No JVD. No carotid bruit. No lymph nodes. No thyromegaly. CHEST AND LUNGS: Bilateral symmetrical expansion. Good air exchange. No rales. No rhonchi. CARDIOVASCULAR SYSTEM: PMI not localized. S1 and S2. No additional sounds. ABDOMEN: Normoactive bowel sounds. No tenderness. No organomegaly. Gastric tube in place. EXTREMITIES: No cyanosis, no clubbing, no edema. CENTRAL NERVOUS SYSTEM: Awake but aphasic, and he has left-sided hemiparesis. ASSESSMENT: Nontraumatic brain bleeding, hypertension, type 2 diabetes mellitus, chest pain. Myocardial infraction was ruled out. stress test was not done due to the non-acceptance of the possible side effects of the test. PLAN: We will follow the MRI done by neurologist and if neurologist agreed, we will start the patient on aspirin 81 mg. Continue current medications. Discussed the patient's condition with as well as with the patient's at the bedside. If the patient is to be stable, he will be back to subacute rehabilitation tomorrow. Ishan Beth MD
[2018-01-20] MEDS: Insulin Regular 100 units/ml SC SCH ×4 (06:42→23:00)
[2018-01-20] MEDS: Zinc Oxide 5 APPL/28 GM OINT TP SCH ×2 (08:55→21:00)
[2018-01-20] MEDS: Betamethasone Dip 0.05% Cream(15 gm) TOP SCH ×2 (08:59→16:19)
[2018-01-20] MEDS: Ferrous Sulfate 220 MG/5 ML PO SCH (09:00)
[2018-01-20] MEDS: Lidocaine 5% Patch TD SCH (09:01)
[2018-01-20] MEDS: Enoxaparin 40 mg Syringe SC SCH (09:04)
--- NOTE | 2018-01-20 09:04 | CP.PCM.PN ---
Subjective - Date & Time of Evaluation Date of Evaluation: 01/20/18 Time of Evaluation: 07:30 - Subjective Subjective: NO OBVIOUS NEW COMPLAINTS Objective - Vital Signs/Intake and Output Vital Signs (last 24 hours): Temp Pulse Resp BP Pulse Ox 99.0 F 83 24 135/81 99 01/20/18 08:51 01/20/18 08:51 01/20/18 08:51 01/20/18 08:51 01/20/18 08:51 Intake and Output: 01/20/18 01/20/18 06:59 18:59 Intake Total 1220 Output Total 1400 Balance -180 - Medications Medications: Current Medications Acetaminophen (Tylenol 325mg Tab) 650 mg PEG Q4 PRN PRN Reason: Temp >100 Acetaminophen (Tylenol 325mg Tab) 650 mg PEG Q4 PRN PRN Reason: Pain, Mild (1-3) Al Hydrox/Mg Hydrox/Simethicone (Maalox Plus 30 Ml) 30 ml PEG Q4 PRN PRN Reason: Heartburn Albuterol/Ipratropium (Duoneb 3 Mg/0.5 Mg (3 Ml) Ud) 3 ml INH RTID PRN PRN Reason: Shortness of Breath Amlodipine Besylate (Norvasc) 10 mg PEG DAILY [facility] Last Admin: 01/19/18 09:26 Dose: 10 mg Aspirin (Ecotrin) 81 mg PO DAILY [facility] Atorvastatin Calcium (Lipitor) 40 mg PEG HS [facility] Last Admin: 01/19/18 21:19 Dose: 40 mg Betamethasone Dipropion Augmented (Diprolene Af) 1 gm TOP BID [facility] Last Admin: 01/19/18 16:42 Dose: 1 applic Clotrimazole (Lotrimin 1%) 1 applic TOP BID [facility] Last Admin: 01/19/18 16:42 Dose: 1 applic Enoxaparin Sodium (Lovenox) 40 mg SC DAILY [facility]; Protocol Last Admin: 01/19/18 09:09 Dose: 40 mg Famotidine (Pepcid) 20 mg PEG HS [facility] Last Admin: 01/19/18 21:19 Dose: 20 mg Ferrous Sulfate (Ferrous Sulfate) 308 mg PO DAILY [facility] Last Admin: 01/19/18 09:07 Dose: 308 mg Glucagon (Glucagen Diagnostic Kit) 1 mg IM PRN PRN PRN Reason: Hypoglycemia Insulin Human Regular (Humulin R) 0 units SC ACCU-CHECK [facility]; Protocol Last Admin: 01/20/18 06:42 Dose: Not Given Labetalol HCl (Trandate) 200 mg PEG Q12 [facility] Last Admin: 01/19/18 21:19 Dose: 200 mg Lidocaine (Lidoderm) 1 ea TD DAILY [facility] Last Admin: 01/19/18 09:07 Dose: 1 ea Losartan Potassium (Cozaar) 100 mg PEG DAILY [facility] Last Admin: 01/19/18 09:05 Dose: 100 mg Magnesium Hydroxide (Milk Of Magnesia) 30 ml PEG DAILY PRN PRN Reason: Constipation Nystatin (Nystop Topical Powder) 1 applic TOP Q12 [facility] Last Admin: 01/19/18 21:18 Dose: 1 applic Ondansetron HCl (Zofran Tab) 4 mg PEG Q8 PRN PRN Reason: Nausea/Vomiting Petrolatum (Boudreauxs) 1 appl TP Q12 [facility] Last Admin: 01/19/18 21:20 Dose: 1 appl Silver Sulfadiazine (Silvadene 1% 20 Gm) 1 ea TOP Q12 [facility] Last Admin: 01/19/18 21:19 Dose: 1 applic - Labs Labs: 01/17/18 21:57 01/17/18 21:57 PT 11.7 Seconds (9.8-13.1) 01/17/18 21:57 INR 1.1 01/17/18 21:57 APTT 33.8 Seconds (25.6-37.1) 01/17/18 21:57 - Respiratory Exam Respiratory Exam: Clear to Ausculation Bilateral - Cardiovascular Exam Cardiovascular Exam: REGULAR RHYTHM, +S1, +S2 - Extremities Exam Extremities Exam: Normal Inspection - Additional Findings Additional findings: EKG NSR Assessment and Plan - Assessment and Plan (Free Text) Assessment: CHEST AND LEFT SHOULDER HYPERTENSION CVA HISTORY Plan: THE DECIDED NOT TO PROCEED WITH THE STRESS TEST AND THE PATIENT WILL BE DISCHARGED TODAY
[2018-01-20] MEDS: Silver Sulfadiazine 1% Cream (20 gm) TOP SCH ×2 (09:06→21:41)
[2018-01-20] MEDS: Proshield Plus GEL TOP SCH ×2 (10:30→16:21)
[2018-01-20] MEDS: Famotidine 40 MG/5 ML PEG SCH (21:40)
[2018-01-21] MEDS: Proshield Plus GEL TOP SCH ×3 (01:46→17:38)
[2018-01-21] MEDS: Zinc Oxide 5 APPL/28 GM OINT TP SCH ×2 (10:45→22:41)
[2018-01-21] MEDS: Betamethasone Dip 0.05% Cream(15 gm) TOP SCH ×2 (10:48→17:34)
[2018-01-21] MEDS: Ferrous Sulfate 220 MG/5 ML PO SCH (10:51)
[2018-01-21] MEDS: Lidocaine 5% Patch TD SCH (10:52)
[2018-01-21] MEDS: Enoxaparin 40 mg Syringe SC SCH (10:54)
[2018-01-21] MEDS: Silver Sulfadiazine 1% Cream (20 gm) TOP SCH ×2 (10:56→22:42)
[2018-01-21] MEDS: Insulin Regular 100 units/ml SC SCH ×3 (12:15→22:33)
--- NOTE | 2018-01-21 14:02 | CP.PCM.PN ---
Subjective - Date & Time of Evaluation Date of Evaluation: 01/21/18 Time of Evaluation: 13:30 - Subjective Subjective: Patient seen bedside .Aphasic,lying in bed in NAD , with left side weakness. Hemodynamically stable, afebrile No acute issues overnight refused pharmacological stress test Objective - Vital Signs/Intake and Output Vital Signs (last 24 hours): Temp Pulse Resp BP Pulse Ox 100.0 F H 87 19 165/96 H 96 01/21/18 12:35 01/21/18 12:35 01/21/18 12:35 01/21/18 12:35 01/21/18 12:35 - Medications Medications: Current Medications Acetaminophen (Tylenol 325mg Tab) 650 mg PEG Q4 PRN PRN Reason: Temp >100 Acetaminophen (Tylenol 325mg Tab) 650 mg PEG Q4 PRN PRN Reason: Pain, Mild (1-3) Al Hydrox/Mg Hydrox/Simethicone (Maalox Plus 30 Ml) 30 ml PEG Q4 PRN PRN Reason: Heartburn Albuterol/Ipratropium (Duoneb 3 Mg/0.5 Mg (3 Ml) Ud) 3 ml INH RTID PRN PRN Reason: Shortness of Breath Amlodipine Besylate (Norvasc) 10 mg PEG DAILY [facility] Last Admin: 01/21/18 10:55 Dose: 10 mg Aspirin (Ecotrin) 81 mg PO DAILY [facility] Last Admin: 01/21/18 10:49 Dose: 81 mg Atorvastatin Calcium (Lipitor) 40 mg PEG HS [facility] Last Admin: 01/20/18 21:40 Dose: 40 mg Betamethasone Dipropion Augmented (Diprolene Af) 1 gm TOP BID [facility] Last Admin: 01/21/18 10:48 Dose: 1 applic Clotrimazole (Lotrimin 1%) 1 applic TOP BID [facility] Last Admin: 01/21/18 10:53 Dose: 1 applic Dimethicone (Proshield Plus Skin Protectant) 1 applic TOP Q8 [facility] Last Admin: 01/21/18 10:56 Dose: 1 applic Famotidine (Pepcid) 20 mg PEG HS [facility] Last Admin: 01/20/18 21:40 Dose: 20 mg Ferrous Sulfate (Ferrous Sulfate) 308 mg PO DAILY [facility] Last Admin: 01/21/18 10:51 Dose: 308 mg Glucagon (Glucagen Diagnostic Kit) 1 mg IM PRN PRN PRN Reason: Hypoglycemia Insulin Human Regular (Humulin R) 0 units SC ACCU-CHECK [facility]; Protocol Last Admin: 01/20/18 23:00 Dose: Not Given Labetalol HCl (Trandate) 200 mg PEG Q12 [facility] Last Admin: 01/20/18 21:40 Dose: 200 mg Lidocaine (Lidoderm) 1 ea TD DAILY [facility] Last Admin: 01/21/18 10:52 Dose: 1 ea Losartan Potassium (Cozaar) 100 mg PEG DAILY [facility] Last Admin: 01/21/18 10:46 Dose: 100 mg Magnesium Hydroxide (Milk Of Magnesia) 30 ml PEG DAILY PRN PRN Reason: Constipation Nystatin (Nystop Topical Powder) 1 applic TOP Q12 [facility] Last Admin: 01/21/18 10:55 Dose: 1 applic Ondansetron HCl (Zofran Tab) 4 mg PEG Q8 PRN PRN Reason: Nausea/Vomiting Petrolatum (Boudreauxs) 1 appl TP Q12 [facility] Last Admin: 01/21/18 10:45 Dose: 1 appl Silver Sulfadiazine (Silvadene 1% 20 Gm) 1 ea TOP Q12 [facility] Last Admin: 01/21/18 10:56 Dose: 1 applic - Labs Labs: 01/17/18 21:57 01/17/18 21:57 PT 11.7 Seconds (9.8-13.1) 01/17/18 21:57 INR 1.1 01/17/18 21:57 APTT 33.8 Seconds (25.6-37.1) 01/17/18 21:57 - Constitutional Appears: Non-toxic, No Acute Distress - Head Exam Head Exam: NORMOCEPHALIC - Eye Exam Eye Exam: EOMI, PERRL Pupil Exam: NORMAL ACCOMODATION - ENT Exam ENT Exam: Mucous Membranes Moist, Normal Exam - Neck Exam Neck Exam: Normal Inspection - Respiratory Exam Respiratory Exam: Clear to Ausculation Bilateral, NORMAL BREATHING PATTERN. absent: Rhonchi, Wheezes, Respiratory Distress - Cardiovascular Exam Cardiovascular Exam: REGULAR RHYTHM, RRR, +S1, +S2. absent: JVD - GI/Abdominal Exam GI & Abdominal Exam: Soft, Normal Bowel Sounds. absent: Distended, Guarding, Tenderness, Rebound Additional comments: peg in place - Rectal Exam Rectal Exam: Deferred - Extremities Exam Extremities Exam: Full ROM, Normal Capillary Refill, Normal Inspection. absent: Pedal Edema - Back Exam Back Exam: NORMAL INSPECTION - Neurological Exam Neurological Exam: Alert, Awake, CN II-XII Intact Additional comments: aphasic with left side weakness - Psychiatric Exam Psychiatric exam: Flat Affect - Skin Skin Exam: Dry, Normal Color, Warm Assessment and Plan - Assessment and Plan (Free Text) Assessment: 52 y/o male with a PMHx of CVA, hypercholesterolemia, HTN, DM and renal insufficiency presenting with chest pain, occurring for the past month. Patient initially thought to be due to subluxation of the shoulder. Pain has been occurring now with increase frequency according to the . All history was obtained from the as patient is non-verbal. 1. Chest pain cardiology consult appreciated refused pharmacological work up Continue medical management Chest pain free at present and hemodynamicallty stable on Lidoderm patch for MSK pain 2.Intracranial bleed with left sided weakness and aphasia To be transfered back to rehab for PT Continue ASA, statin and BP control 3. Hypertension controlled on Labetalol, Losartan and Amlodipine 4. Dyslipidemia on Statin 5. Subluxated Left shoulder Pain management 6.DVt prophylaxis SCD
--- NOTE | 2018-01-21 15:19 | CP.PCM.PN ---
Subjective - Date & Time of Evaluation Date of Evaluation: 01/21/18 Time of Evaluation: 14:00 - Subjective Subjective: NO NEW COMPLAINTS Objective - Vital Signs/Intake and Output Vital Signs (last 24 hours): Temp Pulse Resp BP Pulse Ox 100.0 F H 87 19 165/96 H 96 01/21/18 12:35 01/21/18 12:35 01/21/18 12:35 01/21/18 12:35 01/21/18 12:35 - Medications Medications: Current Medications Acetaminophen (Tylenol 325mg Tab) 650 mg PEG Q4 PRN PRN Reason: Temp >100 Acetaminophen (Tylenol 325mg Tab) 650 mg PEG Q4 PRN PRN Reason: Pain, Mild (1-3) Al Hydrox/Mg Hydrox/Simethicone (Maalox Plus 30 Ml) 30 ml PEG Q4 PRN PRN Reason: Heartburn Albuterol/Ipratropium (Duoneb 3 Mg/0.5 Mg (3 Ml) Ud) 3 ml INH RTID PRN PRN Reason: Shortness of Breath Amlodipine Besylate (Norvasc) 10 mg PEG DAILY [facility] Last Admin: 01/21/18 10:55 Dose: 10 mg Aspirin (Ecotrin) 81 mg PO DAILY [facility] Last Admin: 01/21/18 10:49 Dose: 81 mg Atorvastatin Calcium (Lipitor) 40 mg PEG HS [facility] Last Admin: 01/20/18 21:40 Dose: 40 mg Betamethasone Dipropion Augmented (Diprolene Af) 1 gm TOP BID [facility] Last Admin: 01/21/18 10:48 Dose: 1 applic Clotrimazole (Lotrimin 1%) 1 applic TOP BID [facility] Last Admin: 01/21/18 10:53 Dose: 1 applic Dimethicone (Proshield Plus Skin Protectant) 1 applic TOP Q8 [facility] Last Admin: 01/21/18 10:56 Dose: 1 applic Famotidine (Pepcid) 20 mg PEG HS [facility] Last Admin: 01/20/18 21:40 Dose: 20 mg Ferrous Sulfate (Ferrous Sulfate) 308 mg PO DAILY [facility] Last Admin: 01/21/18 10:51 Dose: 308 mg Glucagon (Glucagen Diagnostic Kit) 1 mg IM PRN PRN PRN Reason: Hypoglycemia Insulin Human Regular (Humulin R) 0 units SC ACCU-CHECK [facility]; Protocol Last Admin: 01/20/18 23:00 Dose: Not Given Labetalol HCl (Trandate) 200 mg PEG Q12 [facility] Last Admin: 01/20/18 21:40 Dose: 200 mg Lidocaine (Lidoderm) 1 ea TD DAILY [facility] Last Admin: 01/21/18 10:52 Dose: 1 ea Losartan Potassium (Cozaar) 100 mg PEG DAILY [facility] Last Admin: 01/21/18 10:46 Dose: 100 mg Magnesium Hydroxide (Milk Of Magnesia) 30 ml PEG DAILY PRN PRN Reason: Constipation Nystatin (Nystop Topical Powder) 1 applic TOP Q12 [facility] Last Admin: 01/21/18 10:55 Dose: 1 applic Ondansetron HCl (Zofran Tab) 4 mg PEG Q8 PRN PRN Reason: Nausea/Vomiting Petrolatum (Boudreauxs) 1 appl TP Q12 [facility] Last Admin: 01/21/18 10:45 Dose: 1 appl Silver Sulfadiazine (Silvadene 1% 20 Gm) 1 ea TOP Q12 [facility] Last Admin: 01/21/18 10:56 Dose: 1 applic - Labs Labs: 01/17/18 21:57 01/17/18 21:57 PT 11.7 Seconds (9.8-13.1) 01/17/18 21:57 INR 1.1 01/17/18 21:57 APTT 33.8 Seconds (25.6-37.1) 01/17/18 21:57 - Respiratory Exam Respiratory Exam: Clear to Ausculation Bilateral - Cardiovascular Exam Cardiovascular Exam: REGULAR RHYTHM, +S1, +S2 - Additional Findings Additional findings: LIGHT OUT EXAMINER NSR Assessment and Plan - Assessment and Plan (Free Text) Assessment: STABLE CARDIAC STATUS HYPERTENSION HYPERLIPIDEMIA DM Plan: CONTINUE PRESENT TREATMENT FOR TRANSFER BACK TO REHAB
[2018-01-21] MEDS: Famotidine 40 MG/5 ML PEG SCH (22:48)
[2018-01-22] MEDS: Proshield Plus GEL TOP SCH ×3 (01:00→16:54)
[2018-01-22] MEDS: Betamethasone Dip 0.05% Cream(15 gm) TOP SCH ×2 (09:54→16:52)
[2018-01-22] MEDS: Zinc Oxide 5 APPL/28 GM OINT TP SCH ×2 (09:55→22:11)
[2018-01-22] MEDS: Silver Sulfadiazine 1% Cream (20 gm) TOP SCH ×2 (09:56→22:14)
[2018-01-22] MEDS: Ferrous Sulfate 220 MG/5 ML PO SCH (10:00)
[2018-01-22] MEDS: Lidocaine 5% Patch TD SCH (10:05)
[2018-01-22] MEDS: Insulin Regular 100 units/ml SC SCH ×4 (10:07→22:12)
--- NOTE | 2018-01-22 12:57 | CP.PCM.PN ---
Subjective - Date & Time of Evaluation Date of Evaluation: 01/22/18 Time of Evaluation: 11:00 - Subjective Subjective: Patient seen and examined. Remained aphasic with left sided weakness but has no complaint. Objective - Vital Signs/Intake and Output Vital Signs (last 24 hours): Temp Pulse Resp BP Pulse Ox 97.8 F 69 17 128/83 98 01/22/18 12:50 01/22/18 12:50 01/22/18 12:50 01/22/18 12:50 01/22/18 12:50 Intake and Output: 01/22/18 01/22/18 06:59 18:59 Intake Total 575 Output Total 650 Balance -75 - Medications Medications: Current Medications Acetaminophen (Tylenol 325mg Tab) 650 mg PEG Q4 PRN PRN Reason: Temp >100 Acetaminophen (Tylenol 325mg Tab) 650 mg PEG Q4 PRN PRN Reason: Pain, Mild (1-3) Al Hydrox/Mg Hydrox/Simethicone (Maalox Plus 30 Ml) 30 ml PEG Q4 PRN PRN Reason: Heartburn Albuterol/Ipratropium (Duoneb 3 Mg/0.5 Mg (3 Ml) Ud) 3 ml INH RTID PRN PRN Reason: Shortness of Breath Amlodipine Besylate (Norvasc) 10 mg PEG DAILY [facility] Last Admin: 01/22/18 10:01 Dose: 10 mg Aspirin (Ecotrin) 81 mg PO DAILY [facility] Last Admin: 01/22/18 10:03 Dose: 81 mg Atorvastatin Calcium (Lipitor) 40 mg PEG HS [facility] Last Admin: 01/21/18 22:42 Dose: 40 mg Betamethasone Dipropion Augmented (Diprolene Af) 1 gm TOP BID [facility] Last Admin: 01/22/18 09:54 Dose: 1 applic Clotrimazole (Lotrimin 1%) 1 applic TOP BID [facility] Last Admin: 01/22/18 09:54 Dose: 1 applic Dimethicone (Proshield Plus Skin Protectant) 1 applic TOP Q8 [facility] Last Admin: 01/22/18 09:55 Dose: 1 applic Famotidine (Pepcid) 20 mg PEG HS [facility] Last Admin: 01/21/18 22:48 Dose: 20 mg Ferrous Sulfate (Ferrous Sulfate) 308 mg PO DAILY [facility] Last Admin: 01/22/18 10:00 Dose: 308 mg Glucagon (Glucagen Diagnostic Kit) 1 mg IM PRN PRN PRN Reason: Hypoglycemia Insulin Human Regular (Humulin R) 0 units SC ACCU-CHECK [facility]; Protocol Last Admin: 01/22/18 11:34 Dose: Not Given Labetalol HCl (Trandate) 200 mg PEG Q12 [facility] Last Admin: 01/22/18 10:03 Dose: 200 mg Lidocaine (Lidoderm) 1 ea TD DAILY [facility] Last Admin: 01/22/18 10:05 Dose: 1 ea Losartan Potassium (Cozaar) 100 mg PEG DAILY [facility] Last Admin: 01/22/18 10:04 Dose: 100 mg Magnesium Hydroxide (Milk Of Magnesia) 30 ml PEG DAILY PRN PRN Reason: Constipation Nystatin (Nystop Topical Powder) 1 applic TOP Q12 [facility] Last Admin: 01/22/18 09:55 Dose: 1 applic Ondansetron HCl (Zofran Tab) 4 mg PEG Q8 PRN PRN Reason: Nausea/Vomiting Petrolatum (Boudreauxs) 1 appl TP Q12 [facility] Last Admin: 01/22/18 09:55 Dose: 1 appl Silver Sulfadiazine (Silvadene 1% 20 Gm) 1 ea TOP Q12 [facility] Last Admin: 01/22/18 09:56 Dose: 1 applic - Labs Labs: 01/17/18 21:57 01/17/18 21:57 PT 11.7 Seconds (9.8-13.1) 01/17/18 21:57 INR 1.1 01/17/18 21:57 APTT 33.8 Seconds (25.6-37.1) 01/17/18 21:57 - Constitutional Appears: No Acute Distress - Head Exam Head Exam: ATRAUMATIC - Eye Exam Eye Exam: absent: Scleral icterus - ENT Exam ENT Exam: Mucous Membranes Moist - Neck Exam Neck Exam: absent: Meningismus - Respiratory Exam Respiratory Exam: absent: Rales, Rhonchi, Wheezes, Respiratory Distress - Cardiovascular Exam Cardiovascular Exam: REGULAR RHYTHM, +S1, +S2 - GI/Abdominal Exam GI & Abdominal Exam: Soft. absent: Tenderness - Rectal Exam Rectal Exam: Deferred - Neurological Exam Neurological Exam: Alert, Awake - Skin Skin Exam: Dry, Intact Assessment and Plan - Assessment and Plan (Free Text) Assessment: 52 yo male with history of HLD, HTN, DM and recent CVA presented with recurring chest pain with normal Troponins. Refused stress test. 1. Chest pain chest pain free and hemodynamicallty stable on Lidoderm patch for MSK pain 2.Intracranial bleed with left sided weakness and aphasia Continue ASA, statin and BP control need continuation of PT in acute rehab 3. Hypertension BP controlled continue Labetalol, Losartan and Amlodipine 4. Dyslipidemia on Statin 5. Subluxated Left shoulder Pain management 6.DVt prophylaxis SCD
--- NOTE | 2018-01-22 13:47 | CP.PCM.PN ---
Subjective - Date & Time of Evaluation Date of Evaluation: 01/22/18 Time of Evaluation: 12:00 - Subjective Subjective: NO APPARENT COMPLAINTS Objective - Vital Signs/Intake and Output Vital Signs (last 24 hours): Temp Pulse Resp BP Pulse Ox 97.8 F 69 17 128/83 98 01/22/18 12:50 01/22/18 12:50 01/22/18 12:50 01/22/18 12:50 01/22/18 12:50 Intake and Output: 01/22/18 01/22/18 06:59 18:59 Intake Total 575 Output Total 650 Balance -75 - Medications Medications: Current Medications Acetaminophen (Tylenol 325mg Tab) 650 mg PEG Q4 PRN PRN Reason: Temp >100 Acetaminophen (Tylenol 325mg Tab) 650 mg PEG Q4 PRN PRN Reason: Pain, Mild (1-3) Al Hydrox/Mg Hydrox/Simethicone (Maalox Plus 30 Ml) 30 ml PEG Q4 PRN PRN Reason: Heartburn Albuterol/Ipratropium (Duoneb 3 Mg/0.5 Mg (3 Ml) Ud) 3 ml INH RTID PRN PRN Reason: Shortness of Breath Amlodipine Besylate (Norvasc) 10 mg PEG DAILY [facility] Last Admin: 01/22/18 10:01 Dose: 10 mg Aspirin (Ecotrin) 81 mg PO DAILY [facility] Last Admin: 01/22/18 10:03 Dose: 81 mg Atorvastatin Calcium (Lipitor) 40 mg PEG HS [facility] Last Admin: 01/21/18 22:42 Dose: 40 mg Betamethasone Dipropion Augmented (Diprolene Af) 1 gm TOP BID [facility] Last Admin: 01/22/18 09:54 Dose: 1 applic Clotrimazole (Lotrimin 1%) 1 applic TOP BID [facility] Last Admin: 01/22/18 09:54 Dose: 1 applic Dimethicone (Proshield Plus Skin Protectant) 1 applic TOP Q8 [facility] Last Admin: 01/22/18 09:55 Dose: 1 applic Famotidine (Pepcid) 20 mg PEG HS [facility] Last Admin: 01/21/18 22:48 Dose: 20 mg Ferrous Sulfate (Ferrous Sulfate) 308 mg PO DAILY [facility] Last Admin: 01/22/18 10:00 Dose: 308 mg Glucagon (Glucagen Diagnostic Kit) 1 mg IM PRN PRN PRN Reason: Hypoglycemia Insulin Human Regular (Humulin R) 0 units SC ACCU-CHECK [facility]; Protocol Last Admin: 01/22/18 11:34 Dose: Not Given Labetalol HCl (Trandate) 200 mg PEG Q12 [facility] Last Admin: 01/22/18 10:03 Dose: 200 mg Lidocaine (Lidoderm) 1 ea TD DAILY [facility] Last Admin: 01/22/18 10:05 Dose: 1 ea Losartan Potassium (Cozaar) 100 mg PEG DAILY [facility] Last Admin: 01/22/18 10:04 Dose: 100 mg Magnesium Hydroxide (Milk Of Magnesia) 30 ml PEG DAILY PRN PRN Reason: Constipation Nystatin (Nystop Topical Powder) 1 applic TOP Q12 [facility] Last Admin: 01/22/18 09:55 Dose: 1 applic Ondansetron HCl (Zofran Tab) 4 mg PEG Q8 PRN PRN Reason: Nausea/Vomiting Petrolatum (Boudreauxs) 1 appl TP Q12 [facility] Last Admin: 01/22/18 09:55 Dose: 1 appl Silver Sulfadiazine (Silvadene 1% 20 Gm) 1 ea TOP Q12 [facility] Last Admin: 01/22/18 09:56 Dose: 1 applic - Labs Labs: 01/17/18 21:57 01/17/18 21:57 PT 11.7 Seconds (9.8-13.1) 01/17/18 21:57 INR 1.1 01/17/18 21:57 APTT 33.8 Seconds (25.6-37.1) 01/17/18 21:57 - Respiratory Exam Respiratory Exam: Clear to Ausculation Bilateral - Cardiovascular Exam Cardiovascular Exam: REGULAR RHYTHM, +S1, +S2 - Extremities Exam Extremities Exam: Normal Inspection Assessment and Plan - Assessment and Plan (Free Text) Assessment: CEREBRAL INFARCT SEPTEMBER 2017 CHEST/LEFT SHOULDER DISCOMFORT-DYSPLASIA? HYPERTENSION DM Plan: FOR DISCHARGE
[2018-01-22] MEDS: Famotidine 40 MG/5 ML PEG SCH (22:13)
[2018-01-23] MEDS: Proshield Plus GEL TOP SCH ×2 (03:42→10:39)
[2018-01-23] MEDS: Insulin Regular 100 units/ml SC SCH ×2 (06:32→12:53)
[2018-01-23 08:22] VITALS: RESP 20
--- NOTE | 2018-01-23 09:16 | CP.PCM.PN ---
Subjective - Date & Time of Evaluation Date of Evaluation: 01/23/18 Time of Evaluation: 07:15 - Subjective Subjective: NO APPARENT NEW PROBLEM Objective - Vital Signs/Intake and Output Vital Signs (last 24 hours): Temp Pulse Resp BP Pulse Ox 98.3 F 73 20 135/81 98 01/23/18 08:22 01/23/18 08:22 01/23/18 08:22 01/23/18 08:22 01/23/18 08:22 Intake and Output: 01/23/18 01/23/18 06:59 18:59 Intake Total 490 Output Total 470 Balance 20 - Medications Medications: Current Medications Acetaminophen (Tylenol 325mg Tab) 650 mg PEG Q4 PRN PRN Reason: Temp >100 Acetaminophen (Tylenol 325mg Tab) 650 mg PEG Q4 PRN PRN Reason: Pain, Mild (1-3) Al Hydrox/Mg Hydrox/Simethicone (Maalox Plus 30 Ml) 30 ml PEG Q4 PRN PRN Reason: Heartburn Albuterol/Ipratropium (Duoneb 3 Mg/0.5 Mg (3 Ml) Ud) 3 ml INH RTID PRN PRN Reason: Shortness of Breath Amlodipine Besylate (Norvasc) 10 mg PEG DAILY [facility] Last Admin: 01/22/18 10:01 Dose: 10 mg Aspirin (Ecotrin) 81 mg PO DAILY [facility] Last Admin: 01/22/18 10:03 Dose: 81 mg Atorvastatin Calcium (Lipitor) 40 mg PEG HS [facility] Last Admin: 01/22/18 22:13 Dose: 40 mg Betamethasone Dipropion Augmented (Diprolene Af) 1 gm TOP BID [facility] Last Admin: 01/22/18 16:52 Dose: 1 applic Clotrimazole (Lotrimin 1%) 1 applic TOP BID [facility] Last Admin: 01/22/18 16:53 Dose: 1 applic Dimethicone (Proshield Plus Skin Protectant) 1 applic TOP Q8 [facility] Last Admin: 01/23/18 03:42 Dose: 1 applic Famotidine (Pepcid) 20 mg PEG HS [facility] Last Admin: 01/22/18 22:13 Dose: 20 mg Ferrous Sulfate (Ferrous Sulfate) 308 mg PO DAILY [facility] Last Admin: 01/22/18 10:00 Dose: 308 mg Glucagon (Glucagen Diagnostic Kit) 1 mg IM PRN PRN PRN Reason: Hypoglycemia Insulin Human Regular (Humulin R) 0 units SC ACCU-CHECK [facility]; Protocol Last Admin: 01/23/18 06:32 Dose: Not Given Labetalol HCl (Trandate) 200 mg PEG Q12 [facility] Last Admin: 01/22/18 22:17 Dose: 200 mg Lidocaine (Lidoderm) 1 ea TD DAILY [facility] Last Admin: 01/22/18 10:05 Dose: 1 ea Losartan Potassium (Cozaar) 100 mg PEG DAILY [facility] Last Admin: 01/22/18 10:04 Dose: 100 mg Magnesium Hydroxide (Milk Of Magnesia) 30 ml PEG DAILY PRN PRN Reason: Constipation Nystatin (Nystop Topical Powder) 1 applic TOP Q12 [facility] Last Admin: 01/22/18 22:13 Dose: 1 applic Ondansetron HCl (Zofran Tab) 4 mg PEG Q8 PRN PRN Reason: Nausea/Vomiting Petrolatum (Boudreauxs) 1 appl TP Q12 [facility] Last Admin: 01/22/18 22:11 Dose: 1 appl Silver Sulfadiazine (Silvadene 1% 20 Gm) 1 ea TOP Q12 [facility] Last Admin: 01/22/18 22:14 Dose: 1 applic - Labs Labs: 01/17/18 21:57 01/17/18 21:57 PT 11.7 Seconds (9.8-13.1) 01/17/18 21:57 INR 1.1 01/17/18 21:57 APTT 33.8 Seconds (25.6-37.1) 01/17/18 21:57 - Respiratory Exam Respiratory Exam: Clear to Ausculation Bilateral - Cardiovascular Exam Cardiovascular Exam: REGULAR RHYTHM, +S1, +S2 - Additional Findings Additional findings: [employer] NSR Assessment and Plan - Assessment and Plan (Free Text) Assessment: CVA SEPTEMBER 2017 HYPERTENSION HYPERLIPIDEMIA DM Plan: CONTINUE LOSARTAN, AMLODIPINE, BABY ASPIRIN, ATORVASTATIN AND LABETOLOL FOR DISCHARGE
[2018-01-23] MEDS: Zinc Oxide 5 APPL/28 GM OINT TP SCH (10:37)
[2018-01-23] MEDS: Silver Sulfadiazine 1% Cream (20 gm) TOP SCH (10:38)
[2018-01-23] MEDS: Betamethasone Dip 0.05% Cream(15 gm) TOP SCH (10:40)
[2018-01-23] MEDS: Ferrous Sulfate 220 MG/5 ML PO SCH (10:41)
[2018-01-23] MEDS: Lidocaine 5% Patch TD SCH (10:42)
[2018-01-23 13:02] VITALS: BP 146/73; PULSE 82; TEMP 99.8; O2SAT 97
--- NOTE | 2018-01-23 21:29 | PQF ---
PROVIDER RESPONSE TEXT: Present of admission. REVIEWER QUERY TEXT: Pressure Ulcer Type Pressure ulcer is documented in the Medical Record. Please specify the location, present on admission status and stage: down filler: R buttocks stage 2 pressure ulcer. His perineum and buttocks have skin changes indica tive of chronic IAD. On his mid-medial buttock is partial thickness PI secondary to incontinence, fri ction and shear. Location and laterality of pressure ulcer(s): POA status of each pressure ulcer: -- Not present on admission -- Present on admission -- Other -- Clinically unable to determine -- Unknown Stage of each pressure ulcer (National Pressure Ulcer Advisory Panel definitions): -- Stage I: Intact skin with non-blanchable redness of a localized area -- Stage II: Partial thickness skin loss involving dermis with a shallow open ulcer or an open serum -filled blister -- Stage III: Full thickness skin loss involving damage or necrosis of subcutaneous tissue -- Stage IV: Full thickness skin loss with exposed bone, tendon or muscle -- Unstageable: Full thickness tissue loss in which the base of the ulcer is covered by slough and/o r eschar in the wound bed The patient's Clinical Indicators include: down filler: R buttocks stage 2. His perineum and buttocks have skin changes indicative of chronic IAD. On his mid-medial buttock is partial thickness PI secondary to incontinence, friction and shear . Nursing : Multiple open wounds noted on R buttock Query created by: Zamzam Johnston on 01/20/2018 8:46 AM Electronically signed by: Ishan Beth MD 01/23/2018 9:26 PM
--- NOTE | 2018-01-24 03:01 | PN ---
DATE: 01/20/2018 SUBJECTIVE: The patient was seen on 01/20/2018. He was sleepy at the time of this examination with his daughter at the bedside. PHYSICAL EXAMINATION: VITAL SIGNS: Blood pressure was 130/80, temperature 98.2, respiratory rate 18, and pulse 73. HEENT: Pupils equal and reactive to light. Normal-appearing mucosa of the conjunctivae, oropharynx, and nasal membrane mucosa. NECK: Supple. No JVD. No carotid bruits. No lymph node. No thyromegaly. CHEST AND LUNGS: Bilaterally symmetrical expansion. Good air exchange. No rales. No rhonchi. CARDIOVASCULAR SYSTEM: PMI not localized. S1, S2. No additional sounds. ABDOMEN: Normoactive bowel sounds. No tenderness. No organomegaly. Gastric tube in place. EXTREMITIES: No cyanosis. No clubbing. No edema. ASSESSMENT: Cerebrovascular accident with left-sided hemiplegia, gastric tube feeding, type 2 diabetes mellitus, and hypertension. PLAN: MRI of the head was ordered and is cleared. The patient was planned to be discharged to subacute rehabilitation . [facility] MD Kirit
--- NOTE | 2018-01-24 21:07 | DS ---
REASON FOR ADMISSION: This is a 52 years old male with history of multiple medical problems including left-sided hemiplegia after nontraumatic intracerebral bleeding. COURSE OF HOSPITALIZATION: The patient was admitted to Telemetry floor and he had frequent cardiac enzymes ordered that did not show any significant abnormality. The patient had Cardiology consultation done by . Pharmacologic stress test was ordered but declined and he was discharged to subacute rehabilitation at [place] to continue physical therapy. Discussed with the patient's at the bedside. FINAL DIAGNOSES: Cerebrovascular accident with left-sided hemiplegia, type-2 diabetes mellitus, hypertension, aphasia. [facility] MD Kirit
--- NOTE | 2018-01-26 08:25 | PQF ---
PROVIDER RESPONSE TEXT: The cause of the chest pain is uncertain. REVIEWER QUERY TEXT: Symptom Underlying Cause Please document the underlying diagnosis causing the patient?s documented symptom(s) of CHEST PAIN if known or unable to be further specified. The patient's Clinical Indicators include: Admitted with chest pain. Troponins negative, EKG: Sinus with 1st degree, T abnormality, consider lateral ischemia. ECHO: EF 60 % full report in EMR. is declining Stress Test. Query created by: Zamzam Johnston on 01/23/2018 6:56 AM Electronically signed by: Ash Park MD 01/26/2018 8:23 AM
== END 2018-01-23 14:49 | DRG 313 ==
LOC: H.ER 20:59 → H.ERHOLD 21:51 → OBSVTOIN 21:52 → H.TEL 23:45
PROVIDERS: ADMIT Internal Medicine; ATTEND Internal Medicine
DX: R07.9 Chest pain, unspecified (principal); I69.154 Hemiplegia and hemiparesis following nontraumatic intracerebral hemorrhage affecting left non-dominant side; S43.002A Unspecified subluxation of left shoulder joint, initial encounter; X58.XXXA Exposure to other specified factors, initial encounter; L89.312 Pressure ulcer of right buttock, stage 2; I10 Essential (primary) hypertension; E78.5 Hyperlipidemia, unspecified; E11.9 Type 2 diabetes mellitus without complications; E78.00 Pure hypercholesterolemia, unspecified; I34.1 Nonrheumatic mitral (valve) prolapse; N28.9 Disorder of kidney and ureter, unspecified; Z93.1 Gastrostomy status; I69.120 Aphasia following nontraumatic intracerebral hemorrhage

== ENCOUNTER 2018-09-11 09:41 | Inpatient (IN) | payer BC, MEDICARE ==
[2018-09-11 09:45] VITALS: BMI 29.8
--- NOTE | 2018-09-11 10:29 | ED PDOC ---
HPI: Seizure Time Seen by Provider: 09/11/18 09:58 Chief Complaint (Nursing): Seizure Chief Complaint (Provider): Seizure History Per: Family () History/Exam Limitations: no limitations Additional Complaint(s): 52 y/o male presents to the ED complaining of seizures that happen today. Family member states the seizure lasted for 90 seconds. Patient whole body tensed up with eyes rolled back. Probably tongue biting and positive postictal bleeding. states mental status has improved at present but not at baseline. Patient denies any other symptoms at this time. PMD: Dr. Monalisa Kign Past Medical History Reviewed: Historical Data, Nursing Documentation, Vital Signs Vital Signs: Last Vital Signs Temp 96.5 F L 09/11/18 09:44 Pulse 81 09/11/18 09:44 Resp 16 09/11/18 09:44 BP 156/91 H 09/11/18 09:44 Pulse Ox 98 09/11/18 09:44 Primary Care Provider: Non [facility] Provider, - Medical History PMH: Fractures, HTN (uncontrolled), Hypercholesterolemia (Renal Insufficiency), Hyperlipidemia (mild), Mitral Valve Prolapse, Pneumonia (3 months ago), TIA Denies: HIV, Chronic Kidney Disease - Family History Family History: States: Unknown Family Hx - Home Medications Home Medications: Ambulatory Orders Medication Instructions Recorded Atorvastatin [Lipitor] 40 mg PEG HS 01/30/16 amLODIPine [Norvasc] 10 mg PEG DAILY 01/30/16 Desmopressin [Ddavp] 0.1 mg PEG Q12 12/16/17 Labetalol [Trandate] 200 mg PEG Q12 12/16/17 Losartan [Cozaar] 100 mg PEG DAILY 12/16/17 Aspirin [Ecotrin] 81 mg PEG DAILY 09/11/18 Clotrimazole/Betamethasone 1 appl TOP BID 09/11/18 [Lotrisone] Escitalopram Oxalate [Lexapro] 5 mg PEG HS 09/11/18 Pantoprazole Sodium [Protonix] 40 mg PEG BID 09/11/18 Promethazine DM [Phenergan DM 5 ml PEG Q12 PRN 09/11/18 Syrup] Tamsulosin [Flomax] 0.4 mg PEG QPM 09/11/18 Valproic Acid [Depakene Oral Syrup] 750 mg PEG BID #900 ml 09/14/18 - Allergies Allergies/Adverse Reactions: Allergies Allergy/AdvReac Type Severity Reaction Status Date / Time No Known Allergies Allergy Verified 01/17/18 21:03 Review of Systems ROS Statement: Except As Marked, All Systems Reviewed And Found Negative Neurological: Positive for: Seizures Physical Exam - Reviewed Nursing Documentation Reviewed: Yes Vital Signs Reviewed: Yes - Physical Exam Appears: Positive for: Well, Non-toxic, No Acute Distress Head Exam: Positive for: ATRAUMATIC, NORMAL INSPECTION, NORMOCEPHALIC Skin: Positive for: Normal Color, Warm, DRY Eye Exam: Positive for: EOMI, Normal appearance, PERRL ENT: Positive for: Normal ENT Inspection Neck: Positive for: Normal, Painless ROM, Supple Cardiovascular/Chest: Positive for: Regular Rate, Rhythm. Negative for: Murmur Respiratory: Positive for: Normal Breath Sounds. Negative for: Wheezing Gastrointestinal/Abdominal: Positive for: Normal Exam, Soft Back: Positive for: Normal Inspection. Negative for: L CVA Tenderness, R CVA Tenderness Extremity: Positive for: Normal ROM Neurological/Psych: Positive for: Awake, Alert, Normal Tone, Other (Open eyes to tactile stimuli) Comments: Not following commands. Non verbal. - Laboratory Results Result Diagrams: 09/14/18 04:30 09/14/18 04:30 - ECG O2 Sat by Pulse Oximetry: 98 Medical Decision Making Medical Decision Making: Time:950 Impression: Plan: -CT -EKG -CMP -ED urine -CBC -PTT -Prothrobime -Chest x-ray -Glucose, blood POC -Urinalysis Accession No. : [id number] Patient Name / ID : LEONEL MUNOZ / [id number] Exam Date : 09/11/2018 10:28:03 ( Approved ) Study Comment : Sex / Age : M / 52Y Creator : Faisal Salvador MD Dictator : Faisal Salvador MD Rn Telehealth : Apple Checker : Faisal Salvador MD Approver2 : Report Date : 09/11/2018 11:25:15 My Comment : Date of service: 09/11/2018 HISTORY: Seizure COMPARISON: 01/17/2018 TECHNIQUE: 1 view obtained. FINDINGS: LUNGS: Linear scar/atelectasis at left base new since prior examination. No infiltrate. PLEURA: No significant pleural effusion identified, no pneumothorax apparent. CARDIOVASCULAR: No aortic atherosclerotic calcification present. Normal cardiac size. No pulmonary vascular congestion. OSSEOUS STRUCTURES: No significant abnormalities. VISUALIZED UPPER ABDOMEN: Normal. OTHER FINDINGS: None. IMPRESSION: No active disease. Accession No. : [id number] Patient Name / ID : LEONEL MUNOZ / [id number] Exam Date : 09/11/2018 12:05:50 ( Approved ) Study Comment : Sex / Age : M / 52Y Creator : Faisal Salvador MD Dictator : Faisal Salvador MD Rn Telehealth : Apple Checker : Faisal Salvador MD Approver2 : Report Date : 09/11/2018 13:22:53 My Comment : Date of service: 09/11/2018 PROCEDURE: CT HEAD WITHOUT CONTRAST. HISTORY: New onset seizure COMPARISON: MRI brain 01/19/2018 TECHNIQUE: Axial computed tomography images were obtained through the head/brain without intravenous contrast. Radiation dose: Total exam DLP = 1464.58 mGy-cm. This CT exam was performed using one or more of the following dose reduction techniques: Automated exposure control, adjustment of the mA and/or kV according to patient size, and/or use of iterative reconstruction technique. FINDINGS: HEMORRHAGE: No acute intracranial hemorrhage. BRAIN: Status post right frontal craniotomy. There is a left frontal shunt tract through the calvarium. There is mild diffuse atrophy. There is 6 cystic encephalomalacia in the high right frontal region, beneath the craniotomy. There are old infarcts in the basal ganglia bilaterally. There is wallerian degeneration seen in the left medulla, the right gary and extending into the right basal ganglia. There is extensive periventricular white matter lucency consistent with chronic microvascular ischemic change. There is very mild ventriculomegaly, right greater than left, likely related to the encephalomalacia noted above. There is what is likely an arachnoid cyst anterior to the left anterior temporal lobe. This corresponds to an arachnoid cyst seen on MRI examination of 01/19/2018. VENTRICLES: As above. No hydrocephalus. No midline shift. CALVARIUM: No acute fracture. See above. PARANASAL SINUSES: Chronic ethmoid and bilateral maxillary sinusitis. MASTOID AIR CELLS: Unremarkable as visualized. No inflammatory changes. OTHER FINDINGS: None. IMPRESSION: No intracranial mass, hemorrhage or evidence of acute infarct. High right front al cystic encephalomalacia beneath a craniotomy. Bilateral basal ganglia infarcts with wallerian degeneration as described in the medulla and gary. Chronic white matter ischemic change. Left anterior temporal arachnoid cyst. Chronic paranasal sinusitis. 13:[address] Noel, recommends Depakote 1 g IV then 500 mg bid. Scribe Attestation: Documented by Catie Ruiz, acting as a scribe for Jess Zuniga Provider Scribe Attestation: All medical record entries made by the Scribe were at my direction and personally dictated by me. I have reviewed the chart and agree that the record accurately reflects my personal performance of the history, physical exam, medical decision making, and the department course for this patient. I have also personally directed, reviewed, and agree with the discharge instructions and disposition. Disposition - Clinical Impression Clinical Impression: New onset seizure, UTI (urinary tract infection) - Patient ED Disposition Is Patient to be Admitted: Yes - Disposition Disposition Time: 13:45 Condition: STABLE - Pt Status Changed To: Hospital Disposition Of: Inpatient - Admit Certification Admit to Inpatient:: After my assessment, the patient will require hospitalization for at least two midnights. This is because of the severity of symptoms shown, intensity of services needed, and/or the medical risk in this patient being treated as an outpatient. - POA Present On Arrival: Cath Associated UTI
--- NOTE | 2018-09-11 11:29 | RAD ---
Date of service: 09/11/2018 HISTORY: Seizure COMPARISON: 01/17/2018 TECHNIQUE: 1 view obtained. FINDINGS: LUNGS: Linear scar/atelectasis at left base new since prior examination. No infiltrate. PLEURA: No significant pleural effusion identified, no pneumothorax apparent. CARDIOVASCULAR: No aortic atherosclerotic calcification present. Normal cardiac size. No pulmonary vascular congestion. OSSEOUS STRUCTURES: No significant abnormalities. VISUALIZED UPPER ABDOMEN: Normal. OTHER FINDINGS: None. IMPRESSION: No active disease.
[2018-09-11 11:36] LABS: BASO % 0.6 % (0.0-2.0); EOS # 0.2 K/uL (0.0-0.7); EOS % 2.7 % (0.0-4.0); HEMOGLOBIN 12.7 g/dL (12.0-18.0); LYMPH # 1.2 K/uL (1.0-4.3); LYMPH % 17.5 % (20.0-40.0); MEAN CELL VOLUME 88.4 fl (80.0-94.0); MEAN CORPUSCULAR HEMOGLOBIN 29.9 pg (27.0-31.0); MEAN CORPUSCULAR HGB CONC 33.9 g/dL (33.0-37.0); MEAN PLATELET VOLUME 8.7 fl (7.2-11.7); MONO # 0.4 K/uL (0.0-0.8); NEUT % 73.2 % (50.0-75.0); NRBC % 0.1 % (0.0-0.0); RBC 4.25 Mil/uL (4.40-5.90); RED CELL DISTRIBUTION WIDTH 14.3 % (11.5-14.5); WHITE BLOOD COUNT 6.9 K/uL (4.8-10.8)
[2018-09-11 11:39] LABS: PROTHROMBIN TIME 11.9 Seconds (9.8-13.1)
[2018-09-11 11:41] LABS: PARTIAL THROMBOPLASTIN TIME 34.1 Seconds (25.6-37.1)
[2018-09-11 11:48] LABS: BLOOD UREA NITROGEN 10 mg/dl (9-20); CALCIUM 8.8 mg/dL (8.4-10.2); GFR NON-AFRICAN AMERICAN > 60
--- NOTE | 2018-09-11 11:48 | CARD ---
APPROVED REPORT Date of service: 09/11/2018 EKG Measurement Heart [id number] <Conclusion> Sinus rhythm with 1st degree AV block Borderline ECG
[2018-09-11 11:50] LABS: ALB/GLOB RATIO 1.2 (1.0-2.1); ALBUMIN 4.2 g/dL (3.5-5.0); ALT/SGPT 16 U/L (21-72); AST/SGOT 39 U/L (17-59)
[2018-09-11 13:18] LABS: URINE AMORPHOUS SEDIMENT MODERATE /ul (<OCC); URINE BACTERIA OCC (<OCC); URINE BILIRUBIN NEGATIVE (NEGATIVE); URINE BLOOD SMALL (NEGATIVE); URINE CLARITY CLOUDY (Clear); URINE COLOR YELLOW (YELLOW); URINE GLUCOSE (UA) NEG (NEGATIVE); URINE LEUKOCYTE ESTERASE LARGE Leu/uL (Negative); URINE PROTEIN 30 mg/dL (NEGATIVE); URINE UROBILINOGEN 0.2-1.0 mg/dL (0.2-1.0); WBC CLUMPS MANY /hpf
--- NOTE | 2018-09-11 13:27 | CT ---
Date of service: 09/11/2018 PROCEDURE: CT HEAD WITHOUT CONTRAST. HISTORY: New onset seizure COMPARISON: MRI brain 01/19/2018 TECHNIQUE: Axial computed tomography images were obtained through the head/brain without intravenous contrast. Radiation dose: Total exam DLP = 1464.58 mGy-cm. This CT exam was performed using one or more of the following dose reduction techniques: Automated exposure control, adjustment of the mA and/or kV according to patient size, and/or use of iterative reconstruction technique. FINDINGS: HEMORRHAGE: No acute intracranial hemorrhage. BRAIN: Status post right frontal craniotomy. There is a left frontal shunt tract through the calvarium. There is mild diffuse atrophy. There is 6 cystic encephalomalacia in the high right frontal region, beneath the craniotomy. There are old infarcts in the basal ganglia bilaterally. There is wallerian degeneration seen in the left medulla, the right gary and extending into the right basal ganglia. There is extensive periventricular white matter lucency consistent with chronic microvascular ischemic change. There is very mild ventriculomegaly, right greater than left, likely related to the encephalomalacia noted above. There is what is likely an arachnoid cyst anterior to the left anterior temporal lobe. This corresponds to an arachnoid cyst seen on MRI examination of 01/19/2018. VENTRICLES: As above. No hydrocephalus. No midline shift. CALVARIUM: No acute fracture. See above. PARANASAL SINUSES: Chronic ethmoid and bilateral maxillary sinusitis. MASTOID AIR CELLS: Unremarkable as visualized. No inflammatory changes. OTHER FINDINGS: None. IMPRESSION: No intracranial mass, hemorrhage or evidence of acute infarct. High right frontal cystic encephalomalacia beneath a craniotomy. Bilateral basal ganglia infarcts with wallerian degeneration as described in the medulla and gary. Chronic white matter ischemic change. Left anterior temporal arachnoid cyst. Chronic paranasal sinusitis.
[2018-09-11] MEDS ORDERED: Valproate 1,000 MG in Sodium Chloride 0.9% 100 ML IVPB ONE (13:47)
[2018-09-11] MEDS ORDERED: cefTRIAXone (Rocephin) 1 gm Inj ONE (14:44)
[2018-09-11] MEDS ORDERED: [UNRECOGNIZED DRUG - OTHER] TOP SCH (17:00)
[2018-09-11] MEDS ORDERED: CLOTRIMAZOLE TOP SCH (17:00)
--- NOTE | 2018-09-11 18:14 | CP.PCM.HP ---
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 Was brought to ER by due to new onset of seizure. state that today he woke up and he was shaking in bed, tense, and rolled his upword for at least 90 sec. She denies any trauma or fall. Otherwise she denies any other acute symptoms. also state that have has a chronic rash on back that cover from top to his thigh, which she believe its larisa which was treated by a home doctor, but have not resolved. report patient have peg tube placed, even tho he can eat but she only uses it for his medications. Allergy none PMH as per HPI PSH: Tracheotomy, peg tube placement PFH denies any disorder in family Social: no drink , smoke or drug use. ED Course Vitals WNL except high blood pressure ( 156/91) CBC/CMP WNL UA: + for UTI Dr Roldan Consulted for valproate 1000mg and start on depakote 500mg PO BID Present on Admission - Present on Admission Any Indicators Present on Admission: No Review of Systems - Review of Systems All systems: reviewed and no additional remarkable complaints except Past Patient History - Infectious Disease Hx of Infectious Diseases: None - Past Medical History & Family History Past Medical History?: Yes - Past Social History Smoking Status: Former Smoker - CARDIAC Hx Hypercholesterolemia: Yes (Renal Insufficiency) Hx Hypertension: Yes (uncontrolled) Hx Mitral Valve Prolapse: Yes - PULMONARY Hx Pneumonia: Yes (3 months ago) - NEUROLOGICAL Hx Transient Ischemic Attacks (TIA): Yes - HEENT Hx HEENT Problems: Yes Other/Comment: Double/Triple vision when looking to the right. Blurry vision and pain. oculomotor nerve palsy - RENAL Hx Chronic Kidney Disease: No - ENDOCRINE/METABOLIC Hx Endocrine Disorders: Yes Hx Diabetes Insipidus: Yes Hx Diabetes Mellitus Type 2: Yes - HEMATOLOGICAL/ONCOLOGICAL Hx Human Immunodeficiency Virus (HIV): No - INTEGUMENTARY Hx Dermatological Problems: Yes (pressure ulcer on right buttock) - MUSCULOSKELETAL/RHEUMATOLOGICAL Hx Fractures: Yes - GASTROINTESTINAL Hx Gastrointestinal Disorders: Yes (Gtube) Hx Constipation: Yes (Started 2 yrs ago) - GENITOURINARY/GYNECOLOGICAL Hx Genitourinary Disorders: Yes Hx Incontinence: Yes - PSYCHIATRIC Hx Psychophysiologic Disorder: No Hx Substance Use: No - SURGICAL HISTORY Hx Surgeries: Yes Hx Arthroscopy: Yes (Bilateral Knee Twice ([id number])) Other/Comment: Cerebral intraventricular surgery (stroke). Abdominal IVC filter. - ANESTHESIA Hx Anesthesia: Yes Hx Anesthesia Reactions: No Hx Malignant Hyperthermia: No Meds Allergies/Adverse Reactions: Allergies Allergy/AdvReac Type Severity Reaction Status Date / Time No Known Allergies Allergy Verified 01/17/18 21:03 Physical Exam - Constitutional Appears: Well, Non-toxic, No Acute Distress - Head Exam Head Exam: ATRAUMATIC Additional comments: LEFT paralysis noted - Eye Exam Eye Exam: EOMI, Normal appearance, PERRL Pupil Exam: NORMAL ACCOMODATION, PERRL - ENT Exam ENT Exam: Mucous Membranes Moist, Normal Exam - Respiratory Exam Respiratory Exam: Clear to Auscultation Bilateral, NORMAL BREATHING PATTERN - Cardiovascular Exam Cardiovascular Exam: REGULAR RHYTHM, +S2, Systolic Murmur - GI/Abdominal Exam GI & Abdominal Exam: Normal Bowel Sounds, Soft - Extremities Exam Additional comments: Sensation intact Complete paralysis of LEFT body - Back Exam Additional comments: rash noted over back and thigh - Neurological Exam Neurological exam: Alert, Oriented x3 - Psychiatric Exam Psychiatric exam: Normal Affect, Normal Mood - Skin Skin Exam: Dry, Intact, Normal Color, Rash, Warm Additional comments: rash on back Results - Vital Signs Recent Vital Signs: Last Vital Signs Temp 96.5 F L 09/11/18 09:44 Pulse 81 09/11/18 09:44 Resp 16 09/11/18 09:44 BP 156/91 H 09/11/18 09:44 Pulse Ox 98 09/11/18 14:00 - Labs Result Diagrams: 09/11/18 11:22 09/11/18 11:22 Labs: Laboratory Results - last 24 hr 09/11/18 09/11/18 09/11/18 11:22 11:22 11:22 WBC 6.9 RBC 4.25 L Hgb 12.7 Hct 37.5 MCV 88.4 D MCH 29.9 MCHC 33.9 RDW 14.3 Plt Count 385 MPV 8.7 Neut % (Auto) 73.2 Lymph % (Auto) 17.5 L [place] % (Auto) 6.0 Eos % (Auto) 2.7 Baso % (Auto) 0.6 Neut # (Auto) 5.0 Lymph # (Auto) 1.2 [place] # (Auto) 0.4 Eos # (Auto) 0.2 Baso # (Auto) 0.0 PT 11.9 INR 1.0 APTT 34.1 Sodium 138 Potassium 5.1 H Chloride 103 Carbon Dioxide 24 Anion Gap 16 BUN 10 Creatinine 0.6 L Est GFR ( Amer) > 60 Est GFR (Non-Af Amer) > 60 POC Glucose (mg/dL) Random Glucose 91 Calcium 8.8 Total Bilirubin 1.2 AST 39 ALT 16 L D Alkaline Phosphatase 55 Total Protein 7.7 Albumin 4.2 Globulin 3.5 Albumin/Globulin Ratio 1.2 Urine Color Urine Clarity Urine pH Ur Specific [place] Urine Protein Urine Glucose (UA) Urine Ketones Urine Blood Urine Nitrate Urine Bilirubin Urine Urobilinogen Ur Leukocyte Esterase Urine RBC (Auto) Urine WBC Clumps (Auto) Urine Microscopic WBC Amorphous Sediment Urine Bacteria 09/11/18 09/11/18 13:05 14:42 WBC RBC Hgb Hct MCV MCH MCHC RDW Plt Count MPV Neut % (Auto) Lymph % (Auto) [place] % (Auto) Eos % (Auto) Baso % (Auto) Neut # (Auto) Lymph # (Auto) [place] # (Auto) Eos # (Auto) Baso # (Auto) PT INR APTT Sodium Potassium Chloride Carbon Dioxide Anion Gap BUN Creatinine Est GFR ( Amer) Est GFR (Non-Af Amer) POC Glucose (mg/dL) 112 H Random Glucose Calcium Total Bilirubin AST ALT Alkaline Phosphatase Total Protein Albumin Globulin Albumin/Globulin Ratio Urine Color Yellow Urine Clarity Cloudy Urine pH 6.0 Ur Specific [place] 1.010 Urine Protein 30 Urine Glucose (UA) Neg Urine Ketones Negative Urine Blood Small Urine Nitrate Negative Urine Bilirubin Negative Urine Urobilinogen 0.2-1.0 Ur Leukocyte Esterase Large Urine RBC (Auto) 2 Urine WBC Clumps (Auto) Many H Urine Microscopic WBC 347 H Amorphous Sediment Moderate H Urine Bacteria Occ H Assessment & Plan - Assessment and Plan (Free Text) Assessment: 52 yo male HTN, Hypercholesterolemia, Hyperlipidemia, Mitral Valve Prolapse, TIA, 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 Was brought to ER by due to new onset of seizure. CT scan No intracranial mass, hemorrhage or evidence of acute infarct. High right frontal cystic encephalomalacia beneath a craniotomy. Bilateral basal ganglia infarcts with wallerian degeneration as described in the medulla and gary. Chronic white matter ischemic change. Left anterior temporal arachnoid cyst. Chronic paranasal sinusitis. New onset of seizure with hx of CVA Currently stable Patient have dysphagia, No trauma or fall S/P loading dose of Valproate Patient was placed on depakote [address] Roldan is on case Possible MRI F/U CBC/CMP UTI Urine + for bacteria with large leukocyte Started Rocephin IVPB Patient is asymptomatic Follow up Urine culture HTN Chronic Continue home medication DM Chronic Continue home medication skin Larisa PO fluconazole Diet Dysphagia thin liquid Medication via PEG tube only DVT Lovenox 40 sc <Verona Reaganno D - Last Filed: 09/12/18 00:07> Results - Vital Signs Recent Vital Signs: Last Vital Signs Temp 98.5 F 09/11/18 19:31 Pulse 85 09/11/18 21:16 Resp 18 09/11/18 19:31 BP 134/80 09/11/18 21:16 Pulse Ox 97 09/11/18 21:16 - Labs Result Diagrams: 09/11/18 11:22 09/11/18 11:22 Labs: Laboratory Results - last 24 hr 09/11/18 09/11/18 09/11/18 11:22 11:22 11:22 WBC 6.9 RBC 4.25 L Hgb 12.7 Hct 37.5 MCV 88.4 D MCH 29.9 MCHC 33.9 RDW 14.3 Plt Count 385 MPV 8.7 Neut % (Auto) 73.2 Lymph % (Auto) 17.5 L [place] % (Auto) 6.0 Eos % (Auto) 2.7 Baso % (Auto) 0.6 Neut # (Auto) 5.0 Lymph # (Auto) 1.2 [place] # (Auto) 0.4 Eos # (Auto) 0.2 Baso # (Auto) 0.0 PT 11.9 INR 1.0 APTT 34.1 Sodium 138 Potassium 5.1 H Chloride 103 Carbon Dioxide 24 Anion Gap 16 BUN 10 Creatinine 0.6 L Est GFR ( Amer) > 60 Est GFR (Non-Af Amer) > 60 POC Glucose (mg/dL) Random Glucose 91 Calcium 8.8 Total Bilirubin 1.2 AST 39 ALT 16 L D Alkaline Phosphatase 55 Total Protein 7.7 Albumin 4.2 Globulin 3.5 Albumin/Globulin Ratio 1.2 Urine Color Urine Clarity Urine pH Ur Specific [place] Urine Protein Urine Glucose (UA) Urine Ketones Urine Blood Urine Nitrate Urine Bilirubin Urine Urobilinogen Ur Leukocyte Esterase Urine RBC (Auto) Urine WBC Clumps (Auto) Urine Microscopic WBC Amorphous Sediment Urine Bacteria 09/11/18 09/11/18 09/11/18 13:05 14:42 19:41 WBC RBC Hgb Hct MCV MCH MCHC RDW Plt Count MPV Neut % (Auto) Lymph % (Auto) [place] % (Auto) Eos % (Auto) Baso % (Auto) Neut # (Auto) Lymph # (Auto) [place] # (Auto) Eos # (Auto) Baso # (Auto) PT INR APTT Sodium Potassium Chloride Carbon Dioxide Anion Gap BUN Creatinine Est GFR ( Amer) Est GFR (Non-Af Amer) POC Glucose (mg/dL) 112 H 93 Random Glucose Calcium Total Bilirubin AST ALT Alkaline Phosphatase Total Protein Albumin Globulin Albumin/Globulin Ratio Urine Color Yellow Urine Clarity Cloudy Urine pH 6.0 Ur Specific [place] 1.010 Urine Protein 30 Urine Glucose (UA) Neg Urine Ketones Negative Urine Blood Small Urine Nitrate Negative Urine Bilirubin Negative Urine Urobilinogen 0.2-1.0 Ur Leukocyte Esterase Large Urine RBC (Auto) 2 Urine WBC Clumps (Auto) Many H Urine Microscopic WBC 347 H Amorphous Sediment Moderate H Urine Bacteria Occ H Attending/Attestation - Attestation I have personally seen and examined this patient.: Yes I have fully participated in the care of the patient.: Yes I have reviewed all pertinent clinical information: Yes Notes (Text): 09/12/18 00:07 Patient seen and examined with resident. Case discussed and agreed with assessment and plan of management
--- NOTE | 2018-09-12 06:20 | CP.PCM.PN ---
<Sloan Waggoner - Last Filed: 09/12/18 13:05> Subjective - Date & Time of Evaluation Date of Evaluation: 09/12/18 Time of Evaluation: 07:00 - Subjective Subjective: Patient seen and examined at bedside. No acute event overnight. Patient is doing well. No seizure. Objective - Vital Signs/Intake and Output Vital Signs (last 24 hours): Temp Pulse Resp BP Pulse Ox 99 F 75 18 137/83 96 09/12/18 05:11 09/12/18 05:11 09/12/18 05:11 09/12/18 05:11 09/12/18 05:11 - Medications Medications: Current Medications Amlodipine Besylate (Norvasc) 10 mg PEG DAILY [facility] Aspirin (Ecotrin) 81 mg PO DAILY [facility] Atorvastatin Calcium (Lipitor) 40 mg PEG HS [facility] Clotrimazole (Lotrimin 1%) 1 applic TOP BID [facility] Last Admin: 09/11/18 19:25 Dose: 1 applic Enoxaparin Sodium (Lovenox) 40 mg SC DAILY [facility]; Protocol Escitalopram Oxalate (Lexapro) 5 mg PO HS [facility] Famotidine (Pepcid) 40 mg PEG HS [facility] Fluconazole (Diflucan) 200 mg PO DAILY [facility]; Protocol Glipizide (Glucotrol Xl) 5 mg PO BRK [facility] Home Med (Desmopressin [Ddavp]) 0.1 mg PEG BID [facility] Ceftriaxone Sodium 1 gm/ (Sodium Chloride) 100 mls @ 100 mls/hr IVPB DAILY [facility]; Protocol Labetalol HCl (Trandate) 200 mg PEG Q12 [facility] Last Admin: 09/11/18 21:16 Dose: 200 mg Losartan Potassium (Cozaar) 100 mg PEG DAILY [facility] Nystatin (Nystop Topical Powder) 1 applic TOP QSHIFT [facility] Valproate Sodium (Depakene Cap) 500 mg PO BID [facility] Last Admin: 09/11/18 19:24 Dose: 500 mg - Labs Labs: 09/11/18 11:22 09/11/18 11:22 PT 11.9 Seconds (9.8-13.1) 09/11/18 11:22 INR 1.0 09/11/18 11:22 APTT 34.1 Seconds (25.6-37.1) 09/11/18 11:22 - Constitutional Appears: Well, Non-toxic, No Acute Distress - Head Exam Head Exam: ATRAUMATIC, NORMAL INSPECTION, NORMOCEPHALIC - Eye Exam Eye Exam: EOMI, Normal appearance, PERRL Pupil Exam: NORMAL ACCOMODATION, PERRL - ENT Exam ENT Exam: Mucous Membranes Moist, Normal Exam - Neck Exam Neck Exam: Full ROM, Normal Inspection - Respiratory Exam Respiratory Exam: Clear to Ausculation Bilateral, NORMAL BREATHING PATTERN - Cardiovascular Exam Cardiovascular Exam: REGULAR RHYTHM, +S1, +S2 - GI/Abdominal Exam GI & Abdominal Exam: Soft, Normal Bowel Sounds - Extremities Exam Extremities Exam: Full ROM, Normal Capillary Refill, Normal Inspection - Neurological Exam Neurological Exam: Alert, Awake - Skin Skin Exam: Normal Color Additional comments: Skin rash noted on Back, Powder is applied Assessment and Plan - Assessment and Plan (Free Text) Assessment: 52 yo male HTN, Hypercholesterolemia, Hyperlipidemia, Mitral Valve Prolapse, T IA, 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 Admitted due to new onset of seizure CT scan No intracranial mass, hemorrhage or evidence of acute infarct. High right frontal cystic encephalomalacia beneath a craniotomy. Bilateral basal ganglia infarcts with wallerian degeneration as described in the medulla and gary. Chronic white matter ischemic change. Left anterior temporal arachnoid cyst. Chronic paranasal sinusitis. New onset of seizure with hx of CVA Currently stable Patient have dysphagia, No trauma or fall S/P loading dose of Valproate On depakote [address] Roldan is on case F/U CBC/CMP UTI Urine + for bacteria with large leukocyte On chronic Gomez Will consult Dr. Shah f/u recommendation on Rocephin IVPB Patient is asymptomatic Follow up Urine culture PEG tube Patient on PEG TUBE for medication use only Patient need replacement of peg tube. Will follow up with GI recommendation Bed Randhawa Reposition patient HTN Chronic Continue home medication DM Chronic Continue home medication skin Sharla PO fluconazole wound care in case Diet Dysphagia thin liquid Medication via PEG tube only DVT Lovenox 40 sc <Mason Reagan D - Last Filed: 09/12/18 16:31> Objective - Vital Signs/Intake and Output Vital Signs (last 24 hours): Temp Pulse Resp BP Pulse Ox 98.2 F 73 16 143/83 97 09/12/18 16:25 09/12/18 16:25 09/12/18 16:25 09/12/18 16:25 09/12/18 16:25 - Medications Medications: Current Medications Amlodipine Besylate (Norvasc) 10 mg PEG DAILY [facility] Last Admin: 09/12/18 09:05 Dose: 10 mg Aspirin (Ecotrin) 81 mg PO DAILY [facility] Last Admin: 09/12/18 09:14 Dose: 81 mg Atorvastatin Calcium (Lipitor) 40 mg PEG HS [facility] Clotrimazole (Lotrimin 1%) 1 applic TOP BID [facility] Last Admin: 09/12/18 14:49 Dose: Not Given Enoxaparin Sodium (Lovenox) 40 mg SC DAILY [facility]; Protocol Last Admin: 09/12/18 10:29 Dose: Not Given Escitalopram Oxalate (Lexapro) 5 mg PEG HS [facility] Famotidine (Pepcid) 40 mg PEG HS [facility] Fluconazole (Diflucan) 200 mg PEG DAILY [facility]; Protocol Last Admin: 09/12/18 09:12 Dose: 200 mg Home Med (Desmopressin [Ddavp]) 0.1 mg PEG BID [facility] Ceftriaxone Sodium 1 gm/ (Sodium Chloride) 100 mls @ 100 mls/hr IVPB DAILY [facility]; Protocol Last Admin: 09/12/18 09:34 Dose: 100 mls/hr Labetalol HCl (Trandate) 200 mg PEG Q12 [facility] Last Admin: 09/12/18 09:07 Dose: 200 mg Losartan Potassium (Cozaar) 100 mg PEG DAILY [facility] Last Admin: 09/12/18 09:14 Dose: 100 mg Nystatin (Nystop Topical Powder) 1 applic TOP QSHIFT [facility] Last Admin: 09/12/18 09:09 Dose: 1 applic Tamsulosin HCl (Flomax) 0.4 mg PEG DAILY [facility] Last Admin: 09/12/18 09:10 Dose: 0.4 mg Valproate Sodium (Depakene Cap) 500 mg PO BID [facility] Last Admin: 09/12/18 09:06 Dose: 500 mg - Labs Labs: 09/12/18 05:25 09/12/18 05:25 PT 11.9 Seconds (9.8-13.1) 09/11/18 11:22 INR 1.0 09/11/18 11:22 APTT 34.1 Seconds (25.6-37.1) 09/11/18 11:22 Attending/Attestation - Attestation I have personally seen and examined this patient.: Yes I have fully participated in the care of the patient.: Yes I have reviewed all pertinent clinical information, including history, physical exam and plan: Yes Notes (Text): 09/12/18 16:29 Patient seen and examined with resident. Case discussed and agreed with assessment and plan.
[2018-09-12 06:26] LABS: BASO # 0.1 K/uL (0.0-0.2); EOS # 0.3 K/uL (0.0-0.7); EOS % 3.9 % (0.0-4.0); HEMOGLOBIN 11.8 g/dL (12.0-18.0); LYMPH # 2.1 K/uL (1.0-4.3); LYMPH % 24.8 % (20.0-40.0); MEAN CELL VOLUME 87.6 fl (80.0-94.0); MEAN CORPUSCULAR HEMOGLOBIN 29.4 pg (27.0-31.0); MEAN CORPUSCULAR HGB CONC 33.5 g/dL (33.0-37.0); MEAN PLATELET VOLUME 8.2 fl (7.2-11.7); MONO # 0.7 K/uL (0.0-0.8); MONO % 7.8 % (0.0-10.0); NEUT # 5.3 K/uL (1.8-7.0); NEUT % 62.5 % (50.0-75.0); RBC 4.02 Mil/uL (4.40-5.90); RED CELL DISTRIBUTION WIDTH 13.9 % (11.5-14.5); WHITE BLOOD COUNT 8.5 K/uL (4.8-10.8)
[2018-09-12 06:37] LABS: ALB/GLOB RATIO 1.2 (1.0-2.1); ALBUMIN 3.8 g/dL (3.5-5.0); ALT/SGPT 28 U/L (21-72); AST/SGOT 22 U/L (17-59); BLOOD UREA NITROGEN 10 mg/dl (9-20); CALCIUM 8.4 mg/dL (8.4-10.2); GFR NON-AFRICAN AMERICAN > 60
[2018-09-12] MEDS ORDERED: GlipiZIDE 5 mg SR Tab PO SCH (08:00)
[2018-09-12] MEDS ORDERED: Fluconazole IV 200mg/100 ml NS 100 ML IVPB SCH (09:00)
[2018-09-12] MEDS: Enoxaparin 40 mg Syringe SC SCH ×2 (09:13→10:29)
--- NOTE | 2018-09-12 11:40 | CP.PCM.CON ---
History of Present Illness - History of Present Illness History of Present Illness: Neurology Consultation Consultation Requested by Dr. Guerra Consult Reason: New onset seizure Mr. Gibson is a 52 y/o male with a PMHx of HTN, HLD, Mitral Valve Prolapse, Pneumonia, TIA, CVA (two CVAs; last one diagnosed in September 2017), and residual aphasia, dysphagia, and left hemiplegia from last CVA. Mr. Gibson was admitted to [facility] for new onset seizure that was witnessed at home by his . Per the , pt woke up yesterday and was shaking in bed, body was tense; this episode lasted approx 90 sec. She denies any trauma, fall, head injury, incontinence, biting of tongue or cheeks. She also admits that he was "very sleepy" after the episode resolved and had residual twitching to the left leg and lips. Pt is able to communicate with his hands and he can nod/shake his head in response to questions. He is able to follow commands. Noncontrast head CT was done yesterday and showed chronic changes as well as post-craniotomy changes. Pt is currently awake and alert; able to nonverbally communicate with me. ROS is u nremarkable except for the pt admits to feeling "tired." Neurology was consulted to assist in the management of this pt. Review of Systems - Constitutional Constitutional: As Per HPI - EENT Eyes: As Per HPI Ears: As Per HPI Nose/Mouth/Throat: As Per HPI - Cardiovascular Cardiovascular: As Per HPI - Respiratory Respiratory: As Per HPI - Gastrointestinal Gastrointestinal: As Per HPI - Genitourinary Genitourinary: As Per HPI - Reproductive: Male Reproductive:Male: As Per HPI - Musculoskeletal Musculoskeletal: As Per HPI - Integumentary Integumentary: As Per HPI - Neurological Neurological: As Per HPI - Psychiatric Psychiatric: As Per HPI - Endocrine Endocrine: As Per HPI - Hematologic/Lymphatic Hematologic: As Per HPI Past Patient History - Infectious Disease Hx of Infectious Diseases: None - Past Medical History & Family History Past Medical History?: Yes - Past Social History Smoking Status: Never Smoked Chewing Tobacco Use: No Cigar Use: No Occupation: unemployed Alcohol: None Drugs: Denies Home Situation {Lives}: With Family Domestic Violence: Negative - CARDIAC Hx Cardiac Disorders: Yes Hx Hypercholesterolemia: Yes Hx Hypertension: Yes Hx Mitral Valve Prolapse: Yes - PULMONARY Hx Respiratory Disorders: Yes Hx Pneumonia: Yes - NEUROLOGICAL Hx Neurological Disorder: Yes Hx Paralysis: Yes Hx Transient Ischemic Attacks (TIA): Yes - HEENT Hx HEENT Problems: Yes Other/Comment: Double/Triple vision when looking to the right. Blurry vision and pain. oculomotor nerve palsy - RENAL Hx Chronic Kidney Disease: No - ENDOCRINE/METABOLIC Hx Endocrine Disorders: Yes Hx Diabetes Insipidus: Yes Hx Diabetes Mellitus Type 2: Yes - HEMATOLOGICAL/ONCOLOGICAL Hx Blood Disorders: No Hx Human Immunodeficiency Virus (HIV): No - INTEGUMENTARY Hx Dermatological Problems: Yes (reddened sacrum) - MUSCULOSKELETAL/RHEUMATOLOGICAL Hx Musculoskeletal Disorders: Yes Hx Falls: Yes Hx Fractures: Yes - GASTROINTESTINAL Hx Gastrointestinal Disorders: Yes (Gtube) Hx Constipation: Yes - GENITOURINARY/GYNECOLOGICAL Hx Genitourinary Disorders: Yes Hx Incontinence: Yes - PSYCHIATRIC Hx Psychophysiologic Disorder: No Hx Substance Use: No - SURGICAL HISTORY Hx Surgeries: Yes Hx Arthroscopy: Yes (Bilateral Knee Twice ([id number])) Other/Comment: Cerebral intraventricular surgery (stroke). Abdominal IVC filter. Craniotomy September 2017. Tracheostomy reversal September 2017. PEG placement September 2017 - ANESTHESIA Hx Anesthesia: Yes Hx Anesthesia Reactions: No Hx Malignant Hyperthermia: No Meds Allergies/Adverse Reactions: Allergies Allergy/AdvReac Type Severity Reaction Status Date / Time No Known Allergies Allergy Verified 01/17/18 21:03 - Medications Medications: Current Medications Amlodipine Besylate (Norvasc) 10 mg PEG DAILY [facility] Last Admin: 09/12/18 09:05 Dose: 10 mg Aspirin (Ecotrin) 81 mg PO DAILY [facility] Last Admin: 09/12/18 09:14 Dose: 81 mg Atorvastatin Calcium (Lipitor) 40 mg PEG HS [facility] Clotrimazole (Lotrimin 1%) 1 applic TOP BID [facility] Last Admin: 09/11/18 19:25 Dose: 1 applic Enoxaparin Sodium (Lovenox) 40 mg SC DAILY [facility]; Protocol Last Admin: 09/12/18 10:29 Dose: Not Given Escitalopram Oxalate (Lexapro) 5 mg PEG HS [facility] Famotidine (Pepcid) 40 mg PEG HS [facility] Fluconazole (Diflucan) 200 mg PEG DAILY [facility]; Protocol Last Admin: 09/12/18 09:12 Dose: 200 mg Home Med (Desmopressin [Ddavp]) 0.1 mg PEG BID [facility] Ceftriaxone Sodium 1 gm/ (Sodium Chloride) 100 mls @ 100 mls/hr IVPB DAILY [facility]; Protocol Last Admin: 09/12/18 09:34 Dose: 100 mls/hr Labetalol HCl (Trandate) 200 mg PEG Q12 [facility] Last Admin: 09/12/18 09:07 Dose: 200 mg Losartan Potassium (Cozaar) 100 mg PEG DAILY [facility] Last Admin: 09/12/18 09:14 Dose: 100 mg Nystatin (Nystop Topical Powder) 1 applic TOP QSHIFT [facility] Last Admin: 09/12/18 09:09 Dose: 1 applic Tamsulosin HCl (Flomax) 0.4 mg PEG DAILY [facility] Last Admin: 09/12/18 09:10 Dose: 0.4 mg Valproate Sodium (Depakene Cap) 500 mg PO BID [facility] Last Admin: 09/12/18 09:06 Dose: 500 mg Physical Exam - Constitutional Appears: Well, No Acute Distress - Head Exam Head Exam: NORMAL INSPECTION, NORMOCEPHALIC - Eye Exam Eye Exam: EOMI, Normal appearance, PERRL. absent: Nystagmus Pupil Exam: NORMAL ACCOMODATION, PERRL - ENT Exam ENT Exam: Mucous Membranes Moist - Neck Exam Neck exam: Positive for: Full Rom, Normal Inspection - Respiratory Exam Respiratory Exam: NORMAL BREATHING PATTERN. absent: Respiratory Distress - Extremities Exam Extremities exam: Positive for: normal inspection. Negative for: calf ten derness, full ROM, pedal edema Additional comments: Left hemiplegia from previous CVA in 2018 - Back Exam Back exam: absent: FULL ROM - Neurological Exam Neurological exam: Alert Additional comments: Pt is aphasic from previous CVA in 2018. Able to communicate nonverbally. Follows commands. Left hemiplegia; no focal motor deficits to right side. No tremors or abnormal movements noted. No sensory deficits noted. - Psychiatric Exam Psychiatric exam: Normal Affect, Normal Mood - Skin Skin Exam: Dry, Intact, Normal Color Results - Vital Signs Recent Vital Signs: Last Vital Signs Temp 98.6 F 09/12/18 07:48 Pulse 70 09/12/18 09:14 Resp 20 09/12/18 07:48 BP 143/81 09/12/18 09:14 Pulse Ox 97 09/12/18 07:48 - Labs Result Diagrams: 09/12/18 05:25 09/12/18 05:25 Labs: Laboratory Results - last 24 hr 09/11/18 09/11/18 09/11/18 11:22 11:22 11:22 WBC 6.9 RBC 4.25 L Hgb 12.7 Hct 37.5 MCV 88.4 D MCH 29.9 MCHC 33.9 RDW 14.3 Plt Count 385 MPV 8.7 Neut % (Auto) 73.2 Lymph % (Auto) 17.5 L [place] % (Auto) 6.0 Eos % (Auto) 2.7 Baso % (Auto) 0.6 Neut # (Auto) 5.0 Lymph # (Auto) 1.2 [place] # (Auto) 0.4 Eos # (Auto) 0.2 Baso # (Auto) 0.0 PT 11.9 INR 1.0 APTT 34.1 Sodium 138 Potassium 5.1 H Chloride 103 Carbon Dioxide 24 Anion Gap 16 BUN 10 Creatinine 0.6 L Est GFR ( Amer) > 60 Est GFR (Non-Af Amer) > 60 POC Glucose (mg/dL) Random Glucose 91 Calcium 8.8 Phosphorus Magnesium Total Bilirubin 1.2 AST 39 ALT 16 L D Alkaline Phosphatase 55 Total Protein 7.7 Albumin 4.2 Globulin 3.5 Albumin/Globulin Ratio 1.2 Urine Color Urine Clarity Urine pH Ur Specific [place] Urine Protein Urine Glucose (UA) Urine Ketones Urine Blood Urine Nitrate Urine Bilirubin Urine Urobilinogen Ur Leukocyte Esterase Urine RBC (Auto) Urine WBC Clumps (Auto) Urine Microscopic WBC Amorphous Sediment Urine Bacteria 09/11/18 09/11/18 09/11/18 13:05 14:42 19:41 WBC RBC Hgb Hct MCV MCH MCHC RDW Plt Count MPV Neut % (Auto) Lymph % (Auto) [place] % (Auto) Eos % (Auto) Baso % (Auto) Neut # (Auto) Lymph # (Auto) [place] # (Auto) Eos # (Auto) Baso # (Auto) PT INR APTT Sodium Potassium Chloride Carbon Dioxide Anion Gap BUN Creatinine Est GFR ( Amer) Est GFR (Non-Af Amer) POC Glucose (mg/dL) 112 H 93 Random Glucose Calcium Phosphorus Magnesium Total Bilirubin AST ALT Alkaline Phosphatase Total Protein Albumin Globulin Albumin/Globulin Ratio Urine Color Yellow Urine Clarity Cloudy Urine pH 6.0 Ur Specific [place] 1.010 Urine Protein 30 Urine Glucose (UA) Neg Urine Ketones Negative Urine Blood Small Urine Nitrate Negative Urine Bilirubin Negative Urine Urobilinogen 0.2-1.0 Ur Leukocyte Esterase Large Urine RBC (Auto) 2 Urine WBC Clumps (Auto) Many H Urine Microscopic WBC 347 H Amorphous Sediment Moderate H Urine Bacteria Occ H 09/12/18 09/12/18 09/12/18 00:15 05:25 05:25 WBC 8.5 RBC 4.02 L Hgb 11.8 L Hct 35.2 MCV 87.6 MCH 29.4 MCHC 33.5 RDW 13.9 Plt Count 362 MPV 8.2 Neut % (Auto) 62.5 Lymph % (Auto) 24.8 [place] % (Auto) 7.8 Eos % (Auto) 3.9 Baso % (Auto) 1.0 Neut # (Auto) 5.3 Lymph # (Auto) 2.1 [place] # (Auto) 0.7 Eos # (Auto) 0.3 Baso # (Auto) 0.1 PT INR APTT Sodium 143 Potassium 3.9 Chloride 105 Carbon Dioxide 31 H Anion Gap 11 BUN 10 Creatinine 0.6 L Est GFR ( Amer) > 60 Est GFR (Non-Af Amer) > 60 POC Glucose (mg/dL) 108 Random Glucose 71 L Calcium 8.4 Phosphorus 3.5 Magnesium 2.1 Total Bilirubin 0.3 AST 22 ALT 28 Alkaline Phosphatase 73 Total Protein 6.9 Albumin 3.8 Globulin 3.1 Albumin/Globulin Ratio 1.2 Urine Color Urine Clarity Urine pH Ur Specific [place] Urine Protein Urine Glucose (UA) Urine Ketones Urine Blood Urine Nitrate Urine Bilirubin Urine Urobilinogen Ur Leukocyte Esterase Urine RBC (Auto) Urine WBC Clumps (Auto) Urine Microscopic WBC Amorphous Sediment Urine Bacteria 09/12/18 09/12/18 05:39 10:58 WBC RBC Hgb Hct MCV MCH MCHC RDW Plt Count MPV Neut % (Auto) Lymph % (Auto) [place] % (Auto) Eos % (Auto) Baso % (Auto) Neut # (Auto) Lymph # (Auto) [place] # (Auto) Eos # (Auto) Baso # (Auto) PT INR APTT Sodium Potassium Chloride Carbon Dioxide Anion Gap BUN Creatinine Est GFR ( Amer) Est GFR (Non-Af Amer) POC Glucose (mg/dL) 84 69 Random Glucose Calcium Phosphorus Magnesium Total Bilirubin AST ALT Alkaline Phosphatase Total Protein Albumin Globulin Albumin/Globulin Ratio Urine Color Urine Clarity Urine pH Ur Specific [place] Urine Protein Urine Glucose (UA) Urine Ketones Urine Blood Urine Nitrate Urine Bilirubin Urine Urobilinogen Ur Leukocyte Esterase Urine RBC (Auto) Urine WBC Clumps (Auto) Urine Microscopic WBC Amorphous Sediment Urine Bacteria Assessment & Plan (1) New onset seizure Assessment and Plan: Imaging reviewed: -CT Head (09/11/18): No intracranial mass, hemorrhage or evidence of acute infarct. High right frontal cystic encephalomalacia beneath a craniotomy. Bilateral basal ganglia infarcts with wallerian degeneration as described in the medulla and gary. Chronic white matter ischemic change. Left anterior temporal arachnoid cyst. Chronic paranasal sinusitis. -MRI brain without contrast to evaluate for acute intracranial abnormalities and for further evaluation of new onset seizure. -EEG to evaluate seizure. -Continue Valproic Acid 500 mg PO BID. -Continue seizure precautions. -Notify neuro of any acute changes in pt's condition as well as any seizure activity. Cris Myrick DNP, CRIBBER d/w Dr. Noel Status: Acute - Date & Time Date: 09/12/18 Time: 14:12
--- NOTE | 2018-09-12 17:17 | CP.PCM.CON ---
History of Present Illness - History of Present Illness History of Present Illness: 52 yo male with prior h/o CVA admitted with increased siezures. Patient has PEG in place due to dysphagia resulting from prior CVAs. Consultation requested because the gastrostomy tube material looks like it may be deteriorating and sh ould be changed. Review of Systems - Review of Systems Systems not reviewed;Unavailable: Altered Mental Status Past Patient History - Infectious Disease Hx of Infectious Diseases: None - Past Medical History & Family History Past Medical History?: Yes - Past Social History Smoking Status: Never Smoked Chewing Tobacco Use: No Cigar Use: No Occupation: unemployed Alcohol: None Drugs: Denies Home Situation {Lives}: With Family Domestic Violence: Negative - CARDIAC Hx Cardiac Disorders: Yes Hx Hypertension: Yes - PULMONARY Hx Respiratory Disorders: Yes Hx Pneumonia: Yes - NEUROLOGICAL HX Cerebrovascular Accident: Yes - HEENT Hx HEENT Problems: Yes Other/Comment: Double/Triple vision when looking to the right. Blurry vision and pain. oculomotor nerve palsy - RENAL Hx Chronic Kidney Disease: No - ENDOCRINE/METABOLIC Hx Endocrine Disorders: Yes Hx Diabetes Insipidus: Yes Hx Diabetes Mellitus Type 2: Yes - HEMATOLOGICAL/ONCOLOGICAL Hx Blood Disorders: No Hx Human Immunodeficiency Virus (HIV): No - INTEGUMENTARY Hx Dermatological Problems: Yes (reddened sacrum) - MUSCULOSKELETAL/RHEUMATOLOGICAL Hx Musculoskeletal Disorders: Yes Hx Falls: Yes Hx Fractures: Yes - GASTROINTESTINAL Hx Gastrointestinal Disorders: Yes (Gtube) Hx Constipation: Yes - GENITOURINARY/GYNECOLOGICAL Hx Genitourinary Disorders: Yes Hx Incontinence: Yes - PSYCHIATRIC Hx Psychophysiologic Disorder: No Hx Substance Use: No - SURGICAL HISTORY Hx Surgeries: Yes Hx Arthroscopy: Yes (Bilateral Knee Twice ([id number])) Other/Comment: Cerebral intraventricular surgery (stroke). Abdominal IVC filter. Craniotomy September 2017. Tracheostomy reversal September 2017. PEG placement September 2017 - ANESTHESIA Hx Anesthesia: Yes Hx Anesthesia Reactions: No Hx Malignant Hyperthermia: No Meds Allergies/Adverse Reactions: Allergies Allergy/AdvReac Type Severity Reaction Status Date / Time No Known Allergies Allergy Verified 01/17/18 21:03 - Medications Medications: Current Medications Amlodipine Besylate (Norvasc) 10 mg PEG DAILY [facility] Last Admin: 09/12/18 09:05 Dose: 10 mg Aspirin (Ecotrin) 81 mg PO DAILY [facility] Last Admin: 09/12/18 09:14 Dose: 81 mg Atorvastatin Calcium (Lipitor) 40 mg PEG HS [facility] Clotrimazole (Lotrimin 1%) 1 applic TOP BID [facility] Last Admin: 09/12/18 14:49 Dose: Not Given Enoxaparin Sodium (Lovenox) 40 mg SC DAILY [facility]; Protocol Last Admin: 09/12/18 10:29 Dose: Not Given Escitalopram Oxalate (Lexapro) 5 mg PEG HS [facility] Famotidine (Pepcid) 40 mg PEG HS [facility] Fluconazole (Diflucan) 200 mg PEG DAILY [facility]; Protocol Last Admin: 09/12/18 09:12 Dose: 200 mg Home Med (Desmopressin [Ddavp]) 0.1 mg PEG BID [facility] Ceftriaxone Sodium 1 gm/ (Sodium Chloride) 100 mls @ 100 mls/hr IVPB DAILY [facility]; Protocol Last Admin: 09/12/18 09:34 Dose: 100 mls/hr Labetalol HCl (Trandate) 200 mg PEG Q12 [facility] Last Admin: 09/12/18 09:07 Dose: 200 mg Losartan Potassium (Cozaar) 100 mg PEG DAILY [facility] Last Admin: 09/12/18 09:14 Dose: 100 mg Nystatin (Nystop Topical Powder) 1 applic TOP QSHIFT [facility] Last Admin: 09/12/18 09:09 Dose: 1 applic Tamsulosin HCl (Flomax) 0.4 mg PEG DAILY [facility] Last Admin: 09/12/18 09:10 Dose: 0.4 mg Valproate Sodium (Depakene Cap) 500 mg PO BID [facility] Last Admin: 09/12/18 09:06 Dose: 500 mg Physical Exam - Constitutional Appears: No Acute Distress - Head Exam Head Exam: NORMOCEPHALIC - Eye Exam Eye Exam: Normal appearance - ENT Exam ENT Exam: Normal Exam - Neck Exam Neck exam: Positive for: Normal Inspection - Respiratory Exam Respiratory Exam: Clear to Auscultation Bilateral - Cardiovascular Exam Cardiovascular Exam: REGULAR RHYTHM - GI/Abdominal Exam GI & Abdominal Exam: Normal Bowel Sounds, Soft. absent: Tenderness - Extremities Exam Extremities exam: Positive for: normal inspection Results - Vital Signs Recent Vital Signs: Last Vital Signs Temp 98.2 F 09/12/18 16:25 Pulse 73 09/12/18 16:25 Resp 16 09/12/18 16:25 BP 143/83 09/12/18 16:25 Pulse Ox 97 09/12/18 16:25 - Labs Result Diagrams: 09/12/18 05:25 09/12/18 05:25 Labs: Laboratory Results - last 24 hr 09/11/18 09/12/18 09/12/18 19:41 00:15 05:25 WBC RBC Hgb Hct MCV MCH MCHC RDW Plt Count MPV Neut % (Auto) Lymph % (Auto) [place] % (Auto) Eos % (Auto) Baso % (Auto) Neut # (Auto) Lymph # (Auto) [place] # (Auto) Eos # (Auto) Baso # (Auto) Sodium 143 Potassium 3.9 Chloride 105 Carbon Dioxide 31 H Anion Gap 11 BUN 10 Creatinine 0.6 L Est GFR ( Amer) > 60 Est GFR (Non-Af Amer) > 60 POC Glucose (mg/dL) 93 108 Random Glucose 71 L Calcium 8.4 Phosphorus 3.5 Magnesium 2.1 Total Bilirubin 0.3 AST 22 ALT 28 Alkaline Phosphatase 73 Total Protein 6.9 Albumin 3.8 Globulin 3.1 Albumin/Globulin Ratio 1.2 09/12/18 09/12/18 09/12/18 05:25 05:39 10:58 WBC 8.5 RBC 4.02 L Hgb 11.8 L Hct 35.2 MCV 87.6 MCH 29.4 MCHC 33.5 RDW 13.9 Plt Count 362 MPV 8.2 Neut % (Auto) 62.5 Lymph % (Auto) 24.8 [place] % (Auto) 7.8 Eos % (Auto) 3.9 Baso % (Auto) 1.0 Neut # (Auto) 5.3 Lymph # (Auto) 2.1 [place] # (Auto) 0.7 Eos # (Auto) 0.3 Baso # (Auto) 0.1 Sodium Potassium Chloride Carbon Dioxide Anion Gap BUN Creatinine Est GFR ( Amer) Est GFR (Non-Af Amer) POC Glucose (mg/dL) 84 69 Random Glucose Calcium Phosphorus Magnesium Total Bilirubin AST ALT Alkaline Phosphatase Total Protein Albumin Globulin Albumin/Globulin Ratio 09/12/18 16:11 WBC RBC Hgb Hct MCV MCH MCHC RDW Plt Count MPV Neut % (Auto) Lymph % (Auto) [place] % (Auto) Eos % (Auto) Baso % (Auto) Neut # (Auto) Lymph # (Auto) [place] # (Auto) Eos # (Auto) Baso # (Auto) Sodium Potassium Chloride Carbon Dioxide Anion Gap BUN Creatinine Est GFR ( Amer) Est GFR (Non-Af Amer) POC Glucose (mg/dL) 102 Random Glucose Calcium Phosphorus Magnesium Total Bilirubin AST ALT Alkaline Phosphatase Total Protein Albumin Globulin Albumin/Globulin Ratio Assessment & Plan (1) PEG tube malfunction Assessment and Plan: Will replace PEG at bedside over the next day or two. Status: Acute
--- NOTE | 2018-09-12 18:11 | CP.PCM.CON ---
History of Present Illness - History of Present Illness History of Present Illness: UROLOGY consult dictated. Urine retention with snf daniels drainage. At this time he is on routine cathater change . family is aware of his scheduled change of daniels and would continue that schedule Past Patient History - Infectious Disease Hx of Infectious Diseases: None - Past Medical History & Family History Past Medical History?: Yes - Past Social History Smoking Status: Never Smoked Chewing Tobacco Use: No Cigar Use: No Occupation: unemployed Alcohol: None Drugs: Denies Home Situation {Lives}: With Family Domestic Violence: Negative - CARDIAC Hx Cardiac Disorders: Yes Hx Hypertension: Yes - PULMONARY Hx Respiratory Disorders: Yes Hx Pneumonia: Yes - NEUROLOGICAL HX Cerebrovascular Accident: Yes - HEENT Hx HEENT Problems: Yes Other/Comment: Double/Triple vision when looking to the right. Blurry vision and pain. oculomotor nerve palsy - RENAL Hx Chronic Kidney Disease: No - ENDOCRINE/METABOLIC Hx Endocrine Disorders: Yes Hx Diabetes Insipidus: Yes Hx Diabetes Mellitus Type 2: Yes - HEMATOLOGICAL/ONCOLOGICAL Hx Blood Disorders: No Hx Human Immunodeficiency Virus (HIV): No - INTEGUMENTARY Hx Dermatological Problems: Yes (reddened sacrum) - MUSCULOSKELETAL/RHEUMATOLOGICAL Hx Musculoskeletal Disorders: Yes Hx Falls: Yes Hx Fractures: Yes - GASTROINTESTINAL Hx Gastrointestinal Disorders: Yes (Gtube) Hx Constipation: Yes - GENITOURINARY/GYNECOLOGICAL Hx Genitourinary Disorders: Yes Hx Incontinence: Yes - PSYCHIATRIC Hx Psychophysiologic Disorder: No Hx Substance Use: No - SURGICAL HISTORY Hx Surgeries: Yes Hx Arthroscopy: Yes (Bilateral Knee Twice ([id number])) Other/Comment: Cerebral intraventricular surgery (stroke). Abdominal IVC filter. Craniotomy September 2017. Tracheostomy reversal September 2017. PEG placement September 2017 - ANESTHESIA Hx Anesthesia: Yes Hx Anesthesia Reactions: No Hx Malignant Hyperthermia: No Meds Allergies/Adverse Reactions: Allergies Allergy/AdvReac Type Severity Reaction Status Date / Time No Known Allergies Allergy Verified 01/17/18 21:03 - Medications Medications: Current Medications Amlodipine Besylate (Norvasc) 10 mg PEG DAILY [facility] Last Admin: 09/12/18 09:05 Dose: 10 mg Aspirin (Ecotrin) 81 mg PO DAILY [facility] Last Admin: 09/12/18 09:14 Dose: 81 mg Atorvastatin Calcium (Lipitor) 40 mg PEG HS [facility] Clotrimazole (Lotrimin 1%) 1 applic TOP BID [facility] Last Admin: 09/12/18 17:59 Dose: Not Given Enoxaparin Sodium (Lovenox) 40 mg SC DAILY [facility]; Protocol Last Admin: 09/12/18 10:29 Dose: Not Given Escitalopram Oxalate (Lexapro) 5 mg PEG HS [facility] Famotidine (Pepcid) 40 mg PEG HS [facility] Fluconazole (Diflucan) 200 mg PEG DAILY [facility]; Protocol Last Admin: 09/12/18 09:12 Dose: 200 mg Home Med (Desmopressin [Ddavp]) 0.1 mg PEG BID [facility] Ceftriaxone Sodium 1 gm/ (Sodium Chloride) 100 mls @ 100 mls/hr IVPB DAILY [facility]; Protocol Last Admin: 09/12/18 09:34 Dose: 100 mls/hr Labetalol HCl (Trandate) 200 mg PEG Q12 [facility] Last Admin: 09/12/18 09:07 Dose: 200 mg Losartan Potassium (Cozaar) 100 mg PEG DAILY [facility] Last Admin: 09/12/18 09:14 Dose: 100 mg Nystatin (Nystop Topical Powder) 1 applic TOP QSHIFT [facility] Last Admin: 09/12/18 09:09 Dose: 1 applic Tamsulosin HCl (Flomax) 0.4 mg PEG DAILY [facility] Last Admin: 09/12/18 09:10 Dose: 0.4 mg Valproate Sodium (Depakene Cap) 500 mg PO BID [facility] Last Admin: 09/12/18 17:58 Dose: 500 mg Results - Vital Signs Recent Vital Signs: Last Vital Signs Temp 98.2 F 09/12/18 16:25 Pulse 73 09/12/18 16:25 Resp 16 09/12/18 16:25 BP 143/83 09/12/18 16:25 Pulse Ox 97 09/12/18 16:25 - Labs Result Diagrams: 09/12/18 05:25 09/12/18 05:25 Labs: Laboratory Results - last 24 hr 09/11/18 09/12/18 09/12/18 19:41 00:15 05:25 WBC RBC Hgb Hct MCV MCH MCHC RDW Plt Count MPV Neut % (Auto) Lymph % (Auto) [place] % (Auto) Eos % (Auto) Baso % (Auto) Neut # (Auto) Lymph # (Auto) [place] # (Auto) Eos # (Auto) Baso # (Auto) Sodium 143 Potassium 3.9 Chloride 105 Carbon Dioxide 31 H Anion Gap 11 BUN 10 Creatinine 0.6 L Est GFR ( Amer) > 60 Est GFR (Non-Af Amer) > 60 POC Glucose (mg/dL) 93 108 Random Glucose 71 L Calcium 8.4 Phosphorus 3.5 Magnesium 2.1 Total Bilirubin 0.3 AST 22 ALT 28 Alkaline Phosphatase 73 Total Protein 6.9 Albumin 3.8 Globulin 3.1 Albumin/Globulin Ratio 1.2 09/12/18 09/12/18 09/12/18 05:25 05:39 10:58 WBC 8.5 RBC 4.02 L Hgb 11.8 L Hct 35.2 MCV 87.6 MCH 29.4 MCHC 33.5 RDW 13.9 Plt Count 362 MPV 8.2 Neut % (Auto) 62.5 Lymph % (Auto) 24.8 [place] % (Auto) 7.8 Eos % (Auto) 3.9 Baso % (Auto) 1.0 Neut # (Auto) 5.3 Lymph # (Auto) 2.1 [place] # (Auto) 0.7 Eos # (Auto) 0.3 Baso # (Auto) 0.1 Sodium Potassium Chloride Carbon Dioxide Anion Gap BUN Creatinine Est GFR ( Amer) Est GFR (Non-Af Amer) POC Glucose (mg/dL) 84 69 Random Glucose Calcium Phosphorus Magnesium Total Bilirubin AST ALT Alkaline Phosphatase Total Protein Albumin Globulin Albumin/Globulin Ratio 09/12/18 16:11 WBC RBC Hgb Hct MCV MCH MCHC RDW Plt Count MPV Neut % (Auto) Lymph % (Auto) [place] % (Auto) Eos % (Auto) Baso % (Auto) Neut # (Auto) Lymph # (Auto) [place] # (Auto) Eos # (Auto) Baso # (Auto) Sodium Potassium Chloride Carbon Dioxide Anion Gap BUN Creatinine Est GFR ( Amer) Est GFR (Non-Af Amer) POC Glucose (mg/dL) 102 Random Glucose Calcium Phosphorus Magnesium Total Bilirubin AST ALT Alkaline Phosphatase Total Protein Albumin Globulin Albumin/Globulin Ratio
[2018-09-12] MEDS: Valproic Acid 250 mg/5 ml UD Cup PEG SCH (18:51)
[2018-09-12] MEDS: Famotidine 40 MG/5 ML PEG SCH (21:37)
--- NOTE | 2018-09-13 03:39 | CON ---
DATE: 09/12/2018 CONSULT REPORT HISTORY OF PRESENT ILLNESS: This is a 52-year-old male patient, status post CVA, has had a long-term indwelling Gomez catheter for control of urine. The patient has had this catheter in for over two years. At this point, he has help at home to change the Gomez catheter on a continued basis. In the beginning, I had instructed the daughter on how to catheterize and clean the Gomez catheter but since then she had contacted an agency who is now coming in and changing the catheter; because of his inability to ambulate adequately, it has been quite a long time since I have seen him in person. At this time, we just called for routine consult because of Gomez catheter. Looking at his labs right now showing a BUN of 10 and creatinine of 0.6. He has a white blood cell count of 8.5. The urinalysis done shows large leukocyte esterase, occasional bacteria, and small occult blood. All of this is very common to see with watermelon inspector indwelling Gomez catheter and not really something that needs to be treated continually. The patient has a temperature at this time of 98.2, blood pressure is 143/83. At this time, he was admitted for observation for seizure disorder but urologically his condition is stable. I see that he is on ceftriaxone at this time intravenously but for purposes of UTI, yes they can use it; however, I do not think it will make a big difference in the long run because with chronic Gomez catheters, they were almost colonization of the bladder and unless there is active fever or some clinical sign, pointing to a different level of urinary tract infection that I would probably just monitor it conservatively. At this point, there is no suggestion to do anything different other than if he is discharged in the near future when he goes home to continue his routine catheter hygiene and changes. Fernando Shah MD
[2018-09-13 05:38] LABS: BASO # 0.1 K/uL (0.0-0.2); BASO % 0.8 % (0.0-2.0); EOS # 0.3 K/uL (0.0-0.7); EOS % 4.1 % (0.0-4.0); HEMOGLOBIN 12.2 g/dL (12.0-18.0); LYMPH # 2.7 K/uL (1.0-4.3); MEAN CELL VOLUME 87.8 fl (80.0-94.0); MEAN CORPUSCULAR HEMOGLOBIN 29.6 pg (27.0-31.0); MEAN CORPUSCULAR HGB CONC 33.7 g/dL (33.0-37.0); MEAN PLATELET VOLUME 8.3 fl (7.2-11.7); MONO # 0.7 K/uL (0.0-0.8); MONO % 8.7 % (0.0-10.0); NEUT # 4.4 K/uL (1.8-7.0); NEUT % 53.4 % (50.0-75.0); NRBC % 0.1 % (0.0-0.0); RBC 4.11 Mil/uL (4.40-5.90); RED CELL DISTRIBUTION WIDTH 14.1 % (11.5-14.5); WHITE BLOOD COUNT 8.2 K/uL (4.8-10.8)
[2018-09-13 05:45] LABS: ALB/GLOB RATIO 1.2 (1.0-2.1); ALBUMIN 3.8 g/dL (3.5-5.0); ALT/SGPT 28 U/L (21-72); AST/SGOT 24 U/L (17-59); BLOOD UREA NITROGEN 9 mg/dl (9-20); CALCIUM 8.5 mg/dL (8.4-10.2); GFR NON-AFRICAN AMERICAN > 60
[2018-09-13] MEDS: Enoxaparin 40 mg Syringe SC SCH (09:58)
[2018-09-13] MEDS: Valproic Acid 250 mg/5 ml UD Cup PEG SCH (09:59)
--- NOTE | 2018-09-13 09:59 | PCM.EEG ---
Electroencephalogram Report - Electroencephalogram Report Procedure Date: 09/12/18 Medication: ASA, Lipitor, Depakote Interpretation: Technical Information: This was a 16-channel EEG, 1-channel EKG , performed using an [employer] machine., electrodes were applied according to the 10/20 international placement system, impedances were less than 5 K Ohm. Start; 14;27 End; 15;12 Total; 45 min. Indication; seizures FINDINGS; During active states, the EEG was characterized by 10-20 Hz, 15-30 uV activity bilaterally in fronto-central regions, with slightly slower frequencies and higher amplitudes emerging on the right. Resting wakefulness was characterized by a symmetric posterior dominant rhythm of 8-9 Hz, 30-50 uV, which was reactive to eye opening and closing, with greater amplitudes on the right. Drowsiness (14;51) was associated with slow roving eye movements, slowing and fragmentation of the posterior dominant rhythm, and bilateral 4-7 Hz, 40-70 uV theta activity, sometimes with a shifting predominanc. Photic stimulation was performed and there were no changes in the record. Throughout the recording, there was evidence of continuous right frontal/central l 3-6 Hz, 30-75 uV slowing. Impression: The findings are in keeping with a focal cortical abnormality involving the right frontal/central area, in keeping with a structural abnormality in the same area. No seizures, not in status epilepticus.
--- NOTE | 2018-09-13 10:41 | CP.PCM.PN ---
Subjective - Date & Time of Evaluation Date of Evaluation: 09/13/18 Time of Evaluation: 10:40 - Subjective Subjective: Neuro Follow Up Note: Mr. Gibson was evaluated this morning at bedside with present. Pt is currently awake and alert; able to nonverbally communicate with me. Per pt's , she noticed this morning that his left leg is twitching on/off. While I was with him he did have 3 episodes where his left leg jerked. Pt denies to me h/a, dizziness, visual changes, chest pain, abd pain. Pt's also states that she would like his peg tube changed 2/2 discoloration in the tubing. Objective - Vital Signs/Intake and Output Vital Signs (last 24 hours): Temp Pulse Resp BP Pulse Ox 98.4 F 72 18 155/82 H 97 09/13/18 07:57 09/13/18 10:03 09/13/18 07:57 09/13/18 10:03 09/13/18 07:57 Intake and Output: 09/13/18 09/13/18 06:59 18:59 Intake Total 60 Output Total 1800 Balance -1740 - Medications Medications: Current Medications Amlodipine Besylate (Norvasc) 10 mg PEG DAILY [facility] Last Admin: 09/13/18 10:03 Dose: 10 mg Aspirin (Ecotrin) 81 mg PO DAILY [facility] Last Admin: 09/13/18 10:00 Dose: 81 mg Atorvastatin Calcium (Lipitor) 40 mg PEG HS [facility] Last Admin: 09/12/18 21:36 Dose: 40 mg Enoxaparin Sodium (Lovenox) 40 mg SC DAILY [facility]; Protocol Last Admin: 09/13/18 09:58 Dose: 40 mg Escitalopram Oxalate (Lexapro) 5 mg PEG HS [facility] Last Admin: 09/12/18 21:36 Dose: 5 mg Famotidine (Pepcid) 40 mg PEG HS [facility] [place] Last Admin: 09/12/18 21:37 Dose: 40 mg Fluconazole (Diflucan) 200 mg PEG DAILY [facility] [place]; Protocol Last Admin: 09/13/18 10:00 Dose: 200 mg Home Med (Desmopressin [Ddavp]) 0.1 mg PEG BID [facility] Ceftriaxone Sodium 1 gm/ (Sodium Chloride) 100 mls @ 100 mls/hr IVPB DAILY [facility] [place]; Protocol Last Admin: 09/13/18 09:57 Dose: 100 mls/hr Labetalol HCl (Trandate) 200 mg PEG Q12 [facility] [place] Last Admin: 09/13/18 10:09 Dose: 200 mg Losartan Potassium (Cozaar) 100 mg PEG DAILY [facility] [place] Last Admin: 09/13/18 10:02 Dose: 100 mg Nystatin (Nystop Topical Powder) 1 applic TOP QSHIFT [facility] [place] Last Admin: 09/13/18 10:12 Dose: 1 applic Tamsulosin HCl (Flomax) 0.4 mg PEG DAILY [facility] Last Admin: 09/13/18 10:03 Dose: 0.4 mg Valproate Sodium (Depakene Oral Soln) 500 mg PEG BID [facility] Last Admin: 09/13/18 09:59 Dose: 500 mg - Labs Labs: 09/13/18 04:35 09/13/18 04:35 PT 11.9 Seconds (9.8-13.1) 09/11/18 11:22 INR 1.0 09/11/18 11:22 APTT 34.1 Seconds (25.6-37.1) 09/11/18 11:22 - Constitutional Appears: Well, Non-toxic, No Acute Distress - Head Exam Head Exam: ATRAUMATIC, NORMAL INSPECTION, NORMOCEPHALIC - Eye Exam Eye Exam: EOMI, Normal appearance, PERRL Pupil Exam: NORMAL ACCOMODATION, PERRL - ENT Exam ENT Exam: Mucous Membranes Moist - Neck Exam Neck Exam: Normal Inspection - Respiratory Exam Respiratory Exam: NORMAL BREATHING PATTERN - GI/Abdominal Exam GI & Abdominal Exam: Soft. absent: Distended, Tenderness Additional comments: peg - Extremities Exam Extremities Exam: absent: Full ROM Additional comments: Left hemiplegia from previous CVA in 2018 - Neurological Exam Neurological Exam: Alert, Awake Neuro motor strength exam: Left Upper Extremity: 0, Right Upper Extremity: 5, Left Lower Extremity: 0, Right Lower Extremity: 5 Additional comments: Pt is aphasic from previous CVA in 2018. Able to communicate nonverbally. Follows commands. Left hemiplegia; no focal motor deficits to right side. Approx 3 LLE jerking movements while I was with the pt. No sensory deficits noted. - Psychiatric Exam Psychiatric exam: Normal Affect, Normal Mood - Skin Skin Exam: Normal Color Assessment and Plan (1) New onset seizure Assessment & Plan: Imaging reviewed: -EEG (09/12/08): Impression: The findings are in keeping with a focal cortical abnormality involving the right frontal/central area, in keeping with a structural abnormality in the same area. No seizures, not in status epilepticus. -CT Head (09/11/18): No intracranial mass, hemorrhage or evidence of acute infarct. High right frontal cystic encephalomalacia beneath a craniotomy. Bilateral basal ganglia infarcts with wallerian degeneration as described in the medulla and gary. Chronic white matter ischemic change. Left anterior temporal arachnoid cyst. Chronic paranasal sinusitis. -MRI brain without contrast done to evaluate for acute intracranial abnormalities and for further evaluation of new onset seizure--pending official report from radiologist. There is a a questionable area to the right frontal/central area where the pt may have had a new stroke vs residual from previous CVA vs artifact from the MRI. I have reviewed imaging with Dr. Noel; we will decide after the MRI is reported. -Check Valproic Acid level now. -Load with Valproic 1,000 mg IV x1 dose followed by 750 mg BID---please continue this dose at home. -Continue seizure precautions. -Notify neuro of any acute changes in pt's condition. Cris Myrick DNP, [employer] P[employer] SUPERVISOR d/w Dr. Noel Status: Acute
[2018-09-13] MEDS ORDERED: Valproate 1,000 MG in Sodium Chloride 0.9% 100 ML IVPB ONE (12:01)
--- NOTE | 2018-09-13 13:06 | CP.PCM.PN ---
<Sloan Waggoner - Last Filed: 09/13/18 13:10> Subjective - Date & Time of Evaluation Date of Evaluation: 09/13/18 Time of Evaluation: 07:00 - Subjective Subjective: Patient seen and examined at bedside today. Patient complaining of penile pain. Patient also was having muscle twitch in morning which have resolved by its own. Otherwise patient have no complains. Objective - Vital Signs/Intake and Output Vital Signs (last 24 hours): Temp Pulse Resp BP Pulse Ox 99.3 F 76 18 157/85 H 96 09/13/18 11:49 09/13/18 11:49 09/13/18 11:49 09/13/18 11:49 09/13/18 11:49 Intake and Output: 09/13/18 09/13/18 06:59 18:59 Intake Total 60 Output Total 1800 Balance -1740 - Medications Medications: Current Medications Amlodipine Besylate (Norvasc) 10 mg PEG DAILY [facility] Last Admin: 09/13/18 10:03 Dose: 10 mg Aspirin (Ecotrin) 81 mg PO DAILY [facility] Last Admin: 09/13/18 10:00 Dose: 81 mg Atorvastatin Calcium (Lipitor) 40 mg PEG HS [facility] Last Admin: 09/12/18 21:36 Dose: 40 mg Enoxaparin Sodium (Lovenox) 40 mg SC DAILY [facility]; Protocol Last Admin: 09/13/18 09:58 Dose: 40 mg Escitalopram Oxalate (Lexapro) 5 mg PEG HS [facility] Last Admin: 09/12/18 21:36 Dose: 5 mg Famotidine (Pepcid) 40 mg PEG HS [facility] Last Admin: 09/12/18 21:37 Dose: 40 mg Fluconazole (Diflucan) 200 mg PEG DAILY [facility]; Protocol Last Admin: 09/13/18 10:00 Dose: 200 mg Home Med (Desmopressin [Ddavp]) 0.1 mg PEG BID [facility] Ceftriaxone Sodium 1 gm/ (Sodium Chloride) 100 mls @ 100 mls/hr IVPB DAILY [facility]; Protocol Last Admin: 09/13/18 09:57 Dose: 100 mls/hr Labetalol HCl (Trandate) 200 mg PEG Q12 [facility] Last Admin: 09/13/18 10:09 Dose: 200 mg Losartan Potassium (Cozaar) 100 mg PEG DAILY [facility] Last Admin: 09/13/18 10:02 Dose: 100 mg Nystatin (Nystop Topical Powder) 1 applic TOP QSHIFT [facility] Last Admin: 09/13/18 10:12 Dose: 1 applic Tamsulosin HCl (Flomax) 0.4 mg PEG DAILY [facility] Last Admin: 09/13/18 10:03 Dose: 0.4 mg Valproate Sodium (Depakene Oral Syrup) 750 mg PEG BID [facility] - Labs Labs: 09/13/18 04:35 09/13/18 04:35 PT 11.9 Seconds (9.8-13.1) 09/11/18 11:22 INR 1.0 09/11/18 11:22 APTT 34.1 Seconds (25.6-37.1) 09/11/18 11:22 - Constitutional Appears: Well, Non-toxic, No Acute Distress - Head Exam Head Exam: ATRAUMATIC, NORMAL INSPECTION, NORMOCEPHALIC - Eye Exam Eye Exam: EOMI, Normal appearance, PERRL Pupil Exam: NORMAL ACCOMODATION, PERRL - ENT Exam ENT Exam: Mucous Membranes Moist, Normal Exam - Neck Exam Neck Exam: Full ROM, Normal Inspection - Respiratory Exam Respiratory Exam: Clear to Ausculation Bilateral, NORMAL BREATHING PATTERN - Cardiovascular Exam Cardiovascular Exam: REGULAR RHYTHM, +S1, Murmur Additional comments: systolic - GI/Abdominal Exam GI & Abdominal Exam: Soft, Normal Bowel Sounds Additional comments: PEG tube dry - Exam Additional comments: Union Organizer in room Uncircumcised penile, with white discoloration around the gland, possible to the cream. Gland nontender, no erythema. Foreskin retractable. - Neurological Exam Neurological Exam: Alert, Awake - Psychiatric Exam Psychiatric exam: Normal Affect, Normal Mood - Skin Skin Exam: Normal Color, Rash Assessment and Plan - Assessment and Plan (Free Text) Assessment: 52 yo male HTN, Hypercholesterolemia, Hyperlipidemia, Mitral Valve Prolapse, TIA, 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 Admitted due to new onset of seizure CT scan No intracranial mass, hemorrhage or evidence of acute infarct. High right frontal cystic encephalomalacia beneath a craniotomy. Bilateral basal ganglia infarcts with wallerian degeneration as described in the medulla and gary. Chronic white matter ischemic change. Left anterior temporal arachnoid cyst. Chronic paranasal sinusitis. Electroencephalogram Report The findings are in keeping with a focal cortical abnormality involving the right frontal/central area, in keeping with a structural abnormality in the same area. No seizures, not in status epileptics. New onset of seizure with hx of CVA Currently stable, no seizure, no in status epilepticus As per EEG Patient have dysphagia, No trauma or fall S/P loading dose of Valproate On depakote [address] Roldan is on case MRI pending result, Will proceed depend on MRI result follow up valproic acid level follow up Neuro recommendation F/U CBC/CMP + Culture in Urine due to chronic Gomez cath Will DC abx as colonization most likely due to chronic cath. Dr. Shah consulted, will continue following his recommendation On chronic Gomez D/C Rocephin Patient is asymptomatic Urine culture Gram negative rods , + gram positive cocci Penile pain Possible due to Gomez will clean, readjust possible change Gomez cath PEG tube Patient on PEG TUBE for medication use only Dr Call will replace tube Bed Randhawa Reposition patient HTN Chronic Continue home medication DM Chronic Continue home medication skin Sharla PO Fluconazole wound care in case Diet Dysphagia thin liquid Medication via PEG tube only DVT Lovenox 40 sc <Mason Reagan D - Last Filed: 09/13/18 13:28> Objective - Vital Signs/Intake and Output Vital Signs (last 24 hours): Temp Pulse Resp BP Pulse Ox 99.3 F 76 18 157/85 H 96 09/13/18 11:49 09/13/18 11:49 09/13/18 11:49 09/13/18 11:49 09/13/18 11:49 Intake and Output: 09/13/18 09/13/18 06:59 18:59 Intake Total 60 Output Total 1800 Balance -1740 - Medications Medications: Current Medications Amlodipine Besylate (Norvasc) 10 mg PEG DAILY [facility] Last Admin: 09/13/18 10:03 Dose: 10 mg Aspirin (Ecotrin) 81 mg PO DAILY [facility] Last Admin: 09/13/18 10:00 Dose: 81 mg Atorvastatin Calcium (Lipitor) 40 mg PEG HS [facility] Last Admin: 09/12/18 21:36 Dose: 40 mg Enoxaparin Sodium (Lovenox) 40 mg SC DAILY [facility]; Protocol Last Admin: 09/13/18 09:58 Dose: 40 mg Escitalopram Oxalate (Lexapro) 5 mg PEG HS [facility] Last Admin: 09/12/18 21:36 Dose: 5 mg Famotidine (Pepcid) 40 mg PEG HS [facility] Last Admin: 09/12/18 21:37 Dose: 40 mg Fluconazole (Diflucan) 200 mg PEG DAILY [facility]; Protocol Last Admin: 09/13/18 10:00 Dose: 200 mg Home Med (Desmopressin [Ddavp]) 0.1 mg PEG BID [facility] Labetalol HCl (Trandate) 200 mg PEG Q12 [facility] Last Admin: 09/13/18 10:09 Dose: 200 mg Losartan Potassium (Cozaar) 100 mg PEG DAILY [facility] Last Admin: 09/13/18 10:02 Dose: 100 mg Nystatin (Nystop Topical Powder) 1 applic TOP QSHIFT [facility] Last Admin: 09/13/18 10:12 Dose: 1 applic Tamsulosin HCl (Flomax) 0.4 mg PEG DAILY [facility] Last Admin: 09/13/18 10:03 Dose: 0.4 mg Valproate Sodium (Depakene Oral Syrup) 750 mg PEG BID [facility] - Labs Labs: 09/13/18 04:35 09/13/18 04:35 PT 11.9 Seconds (9.8-13.1) 09/11/18 11:22 INR 1.0 09/11/18 11:22 APTT 34.1 Seconds (25.6-37.1) 09/11/18 11:22 Attending/Attestation - Attestation I have personally seen and examined this patient.: Yes I have fully participated in the care of the patient.: Yes I have reviewed all pertinent clinical information, including history, physical exam and plan: Yes Notes (Text): 09/13/18 13:24 Patient seen and examined with resident. Case discussed and agreed with assessment. Neuro consult recommended continued evaluation pending official report of MRI.
[2018-09-13] MEDS ORDERED: Chlorhexidine Gluconate 1 APPL/PKT TP ONE (13:59)
--- NOTE | 2018-09-13 14:00 | MRI ---
Date of service: 09/13/2018 PROCEDURE: MRI BRAIN WITHOUT CONTRAST HISTORY: new onset seizure; h/o CVA COMPARISON: MRI 01/19/2018 TECHNIQUE: Multiplanar, multisequence MR images of the brain were obtained without intravenous contrast enhancement. FINDINGS: HEMORRHAGE: There is an area of encephalomalacia and hemosiderin deposition in the right thalamus measuring 2 x 2.7 cm. There is atrophy with enlargement of the right lateral ventricle. Microvascular changes are seen in the periventricular white matter. There is also minimal hemosiderin deposition and encephalomalacia in the left basal ganglia. Abnormal signal intensity is seen in the right mid brain cerebral peduncle consistent with axonal degeneration. The findings are not significantly changed DWI: No evidence of an acute or early subacute infarction. BRAIN PARENCHYMA: As above VENTRICLES: Enlargement of the right lateral ventricle on the basis of atrophy. CRANIUM: Unremarkable. ORBITS: Grossly unremarkable. PARANASAL SINUSES/MASTOIDS: Clear VASCULAR SYSTEM: Skull base flow voids intact. OTHER FINDINGS: None. IMPRESSION: There is an area of encephalomalacia and hemosiderin deposition in the right thalamus measuring 2 x 2.7 cm. There is atrophy with enlargement of the right lateral ventricle. Microvascular changes are seen in the periventricular white matter. There is also minimal hemosiderin deposition and encephalomalacia in the left basal ganglia. Abnormal signal intensity is seen in the right mid brain cerebral peduncle consistent with axonal degeneration. The findings are not significantly changed
[2018-09-13] MEDS ORDERED: Bacitracin 500 Units/gm Oint Foilpak UD TOP ONE (14:30)
--- NOTE | 2018-09-13 15:43 | CP.PCM.PN ---
Subjective - Date & Time of Evaluation Date of Evaluation: 09/13/18 Time of Evaluation: 15:38 - Subjective Subjective: F/u for dysfunctional PEG. So far no leakage though tube is blackening c/w deterioration Objective - Vital Signs/Intake and Output Vital Signs (last 24 hours): Temp Pulse Resp BP Pulse Ox 99.3 F 76 18 157/85 H 96 09/13/18 11:49 09/13/18 11:49 09/13/18 11:49 09/13/18 11:49 09/13/18 11:49 Intake and Output: 09/13/18 09/13/18 06:59 18:59 Intake Total 60 Output Total 1800 Balance -1740 - Medications Medications: Current Medications Amlodipine Besylate (Norvasc) 10 mg PEG DAILY [facility] Last Admin: 09/13/18 10:03 Dose: 10 mg Aspirin (Ecotrin) 81 mg PO DAILY [facility] Last Admin: 09/13/18 10:00 Dose: 81 mg Atorvastatin Calcium (Lipitor) 40 mg PEG HS [facility] Last Admin: 09/12/18 21:36 Dose: 40 mg Enoxaparin Sodium (Lovenox) 40 mg SC DAILY [facility]; Protocol Last Admin: 09/13/18 09:58 Dose: 40 mg Escitalopram Oxalate (Lexapro) 5 mg PEG HS [facility] Last Admin: 09/12/18 21:36 Dose: 5 mg Famotidine (Pepcid) 40 mg PEG HS [facility] Last Admin: 09/12/18 21:37 Dose: 40 mg Fluconazole (Diflucan) 200 mg PEG DAILY [facility]; Protocol Last Admin: 09/13/18 10:00 Dose: 200 mg Home Med (Desmopressin [Ddavp]) 0.1 mg PEG BID [facility] Labetalol HCl (Trandate) 200 mg PEG Q12 [facility] Last Admin: 09/13/18 10:09 Dose: 200 mg Losartan Potassium (Cozaar) 100 mg PEG DAILY [facility] Last Admin: 09/13/18 10:02 Dose: 100 mg Nystatin (Nystop Topical Powder) 1 applic TOP QSHIFT [facility] Last Admin: 09/13/18 10:12 Dose: 1 applic Tamsulosin HCl (Flomax) 0.4 mg PEG DAILY [facility] Last Admin: 09/13/18 10:03 Dose: 0.4 mg Valproate Sodium (Depakene Oral Syrup) 750 mg PEG BID [facility] - Labs Labs: 09/13/18 04:35 09/13/18 04:35 PT 11.9 Seconds (9.8-13.1) 09/11/18 11:22 INR 1.0 09/11/18 11:22 APTT 34.1 Seconds (25.6-37.1) 09/11/18 11:22 - Head Exam Head Exam: ATRAUMATIC - Eye Exam Eye Exam: Normal appearance - ENT Exam ENT Exam: Normal Exam - Neck Exam Neck Exam: Full ROM - Respiratory Exam Respiratory Exam: Clear to Ausculation Bilateral - Cardiovascular Exam Cardiovascular Exam: REGULAR RHYTHM - GI/Abdominal Exam GI & Abdominal Exam: Soft, Normal Bowel Sounds. absent: Tenderness Assessment and Plan (1) PEG tube malfunction Assessment & Plan: Discussed with his at bedside. Original PEG still in place. It was removed by pulling through abdominal wall. Repacement PEG inserted easily through opening. 20 Fr balloon type. Auscultation done to confirm placement and covered with gauze. Status: Acute
[2018-09-13] MEDS: Famotidine 40 MG/5 ML PEG SCH (22:22)
[2018-09-14 06:06] LABS: BASO # 0.1 K/uL (0.0-0.2); BASO % 0.7 % (0.0-2.0); EOS # 0.5 K/uL (0.0-0.7); EOS % 3.9 % (0.0-4.0); HEMOGLOBIN 12.3 g/dL (12.0-18.0); LYMPH # 2.9 K/uL (1.0-4.3); LYMPH % 24.5 % (20.0-40.0); MEAN CELL VOLUME 88.3 fl (80.0-94.0); MEAN CORPUSCULAR HEMOGLOBIN 29.3 pg (27.0-31.0); MEAN CORPUSCULAR HGB CONC 33.2 g/dL (33.0-37.0); MEAN PLATELET VOLUME 8.2 fl (7.2-11.7); MONO # 0.8 K/uL (0.0-0.8); MONO % 7.2 % (0.0-10.0); NEUT # 7.5 K/uL (1.8-7.0); NEUT % 63.7 % (50.0-75.0); RBC 4.2 Mil/uL (4.40-5.90); WHITE BLOOD COUNT 11.7 K/uL (4.8-10.8)
[2018-09-14 06:31] LABS: ALB/GLOB RATIO 1.2 (1.0-2.1); ALBUMIN 3.9 g/dL (3.5-5.0); ALT/SGPT 25 U/L (21-72); AST/SGOT 23 U/L (17-59); BLOOD UREA NITROGEN 11 mg/dl (9-20); CALCIUM 8.7 mg/dL (8.4-10.2); GFR NON-AFRICAN AMERICAN > 60
[2018-09-14 08:45] VITALS: RESP 20
[2018-09-14] MEDS ORDERED: Valproic Acid 250 mg/5 ml Oral Syrup (60 ml) PO SCH (09:00)
[2018-09-14] MEDS: Enoxaparin 40 mg Syringe SC SCH (09:00)
[2018-09-14] MEDS: Valproic Acid 250 mg/5 ml Oral Syrup (60 ml) PEG SCH ×2 (09:53→17:01)
--- NOTE | 2018-09-14 11:05 | CP.PCM.PN ---
Subjective - Date & Time of Evaluation Date of Evaluation: 09/14/18 Time of Evaluation: 11:03 - Subjective Subjective: Neuro Follow Up Note: Mr. Gibson was evaluated this morning at bedside with present. Pt is currently awake and alert; able to nonverbally communicate with me. Per pt's , she noticed this morning that his left leg is twitching on/off. While I was with him he did have 3 episodes where his left leg jerked. Pt denies to me h/a, dizziness, visual changes, chest pain, abd pain. Pt's also states that she would like his peg tube changed 2/2 discoloration in the tubing. Objective - Vital Signs/Intake and Output Vital Signs (last 24 hours): Temp Pulse Resp BP Pulse Ox 98.5 F 76 20 138/84 99 09/14/18 08:00 09/14/18 09:53 09/14/18 08:00 09/14/18 09:53 09/14/18 08:00 Intake and Output: 09/14/18 09/14/18 06:59 18:59 Output Total 350 Balance -350 - Medications Medications: Current Medications Amlodipine Besylate (Norvasc) 10 mg PEG DAILY ON LICENSE OF [facility] Last Admin: 09/14/18 09:53 Dose: 10 mg Aspirin (Ecotrin) 81 mg PO DAILY ON LICENSE OF [facility] Last Admin: 09/14/18 09:52 Dose: 81 mg Atorvastatin Calcium (Lipitor) 40 mg PEG HS ON LICENSE OF [facility] Last Admin: 09/13/18 22:22 Dose: 40 mg Enoxaparin Sodium (Lovenox) 40 mg SC DAILY ON LICENSE OF [facility]; Protocol Last Admin: 09/13/18 09:58 Dose: 40 mg Escitalopram Oxalate (Lexapro) 5 mg PEG HS ON LICENSE OF [facility] Last Admin: 09/13/18 22:22 Dose: 5 mg Famotidine (Pepcid) 40 mg PEG HS ON LICENSE OF [facility] Last Admin: 09/13/18 22:22 Dose: 40 mg Fluconazole (Diflucan) 200 mg PEG DAILY ON LICENSE OF [facility]; Protocol Last Admin: 09/14/18 09:52 Dose: 200 mg Home Med (Desmopressin [Ddavp]) 0.1 mg PEG BID ON LICENSE OF [facility] Labetalol HCl (Trandate) 200 mg PEG Q12 JAIMIE Last Admin: 09/14/18 09:52 Dose: 200 mg Losartan Potassium (Cozaar) 100 mg PEG DAILY ON LICENSE OF [facility] Last Admin: 09/14/18 09:52 Dose: 100 mg Nystatin (Nystop Topical Powder) 1 applic TOP QSHIFT ON LICENSE OF [facility] Last Admin: 09/13/18 10:12 Dose: 1 applic Tamsulosin HCl (Flomax) 0.4 mg PEG DAILY ON LICENSE OF [facility] Last Admin: 09/14/18 09:52 Dose: 0.4 mg Valproate Sodium (Depakene Oral Syrup) 750 mg PEG BID ON LICENSE OF [facility] Last Admin: 09/14/18 09:53 Dose: 750 mg - Labs Labs: 09/14/18 04:30 09/14/18 04:30 PT 11.9 Seconds (9.8-13.1) 09/11/18 11:22 INR 1.0 09/11/18 11:22 APTT 34.1 Seconds (25.6-37.1) 09/11/18 11:22 Assessment and Plan (1) New onset seizure Assessment & Plan: Imaging reviewed: -Brain MRI (09/13/18): There is an area of encephalomalacia and hemosiderin deposition in the right thalamus measuring 2 x 2.7 cm. There is atrophy with enlargement of the right lateral ventricle. Microvascular changes are seen in the periventricular white matter. There is also minimal hemosiderin deposition and encephalomalacia in the left basal ganglia. Abnormal signal intensity is seen in the right mid brain cerebral peduncle consistent with axonal degeneration. The findings are not significantly changed. -EEG (09/12/08): Impression: The findings are in keeping with a focal cortical abnormality involving the right frontal/central area, in keeping with a stru ctural abnormality in the same area. No seizures, not in status epilepticus. -CT Head (09/11/18): No intracranial mass, hemorrhage or evidence of acute infarct. High right frontal cystic encephalomalacia beneath a craniotomy. Bilateral basal ganglia infarcts with wallerian degeneration as described in the medulla and gary. Chronic white matter ischemic change. Left anterior temporal arachnoid cyst. Chronic paranasal sinusitis. -MRI report reviewed with Dr. Noel; there is no acute stroke. -Valproic Acid level normal. -Continue Valproic Acid 750 mg PEG BID---please continue this dose at home. -Continue seizure precautions. -Notify neuro of any acute changes in pt's condition. No further neuro recommendations. Pt to f/u with Dr. Genao or Dr. Noel in the office. Reconsult prn. Thank you for this consultation. Cris Myrick, NICKI, COLOR MIXER d/w Dr. Noel Status: Acute
--- NOTE | 2018-09-14 12:48 | CP.PCM.DIS ---
<Sloan Waggoner - Last Filed: 09/14/18 12:57> Provider - Provider Date of Admission: 09/11/18 13:56 Attending physician: Mason Reagan MD Consults: 09/11/18 14:01 Neurology Consult Stat Comment: Consulting Provider: Zakiya Noel Consulting Physician: Zakiya Noel Reason for Consult: New onset seizure 09/12/18 04:23 Case Management Referral Routine Comment: Physician Instructions: Reason For Exam: Reason for Referral: Shipping Specialist Eval Nursing Referral for Wound Care Routine Comment: red splotches over neck, arms, back, sacrum, legs Physician Instructions: Reason For Exam: reddened sacrum, fungal like infection 09/12/18 07:52 Gastroenterology Consult Routine Comment: Consulting Provider: Bo Call Consulting Physician: Bo Call Reason for Consult: replace PEG tube, due to PEG tube is dirty 09/12/18 12:08 Urology Consult Routine Comment: Consulting Provider: Fernando Shah Consulting Physician: Fernando Shah Reason for Consult: primary urologist, patient has daniels catheter Time Spent in preparation of Discharge (in minutes): 20 Diagnosis - Discharge Diagnosis (1) CVA, old, aphasia Status: Chronic (2) CVA, old, dysphagia Status: Chronic (3) New onset seizure Status: Acute (4) PEG tube malfunction Status: Chronic (5) UTI (urinary tract infection) Status: Chronic (6) DVT (deep venous thrombosis) Status: Acute (7) Diabetes mellitus Status: Chronic (8) Hyperkalemia Status: Acute (9) Hypertension Status: Chronic (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 Hospital Course - Lab Results Lab Results: Micro Results 09/11/18 18:53 Urine Random Urine Culture - Final Citrobacter Diversus Enterococcus Faecalis Most Recent Lab Values WBC 11.7 K/uL (4.8-10.8) H 09/14/18 04:30 RBC 4.20 Mil/uL (4.40-5.90) L 09/14/18 04:30 Hgb 12.3 g/dL (12.0-18.0) 09/14/18 04:30 Hct 37.1 % (35.0-51.0) 09/14/18 04:30 MCV 88.3 fl (80.0-94.0) 09/14/18 04:30 MCH 29.3 pg (27.0-31.0) 09/14/18 04:30 MCHC 33.2 g/dL (33.0-37.0) 09/14/18 04:30 RDW 14.0 % (11.5-14.5) 09/14/18 04:30 Plt Count 395 K/uL (130-400) 09/14/18 04:30 MPV 8.2 fl (7.2-11.7) 09/14/18 04:30 Neut % (Auto) 63.7 % (50.0-75.0) 09/14/18 04:30 Lymph % (Auto) 24.5 % (20.0-40.0) 09/14/18 04:30 [place] % (Auto) 7.2 % (0.0-10.0) 09/14/18 04:30 Eos % (Auto) 3.9 % (0.0-4.0) 09/14/18 04:30 Baso % (Auto) 0.7 % (0.0-2.0) 09/14/18 04:30 Neut # (Auto) 7.5 K/uL (1.8-7.0) H 09/14/18 04:30 Lymph # (Auto) 2.9 K/uL (1.0-4.3) 09/14/18 04:30 [place] # (Auto) 0.8 K/uL (0.0-0.8) 09/14/18 04:30 Eos # (Auto) 0.5 K/uL (0.0-0.7) 09/14/18 04:30 Baso # (Auto) 0.1 K/uL (0.0-0.2) 09/14/18 04:30 PT 11.9 Seconds (9.8-13.1) 09/11/18 11:22 INR 1.0 09/11/18 11:22 APTT 34.1 Seconds (25.6-37.1) 09/11/18 11:22 Sodium 144 mmol/l (132-148) 09/14/18 04:30 Potassium 3.8 MMOL/L (3.6-5.0) 09/14/18 04:30 Chloride 106 mmol/L (98-107) 09/14/18 04:30 Carbon Dioxide 32 mmol/L (22-30) H 09/14/18 04:30 Anion Gap 10 (10-20) 09/14/18 04:30 BUN 11 mg/dl (9-20) 09/14/18 04:30 Creatinine 0.8 mg/dl (0.8-1.5) 09/14/18 04:30 Est GFR ( Amer) > 60 09/14/18 04:30 Est GFR (Non-Af Amer) > 60 09/14/18 04:30 POC Glucose (mg/dL) 81 mg/dL (65-110) 09/14/18 08:58 Random Glucose 79 mg/dL (75-110) 09/14/18 04:30 Calcium 8.7 mg/dL (8.4-10.2) 09/14/18 04:30 Phosphorus 3.5 mg/dl (2.5-4.5) 09/12/18 05:25 Magnesium 2.1 MG/DL (1.6-2.3) 09/12/18 05:25 Total Bilirubin 0.5 mg/dl (0.2-1.3) 09/14/18 04:30 AST 23 U/L (17-59) 09/14/18 04:30 ALT 25 U/L (21-72) 09/14/18 04:30 Alkaline Phosphatase 61 U/L (38-126) 09/14/18 04:30 Total Protein 7.0 G/DL (6.3-8.2) 09/14/18 04:30 Albumin 3.9 g/dL (3.5-5.0) 09/14/18 04:30 Globulin 3.2 gm/dL (2.2-3.9) 09/14/18 04:30 Albumin/Globulin Ratio 1.2 (1.0-2.1) 09/14/18 04:30 Urine Color Yellow (YELLOW) 09/11/18 13:05 Urine Clarity Cloudy (Clear) 09/11/18 13:05 Urine pH 6.0 (5.0-8.0) 09/11/18 13:05 Ur Specific [place] 1.010 (1.003-1.030) 09/11/18 13:05 Urine Protein 30 mg/dL (NEGATIVE) 09/11/18 13:05 Urine Glucose (UA) Neg mg/dL (NEGATIVE) 09/11/18 13:05 Urine Ketones Negative mg/dL (NEGATIVE) 09/11/18 13:05 Urine Blood Small (NEGATIVE) 09/11/18 13:05 Urine Nitrate Negative (NEGATIVE) 09/11/18 13:05 Urine Bilirubin Negative (NEGATIVE) 09/11/18 13:05 Urine Urobilinogen 0.2-1.0 mg/dL (0.2-1.0) 09/11/18 13:05 Ur Leukocyte Esterase Large Byron/uL (Negative) 09/11/18 13:05 Urine RBC (Auto) 2 /hpf (0-3) 09/11/18 13:05 Urine WBC Clumps (Auto) Many /hpf (NONE) H 09/11/18 13:05 Urine Microscopic WBC 347 /hpf (0-5) H 09/11/18 13:05 Amorphous Sediment Moderate /ul (<OCC) H 09/11/18 13:05 Urine Bacteria Occ (<OCC) H 09/11/18 13:05 Valproic Acid 50.6 ug/mL (50.0-100.0) 09/13/18 14:45 - Hospital Course Hospital Course: 52 yo male HTN, Hypercholesterolemia, Hyperlipidemia, Mitral Valve Prolapse, TIA, 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 Admitted due to new onset of seizure. No trauma or fall. Dr Roldan was consulted. Loading dose of Valproate and then placed on depakote 500 bid. Patient sent to MRI, CT ,EEG which had no acute change. Patient is not in status epileptics, no acute management for now and patient should follow up with neurologist. During his stay patient had Positive culture in urine, As per Dr. 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 PEG tube was replaced by DR Call. During his stay patient had treatd for his HTN, DM. Patient will be discharged home and follow up with neurology patient will continue with Valproic Acid 750 mg BID Follow up with PCP in 1 week Diagnostic image MRI: There is an area of encephalomalacia and hemosiderin deposition in the right thalamus measuring 2 x 2.7 cm. There is atrophy with enlargement of the right lateral ventricle. Microvascular changes are seen in the periventricular white matter. There is also minimal hemosiderin deposition and encephalomalacia in the left basal ganglia. Abnormal signal intensity is seen in the right mid brain cerebral peduncle consistent with axonal degeneration. The findings are not significantly changed CT scan No intracranial mass, hemorrhage or evidence of acute infarct. High right frontal cystic encephalomalacia beneath a craniotomy. Bilateral basal ganglia infarcts with wallerian degeneration as described in the medulla and gary. Chronic white matter ischemic change. Left anterior temporal arachnoid cyst. Chronic paranasal sinusitis. Electroencephalogram Report The findings are in keeping with a focal cortical abnormality involving the right frontal/central area, in keeping with a structural abnormality in the same area. No seizures, not in status epileptics. Discharge Exam - Head Exam Head Exam: ATRAUMATIC, NORMAL INSPECTION, NORMOCEPHALIC - Eye Exam Eye Exam: EOMI, Normal appearance, PERRL Pupil Exam: NORMAL ACCOMODATION, PERRL - Respiratory Exam Respiratory Exam: Clear to PA & Lateral, NORMAL BREATHING PATTERN, UNREMARKABLE - Cardiovascular Exam Cardiovascular Exam: REGULAR RHYTHM, +S2, Systolic Murmur - GI/Abdominal Exam GI & Abdominal Exam: Normal Bowel Sounds, Unremarkable - Extremities Exam Additional comments: LEft paralysis - Neurological Exam Neurological exam: Alert - Psychiatric Exam Psychiatric exam: Normal Affect - Skin Skin Exam: Dry, Normal Color, Rash, Warm Discharge Plan - Discharge Medications Prescriptions: Valproic Acid [Depakene Oral Syrup] 750 mg PEG BID #900 ml - Follow Up Plan Condition: STABLE Disposition: HOME/ ROUTINE Instructions: Urinary Tract Infection, Adult (DC), How to Care for Your PEG Tube , Seizures, Adult (DC) Additional Instructions: follow up with in 2 weeks Referrals: Zakiya Noel MD [Medical Doctor] - Monalisa Domínguez MD [Staff Provider] - Bo Call MD [Staff Provider] - <Mason Reagan - Last Filed: 09/14/18 13:37> Provider - Provider Date of Admission: 09/11/18 13:56 Attending physician: Mason Reagan MD Consults: 09/11/18 14:01 Neurology Consult Stat Comment: Consulting Provider: Zakiya Noel Consulting Physician: Zakiya Noel Reason for Consult: New onset seizure 09/12/18 04:23 Case Management Referral Routine Comment: Physician Instructions: Reason For Exam: Reason for Referral: Shipping Specialist Eval Nursing Referral for Wound Care Routine Comment: red splotches over neck, arms, back, sacrum, legs Physician Instructions: Reason For Exam: reddened sacrum, fungal like infection 09/12/18 07:52 Gastroenterology Consult Routine Comment: Consulting Provider: Bo Call Consulting Physician: Bo Call Reason for Consult: replace PEG tube, due to PEG tube is dirty 09/12/18 12:08 Urology Consult Routine Comment: Consulting Provider: Fernando Shah Consulting Physician: Fernando Shah Reason for Consult: primary urologist, patient has daniels catheter Hospital Course - Lab Results Lab Results: Micro Results 09/11/18 18:53 Urine Random Urine Culture - Final Citrobacter Diversus Enterococcus Faecalis Most Recent Lab Values WBC 11.7 K/uL (4.8-10.8) H 09/14/18 04:30 RBC 4.20 Mil/uL (4.40-5.90) L 09/14/18 04:30 Hgb 12.3 g/dL (12.0-18.0) 09/14/18 04:30 Hct 37.1 % (35.0-51.0) 09/14/18 04:30 MCV 88.3 fl (80.0-94.0) 09/14/18 04:30 MCH 29.3 pg (27.0-31.0) 09/14/18 04:30 MCHC 33.2 g/dL (33.0-37.0) 09/14/18 04:30 RDW 14.0 % (11.5-14.5) 09/14/18 04:30 Plt Count 395 K/uL (130-400) 09/14/18 04:30 MPV 8.2 fl (7.2-11.7) 09/14/18 04:30 Neut % (Auto) 63.7 % (50.0-75.0) 09/14/18 04:30 Lymph % (Auto) 24.5 % (20.0-40.0) 09/14/18 04:30 [place] % (Auto) 7.2 % (0.0-10.0) 09/14/18 04:30 Eos % (Auto) 3.9 % (0.0-4.0) 09/14/18 04:30 Baso % (Auto) 0.7 % (0.0-2.0) 09/14/18 04:30 Neut # (Auto) 7.5 K/uL (1.8-7.0) H 09/14/18 04:30 Lymph # (Auto) 2.9 K/uL (1.0-4.3) 09/14/18 04:30 [place] # (Auto) 0.8 K/uL (0.0-0.8) 09/14/18 04:30 Eos # (Auto) 0.5 K/uL (0.0-0.7) 09/14/18 04:30 Baso # (Auto) 0.1 K/uL (0.0-0.2) 09/14/18 04:30 PT 11.9 Seconds (9.8-13.1) 09/11/18 11:22 INR 1.0 09/11/18 11:22 APTT 34.1 Seconds (25.6-37.1) 09/11/18 11:22 Sodium 144 mmol/l (132-148) 09/14/18 04:30 Potassium 3.8 MMOL/L (3.6-5.0) 09/14/18 04:30 Chloride 106 mmol/L (98-107) 09/14/18 04:30 Carbon Dioxide 32 mmol/L (22-30) H 09/14/18 04:30 Anion Gap 10 (10-20) 09/14/18 04:30 BUN 11 mg/dl (9-20) 09/14/18 04:30 Creatinine 0.8 mg/dl (0.8-1.5) 09/14/18 04:30 Est GFR ( Amer) > 60 09/14/18 04:30 Est GFR (Non-Af Amer) > 60 09/14/18 04:30 POC Glucose (mg/dL) 81 mg/dL (65-110) 09/14/18 08:58 Random Glucose 79 mg/dL (75-110) 09/14/18 04:30 Calcium 8.7 mg/dL (8.4-10.2) 09/14/18 04:30 Phosphorus 3.5 mg/dl (2.5-4.5) 09/12/18 05:25 Magnesium 2.1 MG/DL (1.6-2.3) 09/12/18 05:25 Total Bilirubin 0.5 mg/dl (0.2-1.3) 09/14/18 04:30 AST 23 U/L (17-59) 09/14/18 04:30 ALT 25 U/L (21-72) 09/14/18 04:30 Alkaline Phosphatase 61 U/L (38-126) 09/14/18 04:30 Total Protein 7.0 G/DL (6.3-8.2) 09/14/18 04:30 Albumin 3.9 g/dL (3.5-5.0) 09/14/18 04:30 Globulin 3.2 gm/dL (2.2-3.9) 09/14/18 04:30 Albumin/Globulin Ratio 1.2 (1.0-2.1) 09/14/18 04:30 Urine Color Yellow (YELLOW) 09/11/18 13:05 Urine Clarity Cloudy (Clear) 09/11/18 13:05 Urine pH 6.0 (5.0-8.0) 09/11/18 13:05 Ur Specific [place] 1.010 (1.003-1.030) 09/11/18 13:05 Urine Protein 30 mg/dL (NEGATIVE) 09/11/18 13:05 Urine Glucose (UA) Neg mg/dL (NEGATIVE) 09/11/18 13:05 Urine Ketones Negative mg/dL (NEGATIVE) 09/11/18 13:05 Urine Blood Small (NEGATIVE) 09/11/18 13:05 Urine Nitrate Negative (NEGATIVE) 09/11/18 13:05 Urine Bilirubin Negative (NEGATIVE) 09/11/18 13:05 Urine Urobilinogen 0.2-1.0 mg/dL (0.2-1.0) 09/11/18 13:05 Ur Leukocyte Esterase Large Byron/uL (Negative) 09/11/18 13:05 Urine RBC (Auto) 2 /hpf (0-3) 09/11/18 13:05 Urine WBC Clumps (Auto) Many /hpf (NONE) H 09/11/18 13:05 Urine Microscopic WBC 347 /hpf (0-5) H 09/11/18 13:05 Amorphous Sediment Moderate /ul (<OCC) H 09/11/18 13:05 Urine Bacteria Occ (<OCC) H 09/11/18 13:05 Valproic Acid 50.6 ug/mL (50.0-100.0) 09/13/18 14:45 Attending/Attestation - Attestation I have personally seen and examined this patient.: Yes I have fully participated in the care of the patient.: Yes I have reviewed all pertinent clinical information, including history, physical exam and plan: Yes Notes (Text): 09/14/18 13:36 Patient seen and examined with resident. Case discussed and agreed with assessment .
--- NOTE | 2018-09-14 13:36 | CP.PCM.PCO ---
Physician Communication Note - Physician Communication Note Physician Communication Note: Neuro D/C Recs
[2018-09-14 15:49] VITALS: BP 148/92; PULSE 78; TEMP 99.3; O2SAT 98
--- NOTE | 2018-09-14 17:25 | CARD ---
APPROVED REPORT Date of service: 09/14/2018 EKG Measurement Heart [id number] <Conclusion> Sinus rhythm with 1st degree AV block T wave abnormality, consider lateral ischemia Abnormal ECG
--- NOTE | 2018-09-15 16:10 | PQF ---
PROVIDER RESPONSE TEXT: Clarification: New onset seizure due to previous CVA. EEG abnormalities are consistent with the area of intracranial abnormalities from previous CVA and craniotomy. Thank you. Cris Myrick DNP, VOIP NETWORK TECHNICIAN D/w Dr. Noel REVIEWER QUERY TEXT: Clarification of Clinical Diagnostic Findings Etiology of Seizure if known: I.e.:due to previous CVA or adverse effect of medication etc. OR: Unable to determine OR: Other explanation of clinical finding 09/13 Neuro MATERIAL PREPARATION WORKER: progress note includes: previous CVA New Onset Seizure: see full note in the EMR The patient's Clinical Indicators include: -- Query created by: Dinora Marte on 09/15/2018 7:46 AM Electronically signed by: Cris Myrick APN 09/15/2018 4:07 PM
== END 2018-09-14 19:15 | disposition home or self-care (01) | DRG 57 ==
LOC: H.ER 09:41 → H.ERHOLD 13:56 → H.TEL 09-12 00:50
PROC: 0D20XUZ Change Feeding Device in Upper Intestinal Tract, External Approach (ICD-10-PCS; principal; 2018-09-13)
DX: I69.398 Other sequelae of cerebral infarction (principal); K94.23 Gastrostomy malfunction; I69.354 Hemiplegia and hemiparesis following cerebral infarction affecting left non-dominant side; R56.9 Unspecified convulsions; I69.320 Aphasia following cerebral infarction; R13.10 Dysphagia, unspecified; E11.9 Type 2 diabetes mellitus without complications; B37.2 Candidiasis of skin and nail; E78.00 Pure hypercholesterolemia, unspecified; I10 Essential (primary) hypertension; E78.5 Hyperlipidemia, unspecified; I34.1 Nonrheumatic mitral (valve) prolapse; Z79.4 Long term (current) use of insulin; Z79.82 Long term (current) use of aspirin; I69.391 Dysphagia following cerebral infarction; Z74.01 Bed confinement status; E87.5 Hyperkalemia; H49.00 Third [oculomotor] nerve palsy, unspecified eye; N48.89 Other specified disorders of penis